=== PATIENT | male | born 1945 | race Caucasian/White ===

== ENCOUNTER 2016-07-23 07:21 | Outpatient (CLI) | payer MEDICARE, OTHER ==
[2016-07-23 19:13] LABS: BASOPHILS % (AUTO) 0.6 %; EOSINOPHILS # (AUTO) 0.1 10^3/uL (0.0-0.7); EOSINOPHILS % (AUTO) 1.5 %; HCT - HEMATOCRIT 44.1 % (42.0-52.0); HGB - HEMOGLOBIN 14.9 g/dL (14.0-18.0); LYMPHOCYTES # (AUTO) 2.1 10^3/uL (1.5-3.5); LYMPHOCYTES % (AUTO) 37.4 %; MEAN CORPUSCULAR HGB CONC 33.9 g/dL (32.0-36.0); MEAN CORPUSCULAR VOLUME 94.6 fL (80.0-94.0); MONOCYTES # (AUTO) 0.5 10^3/uL (0.0-1.0); MONOCYTES % (AUTO) 8.6 %; NEUTROPHILS % (AUTO) 51.9 %; NUCLEATED RED BLOOD CELLS AUTO 0.2 /100WBC; RED BLOOD COUNT 4.66 10^6/uL (4.70-6.10); RED CELL DISTRIBUTION WIDTH 13.1 % (12.0-15.0); UNCORRECTED WHITE BLOOD COUNT 5.7 x10^3/uL; WHITE BLOOD COUNT 5.7 x10^3/uL (4.8-10.8)
[2016-07-23 19:23] LABS: ALBUMIN/GLOBULIN RATIO 1.7 (1.0-2.2); BUN - BLOOD UREA NITROGEN 18 mg/dL (6-20); CALCIUM 9.3 mg/dL (8.5-10.3); CARBON DIOXIDE - CO2 25 mmol/L (21-32); CHLORIDE 102 mmol/L (101-111); CHOL/HDL RATIO 3.3 (<5.0); CHOLESTEROL 131 mg/dL; CREATININE 1.1 mg/dL (0.6-1.2); GFR - MDRD 66 (>89); GLUCOSE 104 mg/dL (70-100); HDL CHOLESTEROL 40 mg/dL; LDL/HDL RATIO 1.7 (<3.6); POTASSIUM 3.8 mmol/L (3.5-5.0); SODIUM 134 mmol/L (135-145); TRIGLYCERIDES 120 mg/dL; VLDL CHOLESTEROL 24 mg/dL
[2016-07-23 19:33] LABS: PSA FREE < 0.005 ng/mL (0.16-2.81)
[2016-07-23 20:03] LABS: HEMOGLOBIN A1C 1.14 g/dL
== END 2016-07-23 07:22 | disposition home or self-care (01) ==
LOC: LAB.N 07:21
PROVIDERS: ATTEND Family Medicine
DX: E78.5 Hyperlipidemia, unspecified (principal); I10 Essential (primary) hypertension; E11.9 Type 2 diabetes mellitus without complications; C61 Malignant neoplasm of prostate
CPT/HCPCS: 36415; 80053; 80061; 83036; 84154; 85025

== ENCOUNTER 2016-11-03 07:34 | Outpatient (CLI) | payer MEDICARE, OTHER ==
[2016-11-03 14:11] LABS: CALCIUM 9.5 mg/dL (8.5-10.3); CREATININE 1.1 mg/dL (0.6-1.2)
[2016-11-03 14:14] LABS: HEMOGLOBIN A1C 0.97 g/dL
== END 2016-11-03 07:35 | disposition home or self-care (01) ==
LOC: LAB.N 07:34
PROVIDERS: ATTEND Family Medicine
DX: I10 Essential (primary) hypertension (principal); E11.9 Type 2 diabetes mellitus without complications
CPT/HCPCS: 36415; 80048; 83036

== ENCOUNTER 2017-02-11 08:00 | Outpatient (CLI) | payer MEDICARE, OTHER ==
[2017-02-11 14:08] LABS: CALCIUM 9.3 mg/dL (8.5-10.3); POTASSIUM 4.1 mmol/L (3.5-5.0)
[2017-02-11 14:12] LABS: HEMOGLOBIN A1C 1.23 g/dL
== END 2017-02-11 08:01 | disposition home or self-care (01) ==
LOC: LAB.N 08:00
PROVIDERS: ATTEND Family Medicine
DX: E11.9 Type 2 diabetes mellitus without complications (principal)
CPT/HCPCS: 36415; 80048; 83036

== ENCOUNTER 2017-05-22 07:55 | Outpatient (CLI) | payer MEDICARE, OTHER ==
[2017-05-22 12:33] LABS: CALCIUM 8.9 mg/dL (8.5-10.3)
[2017-05-22 12:38] LABS: HB2 TOTAL 15.9 g/dL; HEMOGLOBIN A1C 1.04 g/dL; HEMOGLOBIN A1C % 8.1 % (4.6-6.2)
== END 2017-05-22 07:56 | disposition home or self-care (01) ==
LOC: LAB.N 07:55
PROVIDERS: ATTEND Family Medicine
DX: E11.9 Type 2 diabetes mellitus without complications (principal)
CPT/HCPCS: 36415; 80048; 83036

== ENCOUNTER 2017-06-12 10:00 | Outpatient (CLI) | payer MEDICARE, OTHER | END 2017-06-12 10:15 | disposition home or self-care (01) | LOC: RT.N 10:00 | PROVIDERS: ATTEND Family Medicine | DX: R07.89 Other chest pain (principal) | CPT/HCPCS: 93005 ==

== ENCOUNTER 2017-09-01 08:32 | Outpatient (CLI) | payer MEDICARE, OTHER ==
[2017-09-01 13:37] LABS: BASOPHILS % (AUTO) 0.6 %; EOSINOPHILS # (AUTO) 0.1 10^3/uL (0.0-0.7); EOSINOPHILS % (AUTO) 1.4 %; HGB - HEMOGLOBIN 13.9 g/dL (14.0-18.0); LYMPHOCYTES # (AUTO) 1.8 10^3/uL (1.5-3.5); MEAN CORPUSCULAR HEMOGLOBIN 32.5 pg (27.0-31.0); MEAN CORPUSCULAR HGB CONC 33.7 g/dL (32.0-36.0); MEAN CORPUSCULAR VOLUME 96.4 fL (80.0-94.0); MONOCYTES # (AUTO) 0.5 10^3/uL (0.0-1.0); MONOCYTES % (AUTO) 9.8 %; NEUTROPHILS # (AUTO) 2.9 10^3/uL (1.5-6.6); NEUTROPHILS % (AUTO) 54.2 %; PLT - PLATELET COUNT 242 10^3/uL (130-450); RED BLOOD COUNT 4.27 10^6/uL (4.70-6.10); RED CELL DISTRIBUTION WIDTH 13.1 % (12.0-15.0); WHITE BLOOD COUNT 5.4 x10^3/uL (4.8-10.8)
[2017-09-01 13:55] LABS: ALBUMIN 3.9 g/dL (3.2-5.5); ALBUMIN/GLOBULIN RATIO 1.3 (1.0-2.2); ALKALINE PHOSPHATASE 56 IU/L (42-121); ALT ALANINE AMINOTRANSFERASE 33 IU/L (10-60); AST ASPARTATE AMINOTRANSFERASE 28 IU/L (10-42); BILIRUBIN,TOTAL 1.1 mg/dL (0.2-1.0); BUN - BLOOD UREA NITROGEN 13 mg/dL (6-20); CALCIUM 8.9 mg/dL (8.5-10.3); CARBON DIOXIDE - CO2 28 mmol/L (21-32); CHLORIDE 100 mmol/L (101-111); CHOLESTEROL 121 mg/dL; CREATININE 0.9 mg/dL (0.6-1.2); GFR - MDRD 83 (>89); GLUCOSE 160 mg/dL (70-100); HDL CHOLESTEROL 40 mg/dL; LDL CHOLESTEROL,CALCULATED 64 mg/dL; LDL/HDL RATIO 1.6 (<3.6); SODIUM 134 mmol/L (135-145); TOTAL PROTEIN 6.8 g/dL (6.7-8.2); VLDL CHOLESTEROL 17 mg/dL
[2017-09-01 13:56] LABS: HB2 TOTAL 14.2 g/dL; HEMOGLOBIN A1C 1.12 g/dL; HEMOGLOBIN A1C % 9.4 % (4.6-6.2)
== END 2017-09-01 08:33 ==
LOC: LAB.N 08:32
PROVIDERS: ATTEND Family Medicine
DX: E78.5 Hyperlipidemia, unspecified (principal); E11.9 Type 2 diabetes mellitus without complications; I10 Essential (primary) hypertension
CPT/HCPCS: 36415; 80053; 80061; 83036; 83721; 85025

== ENCOUNTER 2017-11-27 08:00 | Outpatient (CLI) | payer MEDICARE, OTHER ==
[2017-11-27 15:43] LABS: CALCIUM 9.3 mg/dL (8.5-10.3)
[2017-11-27 16:28] LABS: HB2 TOTAL 15.5 g/dL; HEMOGLOBIN A1C 0.97 g/dL; HEMOGLOBIN A1C % 7.9 % (4.6-6.2)
== END 2017-11-27 08:01 | disposition home or self-care (01) ==
LOC: LAB.N 08:00
PROVIDERS: ATTEND Family Medicine
DX: E11.65 Type 2 diabetes mellitus with hyperglycemia (principal)
CPT/HCPCS: 36415; 80048; 83036

== ENCOUNTER 2018-03-09 08:00 | Outpatient (CLI) | payer MEDICARE, OTHER ==
[2018-03-09 12:36] LABS: CALCIUM 9.4 mg/dL (8.5-10.3)
[2018-03-09 12:50] LABS: PSA FREE < 0.005 ng/mL (0.16-2.81); PSA TOTAL < 0.008 ng/mL (0.000-2.000)
[2018-03-09 12:56] LABS: HB2 TOTAL 16.4 g/dL; HEMOGLOBIN A1C 0.96 g/dL; HEMOGLOBIN A1C % 7.5 % (4.6-6.2)
== END 2018-03-09 23:59 | disposition home or self-care (01) ==
LOC: LAB.N 08:00
DX: E11.65 Type 2 diabetes mellitus with hyperglycemia (principal); C61 Malignant neoplasm of prostate; I10 Essential (primary) hypertension
CPT/HCPCS: 36415; 80048; 83036; 84153; 84154

== ENCOUNTER 2018-04-07 09:53 | Outpatient (CLI) | payer MEDICARE, OTHER ==
[2018-04-07] MEDS ORDERED: REGADENOSON 0.4 MG/5 ML SYRINGE IVP ONE ×2 (10:31→15:56)
--- NOTE | 2018-04-07 13:29 | CARDIAC PROCEDURE NOTE ---
DATE OF SERVICE: 04/07/2018 Physician: Isabella Wade MD, [facility] INDICATIONS: Chest pain. CARDIAC RISK FACTORS: Male gender, diabetes, hyperlipidemia, hypertension. PROCEDURE: After signing informed consent, the patient underwent a pharmaceutical stress test with nuclear myocardial perfusion imaging. Resting heart rate: 80. Peak heart rate: 115. Resting blood pressure: 145/80. Peak blood pressure: 160/70. Lexiscan was infused per protocol. The patient had brief flushing, no other symptoms. He did not have his "ice-like chest pain that resolves with burping". RESTING EKG: Normal sinus rhythm, right axis deviation, RSR' in V1. EKG AT [facility]: [address] depressions in leads II, III, aVF, and [address] depressions in leads V3 through V6. SUMMARY 1. Abnormal resting EKG with right axis deviation and RSR' suggesting cor pulmonale. 2. Ischemic changes are present by EKG criteria, on this pharmaceutical stress test. 3. Nuclear images reported separately. cc: Griselda Bhakta DO TD: 04/07/2018 13:12 MTDD
== END 2018-04-07 09:54 | disposition home or self-care (01) ==
LOC: DI 09:53
PROVIDERS: ATTEND Family Medicine
DX: R07.89 Other chest pain (principal); R94.31 Abnormal electrocardiogram [ECG] [EKG]
CPT/HCPCS: 78452; 93016; 93017; 93018; A9500; J2785

== ENCOUNTER 2018-09-20 | Outpatient (CLI) | payer MEDICARE, OTHER | END 2018-09-20 23:59 | disposition home or self-care (01) | DX: E11.9 Type 2 diabetes mellitus without complications (principal) ==

== ENCOUNTER 2018-12-27 08:17 | Outpatient (CLI) | payer MEDICARE, OTHER ==
[2018-12-27 12:35] LABS: HB2 TOTAL 14.9 g/dL; HEMOGLOBIN A1C 0.87 g/dL; HEMOGLOBIN A1C % 7.5 % (4.6-6.2)
== END 2018-12-27 23:59 | disposition home or self-care (01) ==
LOC: LAB.N 08:17
PROVIDERS: ATTEND Physician Assistant Medical
DX: E11.9 Type 2 diabetes mellitus without complications (principal)
CPT/HCPCS: 36415; 83036

== ENCOUNTER 2019-05-02 07:06 | Outpatient (CLI) | payer MEDICARE, OTHER ==
[2019-05-02 12:25] LABS: BASOPHILS % (AUTO) 0.4 %; EOSINOPHILS # (AUTO) 0.1 10^3/uL (0.0-0.7); EOSINOPHILS % (AUTO) 1.9 %; HGB - HEMOGLOBIN 13.1 g/dL (14.0-18.0); LYMPHOCYTES # (AUTO) 2.1 10^3/uL (1.5-3.5); LYMPHOCYTES % (AUTO) 30.5 %; MEAN CORPUSCULAR HEMOGLOBIN 30.3 pg (27.0-31.0); MEAN CORPUSCULAR HGB CONC 32.1 g/dL (32.0-36.0); MEAN CORPUSCULAR VOLUME 94.2 fL (80.0-94.0); MEAN PLATELET VOLUME 9.2 fL (7.4-11.4); MONOCYTES # (AUTO) 0.5 10^3/uL (0.0-1.0); MONOCYTES % (AUTO) 7.4 %; NEUTROPHILS % (AUTO) 59.4 %; PLT - PLATELET COUNT 341 10^3/uL (130-450); RED BLOOD COUNT 4.33 10^6/uL (4.70-6.10); RED CELL DISTRIBUTION WIDTH 13.1 % (12.0-15.0); WHITE BLOOD COUNT 6.8 x10^3/uL (4.8-10.8)
[2019-05-02 12:42] LABS: CHOL/HDL RATIO 3.2 (<5.0); CHOLESTEROL 109 mg/dL; HDL CHOLESTEROL 34 mg/dL; LDL CHOLESTEROL,CALCULATED 60 mg/dL; LDL/HDL RATIO 1.8 (<3.6); VLDL CHOLESTEROL 15 mg/dL
[2019-05-02 12:48] LABS: PSA FREE < 0.005 ng/mL (0.16-2.81)
== END 2019-05-02 23:59 | disposition home or self-care (01) ==
LOC: LAB.N 07:06
PROVIDERS: ATTEND Physician Assistant Medical
DX: E78.5 Hyperlipidemia, unspecified (principal); C61 Malignant neoplasm of prostate; I10 Essential (primary) hypertension
CPT/HCPCS: 36415; 80061; 83721; 84153; 84154; 85025

== ENCOUNTER 2019-05-04 07:00 | Outpatient (CLI) | payer MEDICARE, OTHER ==
[2019-05-05 12:26] LABS: BILIRUBIN,URINE NEGATIVE (NEGATIVE); GLUCOSE, URINE (UA) NEGATIVE (NEGATIVE); KETONES,URINE (UA) NEGATIVE (NEGATIVE); NITRITE,URINE NEGATIVE (NEGATIVE); PH,URINE 5.5 PH (5.0-7.5); UROBILINOGEN,URINE 0.2 (NORMAL) E.U./dL (NORMAL)
[2019-05-05 12:28] LABS: CLARITY,URINE CLEAR (CLEAR)
[2019-05-05 12:44] LABS: BACTERIA,URINE Few /HPF (None Seen); RBC,URINE TNTC /HPF (0-5); SQUAMOUS EPITHELIAL CELL,UR RARE Squamous (<= Few)
== END 2019-05-04 23:59 | disposition home or self-care (01) ==
LOC: LAB.R 07:00
PROVIDERS: ATTEND Physician Assistant Medical
DX: R31.9 Hematuria, unspecified (principal)
CPT/HCPCS: 81001; 81003; 87086

== ENCOUNTER 2019-05-04 14:28 | Outpatient (CLI) | payer MEDICARE, OTHER ==
[2019-05-04 18:39] LABS: HB2 TOTAL 13.7 g/dL; HEMOGLOBIN A1C 0.85 g/dL; HEMOGLOBIN A1C % 7.8 % (4.6-6.2)
== END 2019-05-04 23:59 | disposition home or self-care (01) ==
LOC: LAB.N 14:28
PROVIDERS: ATTEND Physician Assistant Medical
DX: E11.9 Type 2 diabetes mellitus without complications (principal)
CPT/HCPCS: 36415; 83036

== ENCOUNTER 2019-08-05 09:22 | Outpatient (CLI) | payer MEDICARE, OTHER ==
[2019-08-05 11:30] LABS: BASOPHILS # (AUTO) 0.1 10^3/uL (0.0-0.1); BASOPHILS % (AUTO) 0.7 %; EOSINOPHILS % (AUTO) 0.6 %; HGB - HEMOGLOBIN 11.6 g/dL (14.0-18.0); LYMPHOCYTES # (AUTO) 1.5 10^3/uL (1.5-3.5); LYMPHOCYTES % (AUTO) 21.2 %; MEAN CORPUSCULAR HEMOGLOBIN 29.4 pg (27.0-31.0); MEAN CORPUSCULAR HGB CONC 32.5 g/dL (32.0-36.0); MEAN CORPUSCULAR VOLUME 90.6 fL (80.0-94.0); MEAN PLATELET VOLUME 8.5 fL (7.4-11.4); MONOCYTES # (AUTO) 0.6 10^3/uL (0.0-1.0); MONOCYTES % (AUTO) 8.7 %; NEUTROPHILS # (AUTO) 4.8 10^3/uL (1.5-6.6); NEUTROPHILS % (AUTO) 68.5 %; PLT - PLATELET COUNT 458 10^3/uL (130-450); RED BLOOD COUNT 3.94 10^6/uL (4.70-6.10); RED CELL DISTRIBUTION WIDTH 13.2 % (12.0-15.0)
[2019-08-05 11:54] LABS: HEMOGLOBIN A1C 0.68 g/dL; HEMOGLOBIN A1C % 7.3 % (4.6-6.2)
[2019-08-05 11:56] LABS: ALBUMIN 3.5 g/dL (3.2-5.5); ALBUMIN/GLOBULIN RATIO 0.8 (1.0-2.2); BILIRUBIN,TOTAL 0.9 mg/dL (0.2-1.0); CREATININE 1.3 mg/dL (0.6-1.2); TOTAL PROTEIN 7.7 g/dL (6.7-8.2)
== END 2019-08-05 09:23 | disposition home or self-care (01) ==
LOC: LAB.WCP 09:22
PROVIDERS: ATTEND Physician Assistant
DX: E11.9 Type 2 diabetes mellitus without complications (principal)
CPT/HCPCS: 36415; 80053; 83036; 85025

== ENCOUNTER 2020-05-11 07:06 | Outpatient (CLI) | payer MEDICARE, OTHER ==
[2020-05-11 12:27] LABS: BASOPHILS % (AUTO) 0.7 %; EOSINOPHILS # (AUTO) 0.1 10^3/uL (0.0-0.7); EOSINOPHILS % (AUTO) 1.9 %; HCT - HEMATOCRIT 40.5 % (42.0-52.0); HGB - HEMOGLOBIN 12.8 g/dL (14.0-18.0); LYMPHOCYTES # (AUTO) 1.7 10^3/uL (1.5-3.5); LYMPHOCYTES % (AUTO) 29.8 %; MEAN CORPUSCULAR HEMOGLOBIN 29.4 pg (27.0-31.0); MEAN CORPUSCULAR HGB CONC 31.6 g/dL (32.0-36.0); MEAN CORPUSCULAR VOLUME 93.1 fL (80.0-94.0); MEAN PLATELET VOLUME 9.1 fL (7.4-11.4); MONOCYTES # (AUTO) 0.5 10^3/uL (0.0-1.0); MONOCYTES % (AUTO) 8.4 %; NEUTROPHILS # (AUTO) 3.4 10^3/uL (1.5-6.6); PLT - PLATELET COUNT 336 10^3/uL (130-450); RED BLOOD COUNT 4.35 10^6/uL (4.70-6.10); RED CELL DISTRIBUTION WIDTH 13.4 % (12.0-15.0); WHITE BLOOD COUNT 5.7 x10^3/uL (4.8-10.8)
[2020-05-11 12:30] LABS: ALBUMIN 3.9 g/dL (3.2-5.5); ALBUMIN/GLOBULIN RATIO 1.1 (1.0-2.2); ALKALINE PHOSPHATASE 74 IU/L (42-121); ALT ALANINE AMINOTRANSFERASE 14 IU/L (10-60); AST ASPARTATE AMINOTRANSFERASE 15 IU/L (10-42); BILIRUBIN,TOTAL 0.9 mg/dL (0.2-1.0); BUN - BLOOD UREA NITROGEN 24 mg/dL (6-20); CARBON DIOXIDE - CO2 26 mmol/L (21-32); CHLORIDE 101 mmol/L (101-111); CHOL/HDL RATIO 3.5 (<5.0); CHOLESTEROL 111 mg/dL; CREATININE 1.7 mg/dL (0.6-1.2); GFR - MDRD 40 (>89); GLUCOSE 138 mg/dL (70-100); HDL CHOLESTEROL 32 mg/dL; LDL CHOLESTEROL,CALCULATED 61 mg/dL; LDL/HDL RATIO 1.9 (<3.6); POTASSIUM 4.2 mmol/L (3.5-5.0); SODIUM 134 mmol/L (135-145); TOTAL PROTEIN 7.5 g/dL (6.7-8.2); TRIGLYCERIDES 90 mg/dL; VLDL CHOLESTEROL 18 mg/dL
[2020-05-11 12:34] LABS: ESTIMATED AVERAGE GLUCOSE 169 mg/dL (70-100); HEMOGLOBIN A1c% 7.5 % (4.27-6.07)
[2020-05-11 12:38] LABS: THYROID STIMULATING HORMONE 2.15 uIU/mL (0.34-5.60)
[2020-05-11 12:46] LABS: CREATININE,URINE 213.5 mg/dL; MICROALBUM/CREATININE RATIO,UR 4.2 ug/mg (<30.0); MICROALBUMIN,URINE 0.9 mg/dL (0-300.0)
== END 2020-05-11 23:59 | disposition home or self-care (01) ==
LOC: LAB.WCP 07:06
PROVIDERS: ATTEND Physician Assistant Medical
DX: E11.9 Type 2 diabetes mellitus without complications (principal); C61 Malignant neoplasm of prostate; Z95.1 Presence of aortocoronary bypass graft; C64.1 Malignant neoplasm of right kidney, except renal pelvis
CPT/HCPCS: 36415; 80053; 80061; 82043; 82570; 83036; 83721; 84153; 84443; 85025

== ENCOUNTER 2020-05-15 09:37 | Outpatient (CLI) | payer MEDICARE, OTHER ==
--- NOTE | 2020-05-16 12:05 | Ultrasound Report ---
LIMITED ULTRASOUND OF LEFT BREAST: 05/15/2020 CLINICAL: Focal left breast pain. Comparison is made to exams dated: 05/15/2020 ultrasound and 05/15/2020 mammogram - formerly [facility]. Ultrasound of the left breast retroareolar was performed. There is gynecomastia in the left breast that correlates with mammography, reported pain, and reporte d tenderness. IMPRESSION: BENIGN Gynecomastia is present which can be symptomatic. There is no sonographic evidence of malignancy. Findings and recommendations were conveyed to the patient at time of exam. This exam was interpreted at Station ID: [id number]. Electronically Signed By: Shauna Frost M.D. krg/:05/15/2020 12:07:12 Ultrasound BI-RADS: 2 Benign BI-RADS CATEGORY: (2) - 2 Unspecified - other recall n/a LATERALITY: (B)
--- NOTE | 2020-05-16 12:05 | Mammography Report ---
MALE BILATERAL DIGITAL DIAGNOSTIC MAMMOGRAM 3D/2D: 05/15/2020 CLINICAL: Focal bilateral nipple pain. No prior exams were available for comparison. There is gynecomastia in both breasts. No significant masses, calcifications, or other findings are seen in either breast. IMPRESSION: INCOMPLETE: NEEDS ADDITIONAL IMAGING EVALUATION Bilateral gynecomastia is present which corresponds to the palpable, painful areas bilaterally. Bilat eral breast ultrasound is recommended for full evaluation of this area. This was performed immediatel y following this exam. This exam was interpreted at Station ID: [id number]. NOTE: For mammograms, a report in lay terms will be sent to the patient. Approximately 15% of breast malignancies will not be visualized mammographically. In the management of a palpable breast mass, a negative mammogram must not discourage biopsy of a clinically suspicious lesion. Electronically Signed By: Shauna carpio/:05/15/2020 11:04:56 ACR BI-RADS Category 0: Incomplete 3340F PARENCHYMAL PATTERN: (A) - The breast(s) demonstrate(s) scattered fibroglandular densities. BI-RADS CATEGORY: (0) - 0 Ultrasound [id number] Immediate follow-up LATERALITY: (B)
--- NOTE | 2020-05-16 12:05 | Ultrasound Report ---
LIMITED ULTRASOUND OF RIGHT BREAST: 05/15/2020 CLINICAL: Focal right breast pain. Comparison is made to exam dated: 05/15/2020 mammogram - [facility]. Ultrasound of the right breast retroareolar was performed. There is gynecomastia in the right breast that correlates with mammography, reported pain, and report ed tenderness. IMPRESSION: BENIGN Gynecomastia is present and can be symptomatic. There is no sonographic evidence of malignancy. Findings and recommendations were conveyed to the patient at time of exam. This exam was interpreted at Station ID: [id number]. Electronically Signed By: Shauna carpio/:05/15/2020 12:06:16 Ultrasound BI-RADS: 2 Benign BI-RADS CATEGORY: (2) - 2 Unspecified - other recall n/a LATERALITY: (B)
== END 2020-05-15 09:38 | disposition home or self-care (01) ==
LOC: DI 09:37
PROVIDERS: ATTEND Physician Assistant Medical
DX: N62 Hypertrophy of breast (principal)

== ENCOUNTER 2020-06-08 07:30 | Outpatient (CLI) | payer MEDICARE, OTHER ==
[2020-06-08] MEDS ORDERED: IOPAMIDOL-300 100 ML VIAL ONE (07:33)
[2020-06-08] MEDS ORDERED: IOPAMIDOL-300 50 ML VIAL ONE (07:33)
[2020-06-08] MEDS ORDERED: IOPAMIDOL-300 100 ML VIAL IVP ONE (08:59)
[2020-06-08] MEDS ORDERED: IOPAMIDOL-300 50 ML VIAL PO ONE (09:00)
--- NOTE | 2020-06-08 11:12 | CT Report ---
PROCEDURE: Abdomen/Pelvis W INDICATIONS: KIDNEY CA CONTRAST: IV CONTRAST: Isovue 300 ml: 100 PO CONTRAST: Isovue 300 ml50 TECHNIQUE: After the administration of oral and intravenous contrast, 5 mm thick sections acquired from the rivka phragms to the symphysis. 5 mm thick coronal and sagittal reformats were acquired. For radiation do se reduction, the following was used: automated exposure control, adjustment of mA and/or kV accordi ng to patient size. COMPARISON: Chest CT from today. FINDINGS: Image quality: Excellent. ABDOMEN: Lung bases: Lung bases are clear. Heart size is normal. Multiple bibasilar pulmonary nodules consistent with metastatic disease. Specific measured pulmonary nodules are as follows: Image 6/5:0.6 cm right lower lobe pulmonary nodule. Image 9/5:0.9 x 1.5 cm left lower lobe pulmonary nodule Image 14/5:4 separate pulmonary nodules in the left lower lobe, the largest of which measures 0.9 cm. Image 19/5, extreme left lung base, 1.5 cm maximum diameter left lower lobe pulmonary nodule. Solid organs: Liver and spleen are normal in size and enhancement. Gallbladder is surgically absent Biliary system is non dilated. Pancreas enhances normally. No adrenal nodules. Right kidney is kerr rgically absent. Left kidney is unremarkable. Dilated left ureter with question of soft tissue densit y at the distal ureter. Peritoneum and bowel: Bowel loops demonstrate normal wall thickness and caliber. The wall of the cec um and right colon is somewhat prominent, likely secondary to underdistention. No free fluid or air. Nodes and vessels: No retroperitoneal or mesenteric adenopathy by size criteria. Aorta and inferior vena cava are normal in size. Miscellaneous: No ventral hernias. PELVIS: Genitourinary: Bladder is decompressed. Bladder wall is likely thickened. Miscellaneous: Small fat-containing left inguinal hernia. No inguinal adenopathy. Bones: No suspicious bony lesions. No vertebral body compression fractures. IMPRESSION: 1. Findings highly suspicious for pulmonary metastatic disease. Please refer to a separate report for CT chest findings. 2. Surgical absence of right kidney. Left kidney is unremarkable. 3. Dilated left ureter with question of soft tissue mass at the distal aspect of the ureter. Question possible transitional cell carcinoma. 4. Diffuse bladder wall thickening. Comment: Consider CT IVP versus urological referral for left retrograde pyelogram Comment: Reviewed by: Andrade Kraft MD on 06/08/2020 11:10 AM PDT Approved by: Andrade Kraft MD on 06/08/2020 11:10 AM PDT Station ID: [id number]
--- NOTE | 2020-06-08 12:56 | CT Report ---
PROCEDURE: CHEST W INDICATIONS: KIDNEY CA CONTRAST: IV CONTRAST: Isovue 300 ml: 100 PO CONTRAST: Isovue 300 ml50 TECHNIQUE: After the administration of intravenous contrast, 5 mm thick sections acquired from the pulmonary api joe to the posterior costophrenic angles. 7 mm thick coronal MIP reformats were acquired. For radia tion dose reduction, the following was used: automated exposure control, adjustment of mA and/or kV according to patient size. COMPARISON: CT abdomen and pelvis from the same date. FINDINGS: Image quality: Excellent. Lungs and pleura: Multiple bilateral pulmonary nodules, suspicious for pulmonary metastatic disease. Index lesions are as follows: Right lower lobe, posterior subpleural location, image 158/3:0.6 x 1.4 cm. Left lower lobe, image 164/3, 2.0 x 0.9 cm. Left lower lobe, image 169/3, 1.0 x 1.9 cm. Left lower lobe, image 192/3, 0.9 x 1.5 cm. Extreme basilar aspect of left lower lobe, image 222/3, 1.0 x 1.6 cm. No acute air space opacities. No pleural effusions or pneumothorax. Central and peripheral airways are patent and normal in caliber. Mediastinum: Remote midline sternotomy. Probable CABG. Coronary artery calcifications. Heart size is normal. No pericardial effusion. No mediastinal or hilar adenopathy by size criteria. Thoracic ao rta and central pulmonary arteries are normal in size. Esophagus is normal in caliber. No hiatal he rnia. Bones and chest wall: No suspicious bony lesions. No vertebral body compression fractures. No axil irving or supraclavicular adenopathy by size criteria. Thyroid gland is unremarkable as imaged. Abdomen: Visualized upper abdominal solid organs appear normal. Upper abdominal bowel loops are nor mal in caliber. IMPRESSION: Findings are highly suspicious for pulmonary metastatic disease, as described above. Reviewed by: Andrade Kraft MD on 06/08/2020 12:54 PM PDT Approved by: Andrade Kraft MD on 06/08/2020 12:54 PM PDT Station ID: [id number]
--- NOTE | 2020-06-08 16:09 | Nuclear Medicine Report ---
PROCEDURE: Bone Whole Body INDICATIONS: KIDNEY CANCER RADIOPHARMACEUTICAL: 27.3 mCi Tc-99m MDP IV. TECHNIQUE: Delayed whole-body scintigrams were obtained approximately 3-4 hours after intravenous injection of r adiotracer. Anterior and posterior views were acquired from vertex to feet. Additional left and rig ht oblique views of the were obtained. COMPARISON: None available. FINDINGS: No areas of relative intense radiotracer uptake identified about be consistent with osseous metastati c disease. No areas of photopenia identified in the osseous skeleton. Focus of subtle increased radio tracer uptake identified in the left mandible compatible with dental disease. Subtle radiotracer upta ke identified in the cervical spine, shoulders bilaterally and the knees bilaterally compatible with osteoarthritis. No abnormal soft tissue uptake. Activity in the left kidney is normal. No activity id entified in the right kidney presumably secondary to nephrectomy. IMPRESSION: No scintigraphic evidence of osseous metastatic disease. Reviewed by: Krystyna Marcus MD, PhD on 06/08/2020 4:08 PM PDT Approved by: Krystyna Marcus MD, PhD on 06/08/2020 4:08 PM PDT Station ID: [id number]
== END 2020-06-08 07:31 | disposition home or self-care (01) ==
LOC: DI 07:30
PROVIDERS: ATTEND Internal Medicine
DX: C64.1 Malignant neoplasm of right kidney, except renal pelvis (principal); R93.89 Abnormal findings on diagnostic imaging of other specified body structures; R93.41 Abnormal radiologic findings on diagnostic imaging of renal pelvis, ureter, or bladder; R91.8 Other nonspecific abnormal finding of lung field; Z90.5 Acquired absence of kidney
CPT/HCPCS: 71260; 74177; 78306; Q9967

== ENCOUNTER 2020-07-09 16:41 | Outpatient (CLI) | payer MEDICARE, OTHER | END 2020-07-09 16:42 | disposition home or self-care (01) | LOC: COV 16:41 | DX: Z01.812 Encounter for preprocedural laboratory examination (principal); Z20.822 Contact with and (suspected) exposure to COVID-19 ==

== ENCOUNTER 2020-07-10 07:09 | Day surgery (SDC) | payer MEDICARE, OTHER ==
[2020-07-10] MEDS ORDERED: LACTATED RINGERS 1,000 ML IV ONE ×2 (07:23→10:10)
[2020-07-10] MEDS ORDERED: MIDAZOLAM 2 MG/2 ML VIAL ONE (08:34)
[2020-07-10] MEDS ORDERED: PROPOFOL 200 MG/20 ML VIAL IVP ONE (08:34)
[2020-07-10] MEDS ORDERED: fentaNYL 100 MCG/2 ML VIAL ONE (08:34)
--- NOTE | 2020-07-10 08:59 | ANESTHESIA ---
Pre-Anesthesia VS, & Labs - Diagnosis hx of polyps - Procedure colonoscopy Vital Signs: Temp Pulse Resp BP Pulse Ox 35.8 C L 87 18 128/75 97 07/10/20 07:28 07/10/20 07:28 07/10/20 07:28 07/10/20 07:28 07/10/20 07:28 Height: 5 ft 9 in Weight (kg): 86 kg Body Mass Index: 28.0 BMI Classification: Overweight - NPO >8 hours - Lab Results Current Lab Results: Laboratory Tests 07/10/20 07:41: POC Whole Bld Glucose 172 H Home Medications and Allergies Aspirin/Calcium Carbonate/Mag [Aspirin Buffered 325 mg Tab] 325 mg PO DAILY 10/06/14 Lisinopril 20 mg PO DAILY 10/06/14 Glipizide [Glipizide Xl] 5 mg PO DAILY 10/09/14 Sildenafil Citrate [Viagra] 100 mg PO DAILY PRN 10/09/14 Atorvastatin [Lipitor] 40 mg PO DAILY 06/20/20 Clobetasol 0.05% Oint [Temovate 0.05% Oint] 1 applic TOP BID 06/20/20 Loratadine/Pseudoephedrine [Allerclear D-24Hr ER Tablet] 10 mg PO DAILY 06/20/20 Metoprolol Szymanski/Hydrochlorothiaz [Dutoprol 100-12.5 mg Tablet] 25 mg PO DAILY 06/20/20 SITagliptin [Januvia] 100 mg PO DAILY 06/20/20 Sildenafil Citrate [Viagra] 100 mg PO PRN PRN 06/20/20 Allergies/Adverse Reactions: Allergies Allergy/AdvReac Type Severity Reaction Status Date / Time No Known Drug Allergies Allergy Verified 06/20/20 09:12 Anes History & Medical History - Anesthetic History Anesthesia Complications: reports: No previous complications Family history of Anesthesia Complications: Denies Family history of Malignant Hyperthermia: Denies - Medical History Cardiovascular: reports: Hypertension, High cholesterol Pulmonary: reports: Sleep apnea, Other (new diagnosis of 4 L lung nodules, biopsy pending next week) Gastrointestinal: reports: None Urinary: reports: Other (nephrectomy s/p renal carcinoma 09/2019) Musculoskeletal: reports: Osteoarthritis Endocrine/Autoimmune: reports: Type 2 diabetes Skin: reports: None Smoking Status: Never smoker - Surgical History General: reports: Colonoscopy Cardiothoracic: reports: CABG (3 vessel CABG 2019), Cardiac catheterization Urologic: reports: Nephrectomy (2020), Prostatic surgery Exam General: Alert, Oriented x3, Cooperative Dental: WNL Mouth Openin Fingerbreadth Neck Mobility: Normal Mallampati classification: II Thyromental Distance: 4-6 cm Respiratory: Lungs clear Cardiovascular: Regular rate Plan Anesthesia Type: Total IV Consent for Procedure(s) Verified and Reviewed: Yes Code Status: Attempt Resuscitation ASA classification: 3-Severe systemic disease Is this case an emergency?: No
[2020-07-10 10:19] VITALS: BP 131/76
--- NOTE | 2020-07-10 10:26 | ANESTHESIA POST OP EVALUATION ---
Anesthesia Post Eval - Post Anesthesia Eval Vitals: Last Vital Signs Temp 36.2 C L 07/10/20 10:18 Pulse 73 07/10/20 10:18 Resp 12 07/10/20 10:18 BP 131/76 H 07/10/20 10:18 Pulse Ox 99 07/10/20 10:18 CV Function Including HR & BP: Stable Pain Control: Satisfactory Nausea & Vomiting: Negative Mental Status: Baseline Respiratory Status: Airway Patent Hydration Status: Satisfactory Anesthesia Complications: None
== END 2020-07-10 07:10 | disposition home or self-care (01) ==
LOC: SDS 07:09
PROVIDERS: ATTEND Surgery
PROC: 0DBH8ZZ Excision of Cecum, Via Natural or Artificial Opening Endoscopic (ICD-10-PCS; 2020-07-10)
PROC: 0DBK8ZZ Excision of Ascending Colon, Via Natural or Artificial Opening Endoscopic (ICD-10-PCS; principal; 2020-07-10 08:15)
DX: Z12.11 Encounter for screening for malignant neoplasm of colon (principal); D12.0 Benign neoplasm of cecum; D12.2 Benign neoplasm of ascending colon; K57.30 Diverticulosis of large intestine without perforation or abscess without bleeding; K64.8 Other hemorrhoids; K64.4 Residual hemorrhoidal skin tags; G47.33 Obstructive sleep apnea (adult) (pediatric); E66.3 Overweight; Z68.28 Body mass index [BMI] 28.0-28.9, adult
CPT/HCPCS: 45380; J7120

== ENCOUNTER 2020-07-30 09:52 | Outpatient (CLI) | payer MEDICARE, OTHER ==
[2020-07-30 12:32] LABS: CALCIUM 9.4 mg/dL (8.5-10.3); CREATININE 1.9 mg/dL (0.6-1.2); POTASSIUM 4.9 mmol/L (3.5-5.0)
[2020-07-30 12:37] LABS: ESTIMATED AVERAGE GLUCOSE 197 mg/dL (70-100); HEMOGLOBIN A1c% 8.5 % (4.27-6.07)
== END 2020-07-30 09:53 | disposition home or self-care (01) ==
LOC: LAB.N 09:52
PROVIDERS: ATTEND Physician Assistant Medical
DX: E11.9 Type 2 diabetes mellitus without complications (principal)
CPT/HCPCS: 36415; 80048; 83036

== ENCOUNTER 2020-10-04 16:14 | Outpatient (CLI) | payer MEDICARE, OTHER | END 2020-10-04 16:15 | disposition home or self-care (01) | LOC: COV 16:14 | PROVIDERS: ATTEND Internal Medicine | DX: Z01.812 Encounter for preprocedural laboratory examination (principal); Z20.822 Contact with and (suspected) exposure to COVID-19 ==

== ENCOUNTER 2020-10-26 08:00 | Outpatient (CLI) | payer MEDICARE, OTHER ==
[2020-10-26 13:08] LABS: ESTIMATED AVERAGE GLUCOSE 174 mg/dL (70-100); HEMOGLOBIN A1c% 7.7 % (4.27-6.07)
[2020-10-26 14:09] LABS: ALBUMIN/GLOBULIN RATIO 0.7 (1.0-2.2); ALKALINE PHOSPHATASE 58 IU/L (42-121); ALT ALANINE AMINOTRANSFERASE 45 IU/L (10-60); AST ASPARTATE AMINOTRANSFERASE 28 IU/L (10-42); BILIRUBIN,TOTAL 0.8 mg/dL (0.2-1.0); BUN - BLOOD UREA NITROGEN 18 mg/dL (6-20); CALCIUM 9.3 mg/dL (8.5-10.3); CARBON DIOXIDE - CO2 25 mmol/L (21-32); CHLORIDE 102 mmol/L (101-111); CHOL/HDL RATIO 3.2 (<5.0); CHOLESTEROL 97 mg/dL; CREATININE 1.8 mg/dL (0.6-1.2); GFR - MDRD 37 (>89); GLUCOSE 122 mg/dL (70-100); HDL CHOLESTEROL 30 mg/dL; LDL CHOLESTEROL,CALCULATED 59 mg/dL; POTASSIUM 4.9 mmol/L (3.5-5.0); SODIUM 140 mmol/L (135-145); TOTAL PROTEIN 7.5 g/dL (6.7-8.2); TRIGLYCERIDES 42 mg/dL; VLDL CHOLESTEROL 8 mg/dL
== END 2020-10-26 23:59 | disposition home or self-care (01) ==
LOC: LAB.WCP 08:00
PROVIDERS: ATTEND Physician Assistant Medical
DX: E11.9 Type 2 diabetes mellitus without complications (principal)
CPT/HCPCS: 36415; 80053; 80061; 83036; 83721

== ENCOUNTER 2021-05-08 13:10 | Outpatient (CLI) | payer MEDICARE, OTHER ==
[2021-05-08 13:22] LABS: ESTIMATED AVERAGE GLUCOSE 189 mg/dL (70-100); HEMOGLOBIN A1c% 8.2 % (4.27-6.07)
== END 2021-05-08 13:11 | disposition home or self-care (01) ==
LOC: LAB 13:10
PROVIDERS: ATTEND Physician Assistant Medical
DX: E11.9 Type 2 diabetes mellitus without complications (principal)
CPT/HCPCS: 36415; 83036

== ENCOUNTER 2021-05-22 09:40 | Inpatient (IN) | payer MEDICARE, OTHER ==
--- NOTE | 2021-05-22 10:14 | XRAY Report ---
PROCEDURE: Chest 1 View X-Ray INDICATIONS: chest pain TECHNIQUE: One view of the chest was acquired. COMPARISON: CT chest 04/03/2021 FINDINGS: Surgical changes and devices: Status post CABG procedure. Lungs and pleura: No pleural effusions or pneumothorax. Lungs are clear of acute opacities. Multipl e bibasilar lung masses compatible with known metastatic disease are not significantly changed compar ed to prior CT scan. Mediastinum: Mediastinal contours appear normal. Heart size is normal. Bones and chest wall: No suspicious bony lesions. Overlying soft tissues appear unremarkable. IMPRESSION: No acute cardiopulmonary disease process. Reviewed by: Krystyna Marcus MD, PhD on 05/22/2021 10:12 AM PDT Approved by: Krystyna Marcus MD, PhD on 05/22/2021 10:12 AM PDT Station ID: [id number]
[2021-05-22] MEDS ORDERED: IOVERSOL 320 100 ML VIAL IVP ONE ×2 (10:18→10:45)
[2021-05-22 10:23] LABS: BASOPHILS # (AUTO) 0.1 10^3/uL (0.0-0.1); BASOPHILS % (AUTO) 1.1 %; EOSINOPHILS # (AUTO) 0.1 10^3/uL (0.0-0.7); EOSINOPHILS % (AUTO) 0.9 %; HCT - HEMATOCRIT 47.7 % (42.0-52.0); HGB - HEMOGLOBIN 14.6 g/dL (14.0-18.0); LYMPHOCYTES % (AUTO) 31.3 %; MEAN CORPUSCULAR HEMOGLOBIN 24.8 pg (27.0-31.0); MEAN CORPUSCULAR HGB CONC 30.6 g/dL (32.0-36.0); MEAN CORPUSCULAR VOLUME 81.1 fL (80.0-94.0); MEAN PLATELET VOLUME 8.7 fL (7.4-11.4); MONOCYTES # (AUTO) 0.4 10^3/uL (0.0-1.0); NEUTROPHILS # (AUTO) 3.9 10^3/uL (1.5-6.6); NEUTROPHILS % (AUTO) 60.4 %; PLT - PLATELET COUNT 283 10^3/uL (130-450); RED BLOOD COUNT 5.88 10^6/uL (4.70-6.10); RED CELL DISTRIBUTION WIDTH 20.7 % (12.0-15.0); WHITE BLOOD COUNT 6.5 x10^3/uL (4.8-10.8)
[2021-05-22 10:29] LABS: VBG BASE EXCESS -4.5 mmol/L (-2 - +2); VBG HCO3 23.3 mmol/L (23-28); VBG PCO2 53.5 mmHg (41-51); VBG PH 7.256 (7.31-7.41); VBG TOTAL CO2 24.9 mmol/L (24-29)
[2021-05-22 10:30] LABS: ALBUMIN 2.6 g/dL (3.2-5.5); ALBUMIN/GLOBULIN RATIO 0.5 (1.0-2.2); ALKALINE PHOSPHATASE 97 IU/L (42-121); ALT ALANINE AMINOTRANSFERASE 29 IU/L (10-60); AST ASPARTATE AMINOTRANSFERASE 34 IU/L (10-42); BILIRUBIN,TOTAL 0.6 mg/dL (0.2-1.0); BUN - BLOOD UREA NITROGEN 17 mg/dL (6-20); CALCIUM 8.7 mg/dL (8.5-10.3); CARBON DIOXIDE - CO2 25 mmol/L (21-32); CHLORIDE 92 mmol/L (101-111); CK- CREATINE KINASE 53 IU/L (22-269); CREATININE 1.6 mg/dL (0.6-1.2); ETOH - ETHANOL < 5.0 mg/dL; GFR - MDRD 42 (>89); GLUCOSE 225 mg/dL (70-100); LIPASE 91 U/L (22-51); POTASSIUM 3.8 mmol/L (3.5-5.0); SODIUM 133 mmol/L (135-145); TOTAL PROTEIN 7.6 g/dL (6.7-8.2)
[2021-05-22] MEDS ORDERED: SODIUM CHLORIDE 0.9% 1,000 ML IV STA (10:33)
[2021-05-22 10:44] LABS: INR 1.3 (0.8-1.2)
--- NOTE | 2021-05-22 10:53 | CT Report ---
PROCEDURE: CT brain without contrast INDICATIONS: Altered mental status TECHNIQUE: Noncontrast 5 mm thick angled axial sections acquired from the foramen magnum to the vertex. For rad iation dose reduction, the following was used: automated exposure control, adjustment of mA and/or k V according to patient size. COMPARISON: None. FINDINGS: Image quality: Excellent. CSF spaces: Basal cisterns are patent. No extra-axial fluid collections. Ventricles are normal in size and shape. Brain: No midline shift. No intracranial masses or hemorrhage. Childs-white matter interface is norm al. Cerebral and cerebellar atrophy and multifocal white matter chronic ischemic changes noted. 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 Skull and face: Calvarium and visualized facial bones are intact, without suspicious lesions. Sinuses: Visualized sinuses and mastoids are clear. IMPRESSION: Atrophy and chronic ischemic change without acute hemorrhage or mass effect. 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 Reviewed by: Dimitri Honeycutt MD on 05/22/2021 9:51 AM [place] Approved by: Dimitri Honeycutt MD on 05/22/2021 9:51 AM [place] Station ID: [id number]
--- NOTE | 2021-05-22 10:55 | CT Report ---
PROCEDURE: Abdomen/Pelvis W INDICATIONS: Abd pain CONTRAST: IV CONTRAST: Optiray 320 ml: 100 PO CONTRAST: *NO PO CONTRAST TECHNIQUE: After the administration of intravenous contrast, 5 mm thick sections acquired from the diaphragms to the symphysis. 5 mm thick coronal and sagittal reformats were acquired. For radiation dose reducti on, the following was used: automated exposure control, adjustment of mA and/or kV according to nura ent size. COMPARISON: None. FINDINGS: Image quality: Excellent. ABDOMEN: Lung bases: Lung bases are clear acute opacities. 4 mm calcified granuloma in the right lung base is stable. Multiple pulmonary masses and nodules noted in the lung bases bilaterally which are not sign ificantly changed in size or contour compared to prior CT scan obtained 04/03/2021. Heart size is norm al. Atherosclerotic calcifications noted in the visualized coronary vasculature. Solid organs: Liver and spleen are normal in size and enhancement. No small cysts in the dome of the right lobe liver is stable compared to prior exam. Punctate calcifications compatible sequela prior granulomatous disease involving the spleen. Gallbladder contains multiple small gallstones. Biliary s ystem is non dilated. Pancreas enhances normally. Right adrenal mass is increased in size compared t measuring 3.1 x 2.4 cm in the current study (2.6 x 2.1 cm there is a). No left adrenal nodu les are masses. Right kidney is surgically absent. Left kidney demonstrates normal postcontrast enhan cement. No hydronephrosis. There is enhancement of the the volume of the left genitourinary collectin g system which is nonspecific finding, but can be associated with urinary tract infection. Peritoneum and bowel: Small hiatal hernia. Bowel loops demonstrate normal wall thickness and caliber. No free fluid or air. Appendix is normal. Nodes and vessels: No retroperitoneal or mesenteric adenopathy by size criteria. Aorta and inferior vena cava are normal in size. Scattered atherosclerotic calcifications are noted in the abdominal an d pelvic vasculature. Miscellaneous: No ventral hernias. PELVIS: Genitourinary: Bladder wall thickness is normal. Partially visualized small scrotal hydroceles. Miscellaneous: No inguinal hernias or adenopathy. Bones: No suspicious bony lesions. No vertebral body compression fractures. Spine degenerative disc disease and facet arthropathy are noted. IMPRESSION: 1. No acute disease process. 2. 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 3. Multiple bibasilar lung bases are not significantly changed compared to 04/03/2021 where visualized . 4. Cholelithiasis. 5. Status post right nephrectomy. Reviewed by: Krystyna Marcus MD, PhD on 05/22/2021 10:54 AM PDT Approved by: Krystyna Marcus MD, PhD on 05/22/2021 10:54 AM PDT Station ID: [id number]
[2021-05-22] MEDS ORDERED: cefTRIAXone 1 GM in SODIUM CHLORIDE 0.9% MINIBAG 100 ML IV STA ×2 (11:10→12:48)
[2021-05-22 11:12] LABS: B. PARAPERTUSSIS- RESP PCR PAN NOT DETECTED; B. PERTUSSIS- RESP PCR PANEL NOT DETECTED; C. PNEUMONIAE- RESP PCR PANEL NOT DETECTED; CORONAVIRUS 229E-RESP PCR NOT DETECTED; CORONAVIRUS HKU1-RESP PCR NOT DETECTED; CORONAVIRUS NL63-RESP PCR NOT DETECTED; CORONAVIRUS OC43-RESP PCR NOT DETECTED; HUMAN METAPNEUMOVIRUS NOT DETECTED; INFLUENZA A- RESP PCR PANEL NOT DETECTED; INFLUENZA B - RESP PCR PANEL NOT DETECTED; M. PNEUMONIAE- RESP PCR PANEL NOT DETECTED; PARAINFLUENZA VIRUS 1 NOT DETECTED; PARAINFLUENZA VIRUS 2 NOT DETECTED; PARAINFLUENZA VIRUS 3 NOT DETECTED; PARAINFLUENZA VIRUS 4 NOT DETECTED; RHINOVIRUS/ENTEROVIRUS NOT DETECTED; RSV- RESP PCR PANEL NOT DETECTED; SARS-CoV-2 -RESP PCR PANEL NOT DETECTED
[2021-05-22 11:48] LABS: VBG BASE EXCESS -4.4 mmol/L (-2 - +2); VBG HCO3 22.9 mmol/L (23-28); VBG OXYGEN SATURATION 23.8 % (60-80); VBG PCO2 51.3 mmHg (41-51); VBG PH 7.268 (7.31-7.41); VBG PO2 19.2 mmHg (25-47); VBG TOTAL CO2 24.5 mmol/L (24-29)
[2021-05-22] MEDS ORDERED: CHLORHEXIDINE GLUCONATE 15 ML UDC PO SCH (12:00)
[2021-05-22] MEDS ORDERED: CHLORHEXIDINE GLUCONATE 15 ML UDC PO STA (12:02)
[2021-05-22 12:03] LABS: MUDS CUTOFF CONCENTRATIONS CUTOFF CONC BELOW:
[2021-05-22 12:04] LABS: BILIRUBIN,URINE NEGATIVE (NEGATIVE); GLUCOSE, URINE (UA) NEGATIVE (NEGATIVE); KETONES,URINE (UA) NEGATIVE (NEGATIVE); LEUKOCYTE ESTERASE, URINE SMALL (NEGATIVE); NITRITE,URINE NEGATIVE (NEGATIVE); OCCULT BLOOD,URINE MODERATE (NEGATIVE); PH,URINE 7.5 PH (5.0-7.5); PROTEIN,URINE 30 mg/dL (NEGATIVE); UROBILINOGEN,URINE 0.2 (NORMAL) E.U./dL (NORMAL)
[2021-05-22 12:05] LABS: CLARITY,URINE HAZY (CLEAR)
[2021-05-22 12:15] LABS: AMPHETAMINE SCREEN,URINE NEGATIVE (NEGATIVE); BARBITURATE SCREEN,UR NEGATIVE (NEGATIVE); BENZODIAZEPINES SCREEN, URINE NEGATIVE (NEGATIVE); COCAINE SCREEN URINE NEGATIVE (NEGATIVE); METHADONE SCREEN, URINE NEGATIVE (NEGATIVE); METHAMPHETAMINES SCREEN, URINE NEGATIVE (NEGATIVE); OPIATE SCREEN, URINE NEGATIVE (NEGATIVE); OXYCODONE SCREEN, URINE NEGATIVE (NEGATIVE); PROPOXYPHENE SCREEN, URINE NEGATIVE (NEGATIVE); THC CANNABINOID SCREEN, URINE NEGATIVE (NEGATIVE); TRICYCLIC ANTIDEPRESSANT,URINE NEGATIVE (NEGATIVE)
[2021-05-22 12:20] LABS: BACTERIA,URINE Few /HPF (None Seen); RBC,URINE 0-5 /HPF (0-5); SQUAMOUS EPITHELIAL CELL,UR NONE SEEN (<= Few); WBC CLUMPS,URINE PRESENT; WBC,URINE >25 /HPF (0-3)
[2021-05-22 14:02] LABS: ABG BASE EXCESS 4.9 mmol/L (-2.0-3.0); ABG HCO3 23.8 mmol/L (22.0-26.0); ABG OXYGEN SATURATION 99 % (94-98); ABG PO2 123 mmHg (80-100); ABG TCO2 24.5 MMOL/L (21.0-29.0); ALLEN TEST POSITIVE
[2021-05-22 14:04] LABS: ABG PCO2 22 mmHg (34-45); ABG PH 7.66 (7.35-7.45); ABG RESPIRATORY RATE 31 b/min
[2021-05-22] MEDS ORDERED: ONDANSETRON 4 MG/2 ML VIAL IVP PRN (14:20)
[2021-05-22] MEDS ORDERED: SODIUM CHLORIDE FLUSH 0.9% 10 ML SYRINGE IVP PRN (14:20)
[2021-05-22] MEDS ORDERED: ACETAMINOPHEN 325 MG TABLET PO PRN (14:20)
--- NOTE | 2021-05-22 14:25 | HISTORY & PHYSICAL EXAMINATION ---
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 He sees Dr. Garrett at the [facility] clinic and is currently on cabozantinib. He was at follow-up visit with Dr. Garrett at the [facility] clinic today 05/22/2021 when he suddenly became unresponsive, appeared ashen and had a blank stare. It appeared he was incontinent of foul-smelling urine as well. As a result he was sent to the ED for evaluation. He was noted to have a lactic acid of 6.2. VBG showed a pH of 7.256, PCO2 53.5. CT brain without contrast showed atrophy and chronic ischemic changes without acute hemorrhage or mass-effect. CT of the abdomen pelvis showed right adrenal metastatic mass which is increased from size when compared to 04/03/2021. Status post right nephrectomy. Cholelithiasis noted as well. No acute disease process noted. For concern about his blood gas he was placed on the BiPAP however he appeared significantly uncomfortable with the BiPAP. His respiratory rate was as high as the mid 30s and he was mildly tachycardic. When the BiPAP was taken off his vitals seem to normalize. He was also given a dose of Rocephin for potential UTI. While in the ED he seemed to become more alert. He was presented for admission for monitoring and possibly obtaining an MRI of the brain. He denied chest pain, dyspnea, abdominal pain, nausea, vomiting, fever or chills History - Past Medical History Cardiovascular: reports: Hypertension, High cholesterol Respiratory: reports: Sleep apnea, Other (new diagnosis of 4 L lung nodules, biopsy pending next week) Endocrine/Autoimmune: reports: Type 2 diabetes GI: reports: None : reports: Other (nephrectomy s/p renal carcinoma 09/2019) HEENT: reports: None Psych: reports: None Musculoskeletal: reports: Osteoarthritis Derm: reports: None MRSA Hx?: No Other Past Medical History: History of prostate cancer and renal cell carcinoma. - Past Surgical History General: reports: Colonoscopy Cardiovascular: reports: CABG (3 vessel CABG 2018), Cardiac catheterization Other past surgical history: Radical prostatectomy in March 2007, radical nephrectomy on October 04, 2019. - Family & Social History Family History Comment/Other: No family history of cancer. Living arrangement: At home Living Situation: With spouse/s.o. Social History Notes: Patient is . He lives at home with his . He was in the [employer] for 28 years with now retired. He has children who live in [place] her. He consumes alcohol moderately. He does not use tobacco products or recreational substances. He has been independent of activities of daily living. - POLST Patient has POLST: No POLST Status: Full Code Meds/Allgy - Home Medications Home Medications: Ambulatory Orders Medication Instructions Recorded Confirmed Glipizide [Glipizide Xl] 5 mg PO DAILY 10/09/14 05/22/21 Sildenafil Citrate [Viagra] 100 mg PO DAILY PRN 10/09/14 05/22/21 Atorvastatin [Lipitor] 40 mg PO DAILY 06/20/20 05/22/21 SITagliptin [Januvia] 100 mg PO DAILY 06/20/20 05/22/21 Aspirin Chewable [St Swapnil 1 tab PO DAILY 09/19/20 05/22/21 Aspirin] ondansetron HCL [Zofran] 4 mg PO Q6HR PRN #30 tab 11/13/20 05/22/21 Cabozantinib S-Malate [Cometriq] 60 mg PO DAILY 04/05/21 05/22/21 Apixaban [Eliquis] 5 mg PO BID 05/22/21 05/22/21 Ciprofloxacin HCl [Cipro] 250 mg PO Q12H 7 Days #14 tablet 05/22/21 05/22/21 Metoprolol Succinate [Toprol Xl] 12.5 mg PO DAILY 05/22/21 05/22/21 lisinopriL [Zestril] 5 mg PO DAILY 05/22/21 05/22/21 - Allergies Allergies/Adverse Reactions: Allergies Allergy/AdvReac Type Severity Reaction Status Date / Time No Known Drug Allergies Allergy Verified 05/22/21 09:53 Review of Systems - Constitutional Constitutional: reports: Chills. denies: Fatigue, Fever, Weakness, Poor appetite - Eyes Eyes: denies: Pain, Field loss, Vision loss - Ears, Nose & Throat Ears, Nose & Throat: denies: Ear pain, Vertigo, Sore throat - Cardiovascular Cariovascular: denies: Irregular heart rate, Chest pain, Edema, Lightheadedness, Syncope - Respiratory Respiratory: denies: Cough, Sputum production, Wheezing, SOB at rest, SOB with exertion - Gastrointestinal Gastrointestinal: denies: Abdominal pain, Abdominal distention, Constipation, Nausea, Vomiting - Genitourinary Genitourinary: denies: Dysuria, Frequency, Urgency, Hematuria - Musculoskeletal Musculoskeletal: denies: Muscle pain, Back pain, Muscle aches - Integumentary Integumentary: denies: Rash, Pruritis - Neurological Neurological: reports: General weakness. denies: Headache, Dizziness - Psychiatric Psychiatric: denies: Depression, Anxiety - Endocrine Endocrine: denies: Polyuria, Polydypsia - Hematologic/Lymphatic Hematologic/Lymphatic: denies: Anemia, Bruising, Petechiae Prior Level of Functionality: He is normally independent of activities of daily living. Exam - Vital Signs Vital Signs: Vital Signs x48h Temp Pulse Resp BP Pulse Ox 05/22/21 14:00 95 17 110/99 H 99 05/22/21 13:30 36.0 C L 101 H 35 H 106/90 H 100 05/22/21 13:00 90 20 107/82 H 98 05/22/21 12:30 93 10 L 95/81 H 100 05/22/21 12:22 88 05/22/21 12:00 85 18 100/71 100 05/22/21 11:30 89 15 113/76 100 05/22/21 11:00 94 22 113/73 100 05/22/21 10:39 94 20 95/66 100 05/22/21 10:03 35.8 C L 108 H 22 95/82 H 98 05/22/21 09:49 34.4 C L 111 H 23 95/82 H 100 - Physical Exam General Appearance: positive: No acute distress, Alert, Mild distress Eyes Bilateral: positive: PERRL, EOMI ENT: positive: Dry mucous membranes Neck: positive: No JVD, Trachea midline Respiratory: positive: Chest non-tender, No respiratory distress, Breath sounds nml. negative: Wheezes, Rales, Rhonchi Cardiovascular: positive: No murmur, Tachycardia Abdomen: positive: Non-tender, No organomegaly, Nml bowel sounds, No distention. negative: Guarding, Rebound Back: positive: Nml inspection Skin: positive: No rash, Warm, Dry Extremities: positive: Non-tender, Full ROM, Nml appearance, No pedal edema Neurologic/Psychiatric: positive: Oriented x3, Mood/affect nml Conclusion/Plan - Problem List (1) Encephalopathy acute Conclusion/Plan: Etiology undetermined. However given patient's elevated lactic acid of 6.3 which resolved in a short period of time down to 2.1 and Urinary incontinence Seizure is suspected. Patient is admitted for closer monitoring overnight. We will obtain an MRI of the brain with and without contrast to rule out possible metastasis to the brain. (2) Renal cell carcinoma Conclusion/Plan: With metastasis to the lungs. Patient was seen by Dr. Garrett at the [facility] clinic on 05/22/2021. Cabozantinib 60 mg p.o. held on 05/22/2021. Next restaging scan is due on 07/07. Patient will be reassessed in 2 weeks and decision will be made about changes to his chemotherapy. CT of the abdomen/pelvis done today showed that there was an increase in the right adrenal mass when compared to imaging done on 04/03/2021. (3) Chronic pulmonary embolism Conclusion/Plan: We will continue patient's Eliquis. Oxygen saturation is 100% on room air. Patient does not appear to be in any respiratory distress. - Lab Results Fish Bones: 05/23/21 05:05 05/23/21 05:05 Core Measures - Anticipated LOS I expect patient to be DC'd or transferred within 96 hours.: Yes - DVT/VTE - Prophylaxis VTE/DVT Prophylaxis med ordered at admit?: Yes
--- NOTE | 2021-05-22 15:10 | ED Physician Documentation ---
PD HPI ALTERED MENTAL STATUS - Stated complaint Stated Complaint: AMS - Chief complaint Chief Complaint: Neuro - Additional information Additional information: Patient is 75-year-old male with past medical significant for metastatic renal cell carcinoma, and chronic DVTs presenting to the emergency department with acute altered mentation. Accompanied by and son who are present at bedside. They report that otherwise the patient was himself until earlier this morning when he became acutely altered well at a medical appointment. They deny any focal or lateralizing neurologic symptoms but simply stated that he became confused and minimally conversant. They state that this is atypical for him. Review of Systems Unable to obtain: Unresponsive PD PAST MEDICAL HISTORY - Past Medical History Cardiovascular: Hypertension, High cholesterol Respiratory: Sleep apnea, Other (new diagnosis of 4 L lung nodules, biopsy pending next week) Endocrine/Autoimmune: Type 2 diabetes GI: None : Other (nephrectomy s/p renal carcinoma 09/2019) HEENT: None Psych: None Musculoskeletal: Osteoarthritis Derm: None - Past Surgical History General: Colonoscopy Cardiovascular: CABG (3 vessel CABG 2018), Cardiac catheterization - Present Medications Home Medications: Ambulatory Orders Medication Instructions Recorded Confirmed Glipizide [Glipizide Xl] 5 mg PO DAILY 10/09/14 05/22/21 Sildenafil Citrate [Viagra] 100 mg PO DAILY PRN 10/09/14 05/22/21 Atorvastatin [Lipitor] 40 mg PO DAILY 06/20/20 05/22/21 SITagliptin [Januvia] 100 mg PO DAILY 06/20/20 05/22/21 Aspirin Chewable [St Swapnil 1 tab PO DAILY 09/19/20 05/22/21 Aspirin] ondansetron HCL [Zofran] 4 mg PO Q6HR PRN #30 tab 11/13/20 05/22/21 Cabozantinib S-Malate [Cometriq] 60 mg PO DAILY 04/05/21 05/22/21 Apixaban [Eliquis] 5 mg PO BID 05/22/21 05/22/21 Ciprofloxacin HCl [Cipro] 250 mg PO Q12H 7 Days #14 tablet 05/22/21 05/22/21 Metoprolol Succinate [Toprol Xl] 12.5 mg PO DAILY 05/22/21 05/22/21 lisinopriL [Zestril] 5 mg PO DAILY 05/22/21 05/22/21 - Allergies Allergies/Adverse Reactions: Allergies Allergy/AdvReac Type Severity Reaction Status Date / Time No Known Drug Allergies Allergy Verified 05/22/21 09:53 - Social History Smoking Status: Never smoker PD ED PE NORMAL - General General: No acute distress. No: Alert and oriented X 3 - HEENT HEENT: Atraumatic, PERRL, EOMI, Ears normal - Neck Neck: Supple, no meningeal sign, No bony TTP, No adenopathy - Cardiac Cardiac: RRR, No gallop - Respiratory Respiratory: No respiratory distress, Clear bilaterally - Abdomen Abdomen: Normal bowel sounds - Male Male : Deferred - Rectal Rectal: Deferred - Derm Derm: Other (Patient appears ashen and pale) - Extremities Extremities: No deformity - Neuro Neuro: diamond die maker 2-12 intact, No motor deficit, No sensory deficit, Other Results - Vitals Vitals: Vital Signs - 24 hr 05/22/21 05/22/21 05/22/21 09:49 10:03 10:39 Temperature 34.4 C L 35.8 C L Heart Rate 111 H 108 H 94 Respiratory 23 22 20 Rate Blood Pressure 95/82 H 95/82 H 95/66 O2 Saturation 100 98 100 05/22/21 05/22/21 05/22/21 11:00 11:30 12:00 Temperature Heart Rate 94 89 85 Respiratory 22 15 18 Rate Blood Pressure 113/73 113/76 100/71 O2 Saturation 100 100 100 05/22/21 05/22/21 05/22/21 12:22 12:30 13:00 Temperature Heart Rate 88 93 90 Respiratory 10 L 20 Rate Blood Pressure 95/81 H 107/82 H O2 Saturation 100 98 05/22/21 05/22/21 13:30 14:00 Temperature 36.0 C L Heart Rate 101 H 95 Respiratory 35 H 17 Rate Blood Pressure 106/90 H 110/99 H O2 Saturation 100 99 Oxygen O2 Source Room air - EKG (time done) 0954 Rate: Rate (enter#) (108) Rhythm: NSR [place]: Normal Intervals: Normal VT. No: Prolonged QT, QRS normal QRS: Normal Ischemia: Normal ST segments. No: Hyperacute T waves, T wave inversion Other comments: Other comments (Significant motion artifact throughout) - Labs Labs: Laboratory Tests 05/22/21 05/22/21 05/22/21 09:52 09:55 09:55 WBC 6.5 RBC 5.88 Hgb 14.6 Hct 47.7 MCV 81.1 MCH 24.8 L MCHC 30.6 L RDW 20.7 H Plt Count 283 MPV 8.7 Neut # (Auto) 3.9 Lymph # (Auto) 2.0 Perry # (Auto) 0.4 Eos # (Auto) 0.1 Baso # (Auto) 0.1 Absolute Nucleated RBC 0.00 Nucleated RBC % 0.0 PT INR Bld Gas Analysis Time Sample Site ABG pH ABG pCO2 ABG pO2 ABG HCO3 ABG Total CO2 ABG O2 Saturation ABG Base Excess Iglesia Test VBG pH VBG pCO2 VBG pO2 VBG HCO3 VBG Total CO2 VBG O2 Saturation VBG Base Excess Respiration Rate O2 Delivery Device Vent Mode FiO2 Pressure Support Vent EPAP Sodium 133 L Potassium 3.8 Chloride 92 L Carbon Dioxide 25 Anion Gap 16.0 H BUN 17 Creatinine 1.6 H Estimated GFR (MDRD) 42 L Glucose 225 H POC Whole Bld Glucose 223 H Lactic Acid Calcium 8.7 Total Bilirubin 0.6 AST 34 ALT 29 Alkaline Phosphatase 97 Total Creatine Kinase 53 B-Natriuretic Peptide Total Protein 7.6 Albumin 2.6 L Globulin 5.0 H Albumin/Globulin Ratio 0.5 L Lipase 91 H TSH Urine Color Urine Clarity Urine pH Ur Specific Leopold Urine Protein Urine Glucose (UA) Urine Ketones Urine Occult Blood Urine Nitrite Urine Bilirubin Urine Urobilinogen Ur Leukocyte Esterase Urine RBC Urine WBC Urine WBC Clumps Ur Squamous Epith Cells Urine Bacteria Ur Microscopic Review Urine Culture Comments Nasal Adenovirus (PCR) Nasal B. parapertussis DNA (PCR) Nasal Coronavir 229E PCR Nasal Coronavir HKU1 PCR Nasal Coronavir NL63 PCR Nasal Coronavir OC43 PCR Nasal Enterovir/Rhinovir PCR Nasal Influenza B PCR Nasal Influenza A PCR Nasal Parainfluen 1 PCR Nasal Parainfluen 2 PCR Nasal Parainfluen 3 PCR Nasal Parainfluen 4 PCR Nasal RSV (PCR) Nasal B.pertussis DNA PCR Nasal C.pneumoniae (PCR) Chon Human Metapneumo PCR Nasal M.pneumoniae (PCR) Nasal SARS-CoV-2 (PCR) Urine Opiates Screen Ur Oxycodone Screen Urine Methadone Screen Ur Propoxyphene Screen Ur Barbiturates Screen Ur Tricyclics Screen Ur Phencyclidine Scrn Ur Amphetamine Screen U Methamphetamines Scrn U Benzodiazepines Scrn Urine Cocaine Screen U Cannabinoids Screen Ethyl Alcohol < 5.0 05/22/21 05/22/21 05/22/21 09:55 09:55 09:58 WBC RBC Hgb Hct MCV MCH MCHC RDW Plt Count MPV Neut # (Auto) Lymph # (Auto) Perry # (Auto) Eos # (Auto) Baso # (Auto) Absolute Nucleated RBC Nucleated RBC % PT INR Bld Gas Analysis Time Sample Site ABG pH ABG pCO2 ABG pO2 ABG HCO3 ABG Total CO2 ABG O2 Saturation ABG Base Excess Iglesia Test VBG pH 7.256 L VBG pCO2 53.5 H VBG pO2 22.0 L VBG HCO3 23.3 VBG Total CO2 24.9 VBG O2 Saturation 27.0 L VBG Base Excess -4.5 L Respiration Rate O2 Delivery Device Vent Mode FiO2 Pressure Support Vent EPAP Sodium Potassium Chloride Carbon Dioxide Anion Gap BUN Creatinine Estimated GFR (MDRD) Glucose POC Whole Bld Glucose Lactic Acid 6.2 H* Calcium Total Bilirubin AST ALT Alkaline Phosphatase Total Creatine Kinase B-Natriuretic Peptide Total Protein Albumin Globulin Albumin/Globulin Ratio Lipase TSH Urine Color Urine Clarity Urine pH Ur Specific Leopold Urine Protein Urine Glucose (UA) Urine Ketones Urine Occult Blood Urine Nitrite Urine Bilirubin Urine Urobilinogen Ur Leukocyte Esterase Urine RBC Urine WBC Urine WBC Clumps Ur Squamous Epith Cells Urine Bacteria Ur Microscopic Review Urine Culture Comments Nasal Adenovirus (PCR) NOT DETECTED Nasal B. parapertussis DNA (PCR) NOT DETECTED Nasal Coronavir 229E PCR NOT DETECTED Nasal Coronavir HKU1 PCR NOT DETECTED Nasal Coronavir NL63 PCR NOT DETECTED Nasal Coronavir OC43 PCR NOT DETECTED Nasal Enterovir/Rhinovir PCR NOT DETECTED Nasal Influenza B PCR NOT DETECTED Nasal Influenza A PCR NOT DETECTED Nasal Parainfluen 1 PCR NOT DETECTED Nasal Parainfluen 2 PCR NOT DETECTED Nasal Parainfluen 3 PCR NOT DETECTED Nasal Parainfluen 4 PCR NOT DETECTED Nasal RSV (PCR) NOT DETECTED Nasal B.pertussis DNA PCR NOT DETECTED Nasal C.pneumoniae (PCR) NOT DETECTED Chon Human Metapneumo PCR NOT DETECTED Nasal M.pneumoniae (PCR) NOT DETECTED Nasal SARS-CoV-2 (PCR) NOT DETECTED Urine Opiates Screen Ur Oxycodone Screen Urine Methadone Screen Ur Propoxyphene Screen Ur Barbiturates Screen Ur Tricyclics Screen Ur Phencyclidine Scrn Ur Amphetamine Screen U Methamphetamines Scrn U Benzodiazepines Scrn Urine Cocaine Screen U Cannabinoids Screen Ethyl Alcohol 04/06/22 04/06/22 04/06/22 10:05 10:05 10:43 WBC RBC Hgb Hct MCV MCH MCHC RDW Plt Count MPV Neut # (Auto) Lymph # (Auto) Perry # (Auto) Eos # (Auto) Baso # (Auto) Absolute Nucleated RBC Nucleated RBC % PT 15.0 H INR 1.3 H Bld Gas Analysis Time Sample Site ABG pH ABG pCO2 ABG pO2 ABG HCO3 ABG Total CO2 ABG O2 Saturation ABG Base Excess Iglesia Test VBG pH VBG pCO2 VBG pO2 VBG HCO3 VBG Total CO2 VBG O2 Saturation VBG Base Excess Respiration Rate O2 Delivery Device Vent Mode FiO2 Pressure Support Vent EPAP Sodium Potassium Chloride Carbon Dioxide Anion Gap BUN Creatinine Estimated GFR (MDRD) Glucose POC Whole Bld Glucose Lactic Acid Calcium Total Bilirubin AST ALT Alkaline Phosphatase Total Creatine Kinase B-Natriuretic Peptide 49 Total Protein Albumin Globulin Albumin/Globulin Ratio Lipase TSH 10.03 H Urine Color Urine Clarity Urine pH Ur Specific Leopold Urine Protein Urine Glucose (UA) Urine Ketones Urine Occult Blood Urine Nitrite Urine Bilirubin Urine Urobilinogen Ur Leukocyte Esterase Urine RBC Urine WBC Urine WBC Clumps Ur Squamous Epith Cells Urine Bacteria Ur Microscopic Review Urine Culture Comments Nasal Adenovirus (PCR) Nasal B. parapertussis DNA (PCR) Nasal Coronavir 229E PCR Nasal Coronavir HKU1 PCR Nasal Coronavir NL63 PCR Nasal Coronavir OC43 PCR Nasal Enterovir/Rhinovir PCR Nasal Influenza B PCR Nasal Influenza A PCR Nasal Parainfluen 1 PCR Nasal Parainfluen 2 PCR Nasal Parainfluen 3 PCR Nasal Parainfluen 4 PCR Nasal RSV (PCR) Nasal B.pertussis DNA PCR Nasal C.pneumoniae (PCR) Chon Human Metapneumo PCR Nasal M.pneumoniae (PCR) Nasal SARS-CoV-2 (PCR) Urine Opiates Screen Ur Oxycodone Screen Urine Methadone Screen Ur Propoxyphene Screen Ur Barbiturates Screen Ur Tricyclics Screen Ur Phencyclidine Scrn Ur Amphetamine Screen U Methamphetamines Scrn U Benzodiazepines Scrn Urine Cocaine Screen U Cannabinoids Screen Ethyl Alcohol 05/22/21 05/22/21 05/22/21 11:29 11:34 13:12 WBC RBC Hgb Hct MCV MCH MCHC RDW Plt Count MPV Neut # (Auto) Lymph # (Auto) Perry # (Auto) Eos # (Auto) Baso # (Auto) Absolute Nucleated RBC Nucleated RBC % PT INR Bld Gas Analysis Time Sample Site ABG pH ABG pCO2 ABG pO2 ABG HCO3 ABG Total CO2 ABG O2 Saturation ABG Base Excess Iglesia Test VBG pH 7.268 L VBG pCO2 51.3 H VBG pO2 19.2 L VBG HCO3 22.9 L VBG Total CO2 24.5 VBG O2 Saturation 23.8 L VBG Base Excess -4.4 L Respiration Rate O2 Delivery Device Vent Mode FiO2 Pressure Support Vent EPAP Sodium Potassium Chloride Carbon Dioxide Anion Gap BUN Creatinine Estimated GFR (MDRD) Glucose POC Whole Bld Glucose Lactic Acid 2.1 Calcium Total Bilirubin AST ALT Alkaline Phosphatase Total Creatine Kinase B-Natriuretic Peptide Total Protein Albumin Globulin Albumin/Globulin Ratio Lipase TSH Urine Color YELLOW Urine Clarity HAZY Urine pH 7.5 Ur Specific Leopold 1.010 Urine Protein 30 H Urine Glucose (UA) NEGATIVE Urine Ketones NEGATIVE Urine Occult Blood MODERATE H Urine Nitrite NEGATIVE Urine Bilirubin NEGATIVE Urine Urobilinogen 0.2 (NORMAL) Ur Leukocyte Esterase SMALL H Urine RBC 0-5 Urine WBC >25 H Urine WBC Clumps PRESENT Ur Squamous Epith Cells NONE SEEN Urine Bacteria Few Ur Microscopic Review INDICATED Urine Culture Comments INDICATED Nasal Adenovirus (PCR) Nasal B. parapertussis DNA (PCR) Nasal Coronavir 229E PCR Nasal Coronavir HKU1 PCR Nasal Coronavir NL63 PCR Nasal Coronavir OC43 PCR Nasal Enterovir/Rhinovir PCR Nasal Influenza B PCR Nasal Influenza A PCR Nasal Parainfluen 1 PCR Nasal Parainfluen 2 PCR Nasal Parainfluen 3 PCR Nasal Parainfluen 4 PCR Nasal RSV (PCR) Nasal B.pertussis DNA PCR Nasal C.pneumoniae (PCR) Chon Human Metapneumo PCR Nasal M.pneumoniae (PCR) Nasal SARS-CoV-2 (PCR) Urine Opiates Screen NEGATIVE Ur Oxycodone Screen NEGATIVE Urine Methadone Screen NEGATIVE Ur Propoxyphene Screen NEGATIVE Ur Barbiturates Screen NEGATIVE Ur Tricyclics Screen NEGATIVE Ur Phencyclidine Scrn NEGATIVE Ur Amphetamine Screen NEGATIVE U Methamphetamines Scrn NEGATIVE U Benzodiazepines Scrn NEGATIVE Urine Cocaine Screen NEGATIVE U Cannabinoids Screen NEGATIVE Ethyl Alcohol 05/22/21 13:50 WBC RBC Hgb Hct MCV MCH MCHC RDW Plt Count MPV Neut # (Auto) Lymph # (Auto) Perry # (Auto) Eos # (Auto) Baso # (Auto) Absolute Nucleated RBC Nucleated RBC % PT INR Bld Gas Analysis Time 1350 Sample Site LEFT RADIAL ABG pH 7.66 H* ABG pCO2 22 L* ABG pO2 123 H ABG HCO3 23.8 ABG Total CO2 24.5 ABG O2 Saturation 99 H ABG Base Excess 4.9 H Iglesia Test POSITIVE VBG pH VBG pCO2 VBG pO2 VBG HCO3 VBG Total CO2 VBG O2 Saturation VBG Base Excess Respiration Rate 31 O2 Delivery Device BiPAP Vent Mode S PORT FiO2 35.00 Pressure Support Vent 10 EPAP 5 Sodium Potassium Chloride Carbon Dioxide Anion Gap BUN Creatinine Estimated GFR (MDRD) Glucose POC Whole Bld Glucose Lactic Acid Calcium Total Bilirubin AST ALT Alkaline Phosphatase Total Creatine Kinase B-Natriuretic Peptide Total Protein Albumin Globulin Albumin/Globulin Ratio Lipase TSH Urine Color Urine Clarity Urine pH Ur Specific Leopold Urine Protein Urine Glucose (UA) Urine Ketones Urine Occult Blood Urine Nitrite Urine Bilirubin Urine Urobilinogen Ur Leukocyte Esterase Urine RBC Urine WBC Urine WBC Clumps Ur Squamous Epith Cells Urine Bacteria Ur Microscopic Review Urine Culture Comments Nasal Adenovirus (PCR) Nasal B. parapertussis DNA (PCR) Nasal Coronavir 229E PCR Nasal Coronavir HKU1 PCR Nasal Coronavir NL63 PCR Nasal Coronavir OC43 PCR Nasal Enterovir/Rhinovir PCR Nasal Influenza B PCR Nasal Influenza A PCR Nasal Parainfluen 1 PCR Nasal Parainfluen 2 PCR Nasal Parainfluen 3 PCR Nasal Parainfluen 4 PCR Nasal RSV (PCR) Nasal B.pertussis DNA PCR Nasal C.pneumoniae (PCR) Chon Human Metapneumo PCR Nasal M.pneumoniae (PCR) Nasal SARS-CoV-2 (PCR) Urine Opiates Screen Ur Oxycodone Screen Urine Methadone Screen Ur Propoxyphene Screen Ur Barbiturates Screen Ur Tricyclics Screen Ur Phencyclidine Scrn Ur Amphetamine Screen U Methamphetamines Scrn U Benzodiazepines Scrn Urine Cocaine Screen U Cannabinoids Screen Ethyl Alcohol PD MEDICAL DECISION MAKING - ED course Complexity details: reviewed results, d/w patient ED course: Patient is 75-year-old male presenting to the emergency department with acute onset confusion in setting of known's clear-cell renal cell carcinoma with metastatic disease to lungs and chronic bilateral pulmonary emboli. Afebrile, hemodynamic stable arrival to the emergency department. Patient was confused and disorientated but was arousable, moves all extremities spontaneously and had a nonfocal nonlateralizing neurologic exam. Head CT was nonacute. He did have some suprapubic tenderness and he was at his physician's office being evaluated for possible urinary tract infection. I did order a CT of his abdomen and pelvis which was negative for any acute or life-threatening intra-abdominal or pelvic emergency. His lab work overall was reassuring with the exception of a blood gas which demonstrated a hypercapnic respiratory failure with acidosis. This was confirmed on repeat gas and he was briefly started on BiPAP. I did discuss his care with the hospitalist service who evaluated him independently in the emergency department. In consultation with the hospital service BiPAP was discontinued. A blood gas drawn shortly after that did demonstrate a developing alkalosis due to hypocapnia. Graciously he has been accepted by the hospitalist service. At this time he will be hospitalized for further evaluation and treatment. Departure - Departure Disposition: ED Place in Observation Clinical Impression: Encephalopathy acute, Hypercapnic respiratory failure, Renal cell carcinoma, Chronic pulmonary embolism Discharge Date/Time: 05/22/21 15:39
[2021-05-22] MEDS: SODIUM CHLORIDE 0.9% 1,000 ML IV SCH (16:01)
--- NOTE | 2021-05-22 16:24 | PHARMACY PROGRESS NOTE ---
- Best Possible Medication History Admit Date and Time: 05/22/21 1420 Processed by: Pharmacy Medication History completed: Yes Secondary Source(s): Physician records, Insurance records, Previous admit records Medication list updated using recent notes from the [facility] [place] [facility] clinic and PCP Kamilla Quintana along with insurance information. [facility] visit on 05/[address] Garrett instructs patient to hold cabozantinib therapy for now. Ciprofloxacin was prescribed at that 05/22 visit for presumed UTI. As the person ultimately responsible for medication therapy, providers are able to order a medication from an existing home medication list in [facility] via the "Reconcile Routine" prior to Confirmation of that medication by help desk support. Such practice is discouraged except when the physician, in their clinical judgment, deems that a medical need exists for a medication without regard to p revious use.
[2021-05-22] MEDS: INSULIN ASPART 300 UNIT/3 ML PEN SUBQ SCH ×2 (16:49→21:12)
[2021-05-22] MEDS: SODIUM CHLORIDE FLUSH 0.9% 10 ML SYRINGE IVP SCH (16:49)
[2021-05-22] MEDS: APIXABAN 5 MG TABLET PO SCH (21:12)
[2021-05-22] MEDS: ATORVASTATIN 40 MG TABLET PO SCH (21:12)
[2021-05-22] MEDS: polyethylene glycoL 3350 17 GM PACKET PO SCH (21:13)
[2021-05-23] MEDS: SODIUM CHLORIDE 0.9% 1,000 ML IV SCH ×3 (02:26→20:42)
[2021-05-23] MEDS: SODIUM CHLORIDE FLUSH 0.9% 10 ML SYRINGE IVP SCH ×3 (03:28→17:32)
[2021-05-23 06:00] LABS: BASOPHILS % (AUTO) 0.9 %; EOSINOPHILS # (AUTO) 0.1 10^3/uL (0.0-0.7); EOSINOPHILS % (AUTO) 2.2 %; HCT - HEMATOCRIT 35.8 % (42.0-52.0); HGB - HEMOGLOBIN 11.1 g/dL (14.0-18.0); LYMPHOCYTES # (AUTO) 1.6 10^3/uL (1.5-3.5); LYMPHOCYTES % (AUTO) 33.6 %; MEAN CORPUSCULAR HEMOGLOBIN 24.9 pg (27.0-31.0); MEAN CORPUSCULAR VOLUME 80.3 fL (80.0-94.0); MEAN PLATELET VOLUME 8.1 fL (7.4-11.4); MONOCYTES # (AUTO) 0.4 10^3/uL (0.0-1.0); NEUTROPHILS # (AUTO) 2.5 10^3/uL (1.5-6.6); NEUTROPHILS % (AUTO) 55.1 %; PLT - PLATELET COUNT 159 10^3/uL (130-450); RED BLOOD COUNT 4.46 10^6/uL (4.70-6.10); WHITE BLOOD COUNT 4.6 x10^3/uL (4.8-10.8)
[2021-05-23 06:06] LABS: CALCIUM 7.9 mg/dL (8.5-10.3); CREATININE 0.9 mg/dL (0.6-1.2); POTASSIUM 3.6 mmol/L (3.5-5.0)
--- NOTE | 2021-05-23 08:33 | PROVIDER PROGRESS NOTE ---
Assessment/Plan - Problem List (1) Encephalopathy acute Assessment/Plan: Etiology undetermined, but suspected to be secondary to seizure Patient is currently back to baseline. He is alert and oriented x4. MRI of the brain pending. (2) Renal cell carcinoma Assessment/Plan: 05/23/21 We will check random cortisol and 3 AM cortisol level. If no we will prescribe prednisone 10 mg p.o. daily. Patient will need to follow-up with Dr. Garrett in the outpatient setting. He was seen by palliative care today. 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 Patient was seen by Dr. Garrett at the [facility] [place] on 05/22/2021. Cabozantinib 60 mg p.o. held on 05/22/2021. Next restaging scan is due on 07/07. Patient will be reassessed in 2 weeks and decision will be made about changes to his chemotherapy. CT of the abdomen/pelvis done today showed that there was an increase in the right adrenal mass when compared to imaging done on 04/03/2021. (3) Chronic pulmonary embolism Assessment/Plan: Conclusion/Plan: We will continue patient's Eliquis. Oxygen saturation is 100% on room air. Patient does not appear to be in any respiratory distress. (4) Generalized weakness Assessment/Plan: It is reported that patient has steadily been declining over the past months. He was seen by physical therapy and occupational therapy today. Recommendations are for home health with PT/OT. Will also prescribed a walker upon discharge. (5) Diabetes mellitus Qualifiers: Diabetes mellitus type: type 2 Assessment/Plan: Glipizide and Januvia held. Sliding scale insulin. Accu-Cheks before every meal and at bedtime. Hemoglobin A1c was 8.1. - Current Meds Current Meds: Current Medications Generic Name Dose Route Start Last Admin Trade Name Freq PRN Reason Stop Dose Admin Apixaban 5 mg 05/22/21 21:00 05/22/21 21:12 Apixaban 5 Mg Tablet PO 5 mg BID LISSETH Administration Atorvastatin Calcium 40 mg 05/22/21 21:00 05/22/21 21:12 Atorvastatin 40 Mg Tablet PO 40 mg QPM LISSETH Administration Sodium Chloride 1,000 mls @ 100 mls/hr 05/22/21 15:00 05/23/21 02:26 Normal Saline 0.9% IV 100 mls/hr .Q10H LISSETH Administration Insulin Aspart 1 - 5 unit 05/22/21 17:00 05/22/21 21:12 Insulin Aspart 300 Unit/3 Ml Pen SUBQ Not Given 0800,1200,1700,2100 [facility] Protocol Polyethylene Glycol 17 gm 05/22/21 21:00 05/22/21 21:13 Polyethylene Glycol 3350 17 Gm Packet PO 17 gm DAILY LISSETH Administration Sodium Chloride 10 ml 05/22/21 14:20 05/22/21 16:08 Sodium Chloride Flush 0.9% 10 Ml Syringe IVP 10 ml PRN PRN Administration NEEDED PER PROVIDER ORDERS Sodium Chloride 10 ml 05/22/21 17:00 05/23/21 03:28 Sodium Chloride Flush 0.9% 10 Ml Syringe IVP Not Given 0100,0900,1700 LISSETH - Lab Result Fish Bone Diagrams: 05/23/21 05:05 05/23/21 05:05 - Additional Planning My Orders: My Active Orders 05/22/21 14:20 Activity Orders [RC] Q2HR IO [RC] IOSHIFT Incentive Spirometry - RT [RC] .TID Initiate Bowel Care Protocol [RC] .protocol Initiate Line Care Protocol [RC] QSHIFT Initiate Personal Care Protoco [RC] .protocol Oxygen Therapy [RC] .PRN Telemetry- [RC] Q4HR Vital Signs [RC] 0800,1600,0000 Acetaminophen [Tylenol] 650 mg PO Q4HR PRN Ondansetron Inj [Zofran Inj] 4 mg IVP Q6HR PRN Sodium Chloride Flush 0.9% [Normal Saline Flush 0.9%] 10 ml IVP PRN PRN Code Status [OTHERS] Routine Condition of Patient [OTHERS] Routine DVT Prophylaxis [OTHERS] Routine 05/22/21 15:00 Sodium Chloride 0.9% [Normal Saline 0.9%] 1,000 ml IV 100 mls/hr 05/22/21 16:06 Blood Glucose Checks - Eating [RC] 0800,1200,1700,2100 Initiate Hypoglycemia Protocol [RC] .protocol 05/22/21 17:00 Insulin Aspart [NovoLOG] 1 - 5 unit SUBQ 0800,1200,1700,2100 Sodium Chloride Flush 0.9% [Normal Saline Flush 0.9%] 10 ml IVP 0100,0900,1700 05/22/21 21:00 Apixaban [Eliquis] 5 mg PO BID Atorvastatin [Lipitor] 40 mg PO QPM polyethylene glycoL 3350 [Miralax] 17 gm PO DAILY 05/23/21 05:05 HEMOGLOBIN A1c% [CHEM] DAILYLAB 05/23/21 08:30 Palliative Care Referral [RC] ONCE 05/23/21 09:00 Metoprolol Succinate [Toprol Xl] 12.5 mg PO DAILY Zinc Oxide 20% Oint [Zinc Oxide] 1 applic TOP BID 05/23/21 09:22 BRAIN W/WO [MRI] Routine 05/24/21 05:00 BMP - BASIC METABOLIC PANEL [CHEM] DAILYLAB CBC - COMP BLD CT W/AUTO DIFF [HEME] DAILYLAB 05/25/21 05:00 BMP - BASIC METABOLIC PANEL [CHEM] DAILYLAB CBC - COMP BLD CT W/AUTO DIFF [HEME] DAILYLAB 05/26/21 05:00 BMP - BASIC METABOLIC PANEL [CHEM] DAILYLAB CBC - COMP BLD CT W/AUTO DIFF [HEME] DAILYLAB 05/27/21 05:00 BMP - BASIC METABOLIC PANEL [CHEM] DAILYLAB CBC - COMP BLD CT W/AUTO DIFF [HEME] DAILYLAB Subjective - Subjective Patient Reports: Other (Resting comfortably in bed. Family was at bedside. Patient appears weak. Reports little sleep. Denies any other complaints.) Objective Vital Signs: Vital Signs - 24 hr 05/22/21 05/22/21 05/22/21 09:49 10:03 10:39 Temperature 34.4 C L 35.8 C L Heart Rate 111 H 108 H 94 Heart Rate [ Apical] Heart Rate [ Brachial] Respiratory 23 22 20 Rate Blood Pressure 95/82 H 95/82 H 95/66 Blood Pressure [Left Brachial artery] Blood Pressure [Right Brachial artery] O2 Saturation 100 98 100 05/22/21 05/22/21 05/22/21 11:00 11:30 12:00 Temperature Heart Rate 94 89 85 Heart Rate [ Apical] Heart Rate [ Brachial] Respiratory 22 15 18 Rate Blood Pressure 113/73 113/76 100/71 Blood Pressure [Left Brachial artery] Blood Pressure [Right Brachial artery] O2 Saturation 100 100 100 05/22/21 05/22/21 05/22/21 12:22 12:30 13:00 Temperature Heart Rate 88 93 90 Heart Rate [ Apical] Heart Rate [ Brachial] Respiratory 10 L 20 Rate Blood Pressure 95/81 H 107/82 H Blood Pressure [Left Brachial artery] Blood Pressure [Right Brachial artery] O2 Saturation 100 98 05/22/21 05/22/21 05/22/21 13:30 14:00 14:30 Temperature 36.0 C L Heart Rate 101 H 95 88 Heart Rate [ Apical] Heart Rate [ Brachial] Respiratory 35 H 17 18 Rate Blood Pressure 106/90 H 110/99 H 110/81 H Blood Pressure [Left Brachial artery] Blood Pressure [Right Brachial artery] O2 Saturation 100 99 100 05/22/21 05/22/21 05/22/21 15:00 15:51 20:23 Temperature 36.3 C L 36.5 C Heart Rate 92 Heart Rate [ 86 Apical] Heart Rate [ 83 Brachial] Respiratory 16 20 14 Rate Blood Pressure 108/84 H Blood Pressure 112/69 [Left Brachial artery] Blood Pressure 101/65 [Right Brachial artery] O2 Saturation 100 96 98 05/23/21 05/23/21 05/23/21 00:20 04:12 07:29 Temperature 36.7 C 36.7 C 36.3 C L Heart Rate 74 Heart Rate [ Apical] Heart Rate [ 74 70 Brachial] Respiratory 18 18 16 Rate Blood Pressure Blood Pressure [Left Brachial artery] Blood Pressure 120/71 104/66 [Right Brachial artery] O2 Saturation 96 96 96 Oxygen O2 Source Room air I&O (Last 24 Hrs): Intake and Output Totals x24h 05/21/21 05/22/21 05/23/21 23:59 23:59 23:59 Intake Total 1870 910 Balance 1870 910 General: Alert, Oriented x3, No acute distress HEENT: Atraumatic, EOMI Neck: Supple, No JVD Neuro: Alert, Oriented Times 3 Cardiovascular: Regular rate, Normal S1, Normal S2 Respiratory: Chest non-tender, No respiratory distress, Breath sounds nml Abdomen: Normal bowel sounds, Soft Extremities: No clubbing, No cyanosis, No edema - Results Results: Laboratory Results WBC 4.6 x10^3/uL (4.8-10.8) L 05/23/21 05:05 RBC 4.46 10^6/uL (4.70-6.10) L 05/23/21 05:05 Hgb 11.1 g/dL (14.0-18.0) L 05/23/21 05:05 Hct 35.8 % (42.0-52.0) L 05/23/21 05:05 MCV 80.3 fL (80.0-94.0) 05/23/21 05:05 MCH 24.9 pg (27.0-31.0) L 05/23/21 05:05 MCHC 31.0 g/dL (32.0-36.0) L 05/23/21 05:05 RDW 20.0 % (12.0-15.0) H 05/23/21 05:05 Plt Count 159 10^3/uL (130-450) 05/23/21 05:05 MPV 8.1 fL (7.4-11.4) 05/23/21 05:05 Neut # (Auto) 2.5 10^3/uL (1.5-6.6) 05/23/21 05:05 Lymph # (Auto) 1.6 10^3/uL (1.5-3.5) 05/23/21 05:05 [place] # (Auto) 0.4 10^3/uL (0.0-1.0) 05/23/21 05:05 Eos # (Auto) 0.1 10^3/uL (0.0-0.7) 05/23/21 05:05 Baso # (Auto) 0.0 10^3/uL (0.0-0.1) 05/23/21 05:05 Absolute Nucleated RBC 0.00 x10^3/uL 05/23/21 05:05 Nucleated RBC % 0.0 /100WBC 05/23/21 05:05 PT 15.0 secs (9.9-12.6) H 05/22/21 10:43 INR 1.3 (0.8-1.2) H 05/22/21 10:43 Bld Gas Analysis Time 1350 05/22/21 13:50 Sample Site LEFT RADIAL 05/22/21 13:50 ABG pH 7.66 (7.35-7.45) H* 05/22/21 13:50 ABG pCO2 22 mmHg (34-45) L* 05/22/21 13:50 ABG pO2 123 mmHg (80-100) H 05/22/21 13:50 ABG HCO3 23.8 mmol/L (22.0-26.0) 05/22/21 13:50 ABG Total CO2 24.5 MMOL/L (21.0-29.0) 05/22/21 13:50 ABG O2 Saturation 99 % (94-98) H 05/22/21 13:50 ABG Base Excess 4.9 mmol/L (-2.0-3.0) H 05/22/21 13:50 [place] Test POSITIVE 05/22/21 13:50 VBG pH 7.268 (7.31-7.41) L 05/22/21 11:34 VBG pCO2 51.3 mmHg (41-51) H 05/22/21 11:34 VBG pO2 19.2 mmHg (25-47) L 05/22/21 11:34 VBG HCO3 22.9 mmol/L (23-28) L 05/22/21 11:34 VBG Total CO2 24.5 mmol/L (24-29) 05/22/21 11:34 VBG O2 Saturation 23.8 % (60-80) L 05/22/21 11:34 VBG Base Excess -4.4 mmol/L (-2 - +2) L 05/22/21 11:34 Respiration Rate 31 b/min 05/22/21 13:50 O2 Delivery Device BiPAP 05/22/21 13:50 Vent Mode S PORT 05/22/21 13:50 FiO2 35.00 05/22/21 13:50 Pressure Support Vent 10 cmH2O 05/22/21 13:50 EPAP 5 cmH2O 05/22/21 13:50 Sodium 136 mmol/L (135-145) 05/23/21 05:05 Potassium 3.6 mmol/L (3.5-5.0) 05/23/21 05:05 Chloride 102 mmol/L (101-111) 05/23/21 05:05 Carbon Dioxide 27 mmol/L (21-32) 05/23/21 05:05 Anion Gap 7.0 (6-13) 05/23/21 05:05 BUN 13 mg/dL (6-20) 05/23/21 05:05 Creatinine 0.9 mg/dL (0.6-1.2) 05/23/21 05:05 Estimated GFR (MDRD) 82 (>89) L 05/23/21 05:05 Glucose 105 mg/dL (70-100) H 05/23/21 05:05 POC Whole Bld Glucose 98 mg/dL (70 - 100) 05/23/21 07:23 Lactic Acid 2.1 mmol/L (0.5-2.2) 05/22/21 13:12 Calcium 7.9 mg/dL (8.5-10.3) L 05/23/21 05:05 Total Bilirubin 0.6 mg/dL (0.2-1.0) 05/22/21 09:55 AST 34 IU/L (10-42) 05/22/21 09:55 ALT 29 IU/L (10-60) 05/22/21 09:55 Alkaline Phosphatase 97 IU/L (42-121) 05/22/21 09:55 Total Creatine Kinase 53 IU/L (22-269) 05/22/21 09:55 B-Natriuretic Peptide 49 pg/mL (5-100) 05/22/21 10:05 Total Protein 7.6 g/dL (6.7-8.2) 05/22/21 09:55 Albumin 2.6 g/dL (3.2-5.5) L 05/22/21 09:55 Globulin 5.0 g/dL (2.1-4.2) H 05/22/21 09:55 Albumin/Globulin Ratio 0.5 (1.0-2.2) L 05/22/21 09:55 Lipase 91 U/L (22-51) H 05/22/21 09:55 TSH 10.03 uIU/mL (0.34-5.60) H 05/22/21 10:05 Urine Color YELLOW 05/22/21 11:29 Urine Clarity HAZY (CLEAR) 05/22/21 11:29 Urine pH 7.5 PH (5.0-7.5) 05/22/21 11:29 Ur Specific [place] 1.010 (1.002-1.030) 05/22/21 11:29 Urine Protein 30 mg/dL (NEGATIVE) H 05/22/21 11:29 Urine Glucose (UA) NEGATIVE mg/dL (NEGATIVE) 05/22/21 11:29 Urine Ketones NEGATIVE mg/dL (NEGATIVE) 05/22/21 11:29 Urine Occult Blood MODERATE (NEGATIVE) H 05/22/21 11:29 Urine Nitrite NEGATIVE (NEGATIVE) 05/22/21 11:29 Urine Bilirubin NEGATIVE (NEGATIVE) 05/22/21 11:29 Urine Urobilinogen 0.2 (NORMAL) E.U./dL (NORMAL) 05/22/21 11:29 Ur Leukocyte Esterase SMALL (NEGATIVE) H 05/22/21 11:29 Urine RBC 0-5 /HPF (0-5) 05/22/21 11:29 Urine WBC >25 /HPF (0-3) H 05/22/21 11:29 Urine WBC Clumps PRESENT 05/22/21 11:29 Ur Squamous Epith Cells NONE SEEN (<= Few) 05/22/21 11:29 Urine Bacteria Few /HPF (None Seen) 05/22/21 11:29 Ur Microscopic Review INDICATED 05/22/21 11:29 Urine Culture Comments INDICATED 05/22/21 11:29 Nasal Adenovirus (PCR) NOT DETECTED 05/22/21 09:58 Nasal B. parapertussis DNA (PCR) NOT DETECTED 05/22/21 09:58 Nasal Coronavir 229E PCR NOT DETECTED 05/22/21 09:58 Nasal Coronavir HKU1 PCR NOT DETECTED 05/22/21 09:58 Nasal Coronavir NL63 PCR NOT DETECTED 05/22/21 09:58 Nasal Coronavir OC43 PCR NOT DETECTED 05/22/21 09:58 Nasal Enterovir/Rhinovir PCR NOT DETECTED 05/22/21 09:58 Nasal Influenza B PCR NOT DETECTED 05/22/21 09:58 Nasal Influenza A PCR NOT DETECTED 05/22/21 09:58 Nasal Parainfluen 1 PCR NOT DETECTED 05/22/21 09:58 Nasal Parainfluen 2 PCR NOT DETECTED 05/22/21 09:58 Nasal Parainfluen 3 PCR NOT DETECTED 05/22/21 09:58 Nasal Parainfluen 4 PCR NOT DETECTED 05/22/21 09:58 Nasal RSV (PCR) NOT DETECTED 05/22/21 09:58 Nasal B.pertussis DNA PCR NOT DETECTED 05/22/21 09:58 Nasal C.pneumoniae (PCR) NOT DETECTED 05/22/21 09:58 Chon Human Metapneumo PCR NOT DETECTED 05/22/21 09:58 Nasal M.pneumoniae (PCR) NOT DETECTED 05/22/21 09:58 Nasal SARS-CoV-2 (PCR) NOT DETECTED 05/22/21 09:58 Urine Opiates Screen NEGATIVE (NEGATIVE) 05/22/21 11:29 Ur Oxycodone Screen NEGATIVE (NEGATIVE) 05/22/21 11:29 Urine Methadone Screen NEGATIVE (NEGATIVE) 05/22/21 11:29 Ur Propoxyphene Screen NEGATIVE (NEGATIVE) 05/22/21 11:29 Ur Barbiturates Screen NEGATIVE (NEGATIVE) 05/22/21 11:29 Ur Tricyclics Screen NEGATIVE (NEGATIVE) 05/22/21 11:29 Ur Phencyclidine Scrn NEGATIVE (NEGATIVE) 05/22/21 11:29 Ur Amphetamine Screen NEGATIVE (NEGATIVE) 05/22/21 11:29 U Methamphetamines Scrn NEGATIVE (NEGATIVE) 05/22/21 11:29 U Benzodiazepines Scrn NEGATIVE (NEGATIVE) 05/22/21 11:29 Urine Cocaine Screen NEGATIVE (NEGATIVE) 05/22/21 11:29 U Cannabinoids Screen NEGATIVE (NEGATIVE) 05/22/21 11:29 Ethyl Alcohol < 5.0 mg/dL 05/22/21 09:55 - Procedures Procedures: Procedures ENDOSC POLYPECTOMY OF LG INTEST (10/09/14) EXCISION OF ASCENDING COLON, ENDO (07/10/20) EXCISION OF CECUM, ENDO (07/10/20) ABX Reporting Has patient been on IV antibiotics over the past 48 hours?: No
[2021-05-23] MEDS: polyethylene glycoL 3350 17 GM PACKET PO SCH (09:01)
[2021-05-23] MEDS: APIXABAN 5 MG TABLET PO SCH ×2 (09:01→20:41)
[2021-05-23] MEDS: METOPROLOL SUCCINATE 25 MG TABLET PO SCH (09:01)
[2021-05-23] MEDS: INSULIN ASPART 300 UNIT/3 ML PEN SUBQ SCH ×4 (09:05→20:41)
[2021-05-23] MEDS ORDERED: GADOBUTROL 7.5 MMOL/7.5 ML VIAL ONE (11:46)
[2021-05-23 11:59] LABS: ESTIMATED AVERAGE GLUCOSE 186 mg/dL (70-100); HEMOGLOBIN A1c% 8.1 % (4.27-6.07)
[2021-05-23] MEDS: ZINC OXIDE 20% OINT 30 GM TUBE TOP SCH ×2 (13:12→20:42)
--- NOTE | 2021-05-23 13:20 | CONSULTATION NOTE ---
Palliative Care Consultation - Referral Referring Provider: Dr. 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 He originally presented with painless hematuria 03/2019, had imaging 04/2019 with right renal mass, unfortunately work was delayed due to Covid. Patient had a biopsy in August 2019, and a radical nephrectomy 09/2019 with final path available. He did have a CT scan of the chest 06/06 and 09/05 suspicious for new pulmonary mets, unfortunately lung nodule was nondiagnositic.He did originally start with immunotherapy with ipilimumab and nivolumab which she received in [place] as we do not do this here on the [place], on 12/06 for completion of 4 cycles. He then transition to maintenance nivolumab 02/05. With progression of disease, he was initiated on cabozantinib 60 mg oral on 05/01/2021, patient had been having declining functional status since February 2021. With increasing weight loss, muscle wasting,e declining functional status to the point patient was mostly bedbound the last couple weeks. Presented to oncology on 05/22, with an episode of syncope, reports room was spinning, he was observed to have drooling, and unresponsive, he was in triage in the ED. Patient was thought to have a urinary tract infection, which has been confirmed. 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 What seems to be fairly remarkable is the rapid decline over the last 2 months, he was ambulatory and independent previously, now he is mostly bedbound. He has had a loss of appetite, his baseline weight weight was 190, he is down to 132. His care needs are increasing, which is quite frustrating to the patient, they do have a friend who is staying with him, that is helping with his ADLs and bathing. He is incontinent of urine, this is a residual from patient's history of prostate cancer, had been able to previously manage on his own. He did have a radical prostatectomy 2007 with this. Patient does understand he has stage IV disease, he had actually been doing fairly well with treatment up to this transition to oral medications, though suspect they are's is multifactorial. Patient perceives his quality of life is declining, does understand his treatment is palliative in nature. He is worried about being a burden on his family, if he does not improve, he would be weighing benefits and burdens of continuing on. Medical/Surgical History - Past Medical History Cardiovascular: reports: Hypertension, High cholesterol, Coronary artery disease Respiratory: reports: Sleep apnea, Other (new diagnosis of 4 L lung nodules, biopsy pending next week) Endocrine/Autoimmune: reports: Type 2 diabetes GI: reports: None : reports: Incontinence, Other (nephrectomy s/p renal carcinoma 09/2019) HEENT: reports: None Psych: reports: None Musculoskeletal: reports: Osteoarthritis, Fatigue Derm: reports: None MRSA Hx?: No - Past Surgical History General: reports: Colonoscopy Cardiovascular: reports: CABG (3 vessel CABG 2018), Cardiac catheterization Social History - Living Situation Living arrangement: At home Living Situation: With spouse/s.o., With friend(s) Support System: Patient lives at home with his , they have been since 1968, she is from the [facility]. He was in the [employer] for 28 years, from which he retired. He loves to cook, is originally from [place]. He served here on [facility], and returned here to retire. They do have 1 son, who is in [place], they do have grandkids. He is wondering if he needs to come. Family History - Family History Family History: Mother: , Father: , Sister: Alive and Well, Brother: Alive and Well Medications/Allergies - Medications Active Medication List: Active Medications Acetaminophen (Acetaminophen 325 Mg Tablet) 650 mg PO Q4HR PRN PRN Reason: Pain 1 to 4, or Fever Apixaban (Apixaban 5 Mg Tablet) 5 mg PO BID [facility] Last Admin: 05/23/21 09:01 Dose: 5 mg Atorvastatin Calcium (Atorvastatin 40 Mg Tablet) 40 mg PO QPM [facility] Last Admin: 05/22/21 21:12 Dose: 40 mg Sodium Chloride (Normal Saline 0.9%) 1,000 mls @ 100 mls/hr IV .Q10H [facility] Last Admin: 05/23/21 13:12 Dose: 100 mls/hr Insulin Aspart (Insulin Aspart 300 Unit/3 Ml Pen) 1 - 5 unit SUBQ 0800,1200,1700,2100 [facility]; Protocol Last Admin: 05/23/21 12:49 Dose: Not Given Metoprolol Succinate (Metoprolol Succinate 25 Mg Tablet) 12.5 mg PO DAILY [facility] Last Admin: 05/23/21 09:01 Dose: 12.5 mg Multi-Ingredient Ointment (Zinc Oxide 20% Oint 30 Gm Tube) 1 applic TOP BID [facility] Last Admin: 05/23/21 13:12 Dose: 1 applic Ondansetron HCl (Ondansetron 4 Mg/2 Ml Vial) 4 mg IVP Q6HR PRN PRN Reason: Nausea / Vomiting Polyethylene Glycol (Polyethylene Glycol 3350 17 Gm Packet) 17 gm PO DAILY [facility] Last Admin: 05/23/21 09:01 Dose: 17 gm Sodium Chloride (Sodium Chloride Flush 0.9% 10 Ml Syringe) 10 ml IVP PRN PRN PRN Reason: NEEDED PER PROVIDER ORDERS Last Admin: 05/22/21 16:08 Dose: 10 ml Sodium Chloride (Sodium Chloride Flush 0.9% 10 Ml Syringe) 10 ml IVP 010 0,0900,1700 [facility] Last Admin: 05/23/21 03:28 Dose: Not Given Glipizide [Glipizide Xl] 5 mg PO DAILY 10/09/14 Sildenafil Citrate [Viagra] 100 mg PO DAILY PRN 10/09/14 Atorvastatin [Lipitor] 40 mg PO DAILY 06/20/20 SITagliptin [Januvia] 100 mg PO DAILY 06/20/20 Aspirin Chewable [St Swapnil Aspirin] 1 tab PO DAILY 09/19/20 Cabozantinib S-Malate [Cometriq] 60 mg PO DAILY 04/05/21 Apixaban [Eliquis] 5 mg PO BID 05/22/21 Metoprolol Succinate [Toprol Xl] 12.5 mg PO DAILY 05/22/21 lisinopriL [Zestril] 5 mg PO DAILY 05/22/21 - Allergies Allergies/Adverse Reactions: Allergies Allergy/AdvReac Type Severity Reaction Status Date / Time No Known Drug Allergies Allergy Verified 05/22/21 09:53 Review of Systems - Constitutional Constitutional: reports: Fatigue (worening), Weakness, Poor appetite, Weight loss (60 pounds) - Cardiovascular Cardiovascular: reports: Decr. exercise tolerance - Respiratory Respiratory: denies: SOB at rest - Gastrointestinal Gastrointestinal: reports: Constipation, Bloating, Poor appetite, Early satiety - Genitourinary Genitourinary: reports: Incontinence - Musculoskeletal Musculoskeletal: reports: Stiffness, Muscle weakness, Other (bedbound) - Integumentary Integumentary: reports: Dryness - Neurological Neurological: reports: General weakness - Psychiatric Psychiatric: denies: Depression, Anxiety - Endocrine Endocrine: reports: Diabetes type 2, Hypothyroidism - Hematologic/Lymphatic Hematologic/Lymph: reports: Anemia (11.1), Recurrent infections (new UTI) - All Other Systems All Other Systems: reports: Reviewed and negative Physical Exam - Vital Signs Vital Signs: Vital Signs x48h Temp Pulse Resp BP Pulse Ox 05/23/21 11:07 36.4 C L 98 18 114/76 97 05/23/21 07:29 36.3 C L 70 16 104/66 96 - Physical Exam General Appearance: positive: No acute distress, Alert Eyes Bilateral: positive: Normal inspection ENT: negative: Oral lesions Neck: positive: Trachea midline Respiratory: positive: No respiratory distress Abdomen: positive: Tenderness Skin: positive: Pallor Extremities: positive: No pedal edema Neurologic/Psychiatric: positive: Oriented x3, Mood/affect nml, Weakness, Flat affect Palliative Care - POLST Patient has POLST: Yes POLST Status: DNR, Selective Treatment Pain: No pain Tiredness/Fatigue: Severe (7-10) Drowsiness/Sedation: Moderate (4-6) Nausea: None Anorexia: Severe (7-10), Weight loss Dyspnea: None Depression: None Anxiety: Mild (1-3) Feelings of wellbeing/Perceived Quality of Life: Poor, Worsening Sleep: Sleeps poorly, Variable sleep pattern Constipation: Yes, Unmanaged Performance Status: Patient has had slow functional decline, more acutely over the last few weeks. Is quite fatigued, perceives it is mostly with muscle wasting. Has been mostly bedbound, needs assistance with pericare, is receiving total bathing assist from friend living in home who is a caregiver. It does take both his and caregiver to ambulate him several feet. They do use wheelchair for getting out for appointments. Patient previously to this was independent, independent in his ADLs and IADLs, is very discouraged with his decline - Palliative Care Discussion: Discussion with , she is hoping that he will improve, though she does see that he is declining. She is feeling somewhat overwhelmed, we did discuss the role of palliative care versus hospice, she does not feel like they are ready for that yet. But she does understand this would be part of the continuum. Patient awake, participate in conversation regarding goals of care. Patient does understand the seriousness of his illness, that he has stage IV disease, he has perceived himself as declining fairly rapidly since he started the oral chemo. Distressed that being a burden on his family, reports if he is not going to improve, he does not perceive this his quality of life and would want to take the "black pill". We did discuss in the context of this if he has any advance care planning documents, reports he has a living will he needs to "take out". We did discuss in the context of making decisions he had had a conv ersation with the hospitalist, but went on to clarify the role of a POLST in informing his care moving forward. He does understand at this point with his seriousness of his illness, if it was his time to , he would like to allow natural . This has been clarified meaning we would not do a resuscitation, or intubation. He is still focused on continuing treatment and weighing benefits and burdens moving forward, if it is not going to improve his quality of life or improve functionality, he would like to have another conversation with his oncologist regarding benefits versus burdens.His short-term goals are to improve his functionality, become less dependent on his , he had been p reviously ambulatory. He does see many losses and express feelings appropriately regarding grief regarding these. Counseling provided regarding the role of palliative care, providing symptom management, anticipatory guidance, and helping to weigh benefits and burdens of treatment decisions as they evolve.In the context of this we completed his POLST with DN AR/DNI and selective treatments. Patient would like to focus on quality of life, is still agreeable for treating reversible conditions, but does not want to be ventilated, and at end-of-life he would like to be at home and be comfortable. His was present for this conversation, reviewed the role of the POLST if she were to call 911 or return to the hospital this would be a directive as far as his care. We did discuss in the context of current decision making if he were unable to make any decisions for himself that it would fall to her, she does feel somewhat overwhelmed with this. We will revisit this. They are concerned about what to tell their son, if he needs to come out and provide some support or not. Discussed will see how he does and the outcome of treating his infection, follow-up on MRI with brain, and look further support in the home including home health. Results - Lab Results Lab results reviewed: Yes Fish Bones: 05/24/21 04:39 05/24/21 04:39 Lab and Imaging Results: Lab Results x24hrs 05/23/21 05/23/21 05/23/21 Range/Units 11:04 07:23 05:05 WBC (4.8-10.8) x10^3/uL RBC (4.70-6.10) 10^6/uL Hgb (14.0-18.0) g/dL Hct (42.0-52.0) % MCV (80.0-94.0) fL MCH (27.0-31.0) pg MCHC (32.0-36.0) g/dL RDW (12.0-15.0) % Plt Count (130-450) 10^3/uL MPV (7.4-11.4) fL Neut # (Auto) (1.5-6.6) 10^3/uL Lymph # (Auto) (1.5-3.5) 10^3/uL [place] # (Auto) (0.0-1.0) 10^3/uL Eos # (Auto) (0.0-0.7) 10^3/uL Baso # (Auto) (0.0-0.1) 10^3/uL Absolute Nucleated RBC x10^3/uL Nucleated RBC % /100WBC Bld Gas Analysis Time Sample Site ABG pH (7.35-7.45) ABG pCO2 (34-45) mmHg ABG pO2 (80-100) mmHg ABG HCO3 (22.0-26.0) mmol/L ABG Total CO2 (21.0-29.0) MMOL/L ABG O2 Saturation (94-98) % ABG Base Excess (-2.0-3.0) mmol/L Iglesia Test Respiration Rate b/min O2 Delivery Device Vent Mode FiO2 Pressure Support Vent cmH2O EPAP cmH2O Sodium (135-145) mmol/L Potassium (3.5-5.0) mmol/L Chloride (101-111) mmol/L Carbon Dioxide (21-32) mmol/L Anion Gap (6-13) BUN (6-20) mg/dL Creatinine (0.6-1.2) mg/dL Estimated GFR (MDRD) (>89) Glucose (70-100) mg/dL POC Whole Bld Glucose 119 H 98 (70 - 100) mg/dL Estimat Average Glucose 186 H (70-100) mg/dL Hemoglobin A1c % 8.1 H (4.27-6.07) % Lactic Acid (0.5-2.2) mmol/L Calcium (8.5-10.3) mg/dL 05/23/21 05/23/21 05/22/21 Range/Units 05:05 05:05 20:21 WBC 4.6 L (4.8-10.8) x10^3/uL RBC 4.46 L (4.70-6.10) 10^6/uL Hgb 11.1 L (14.0-18.0) g/dL Hct 35.8 L (42.0-52.0) % MCV 80.3 (80.0-94.0) fL MCH 24.9 L (27.0-31.0) pg MCHC 31.0 L (32.0-36.0) g/dL RDW 20.0 H (12.0-15.0) % Plt Count 159 (130-450) 10^3/uL MPV 8.1 (7.4-11.4) fL Neut # (Auto) 2.5 (1.5-6.6) 10^3/uL Lymph # (Auto) 1.6 (1.5-3.5) 10^3/uL [place] # (Auto) 0.4 (0.0-1.0) 10^3/uL Eos # (Auto) 0.1 (0.0-0.7) 10^3/uL Baso # (Auto) 0.0 (0.0-0.1) 10^3/uL Absolute Nucleated RBC 0.00 x10^3/uL Nucleated RBC % 0.0 /100WBC Bld Gas Analysis Time Sample Site ABG pH (7.35-7.45) ABG pCO2 (34-45) mmHg ABG pO2 (80-100) mmHg ABG HCO3 (22.0-26.0) mmol/L ABG Total CO2 (21.0-29.0) MMOL/L ABG O2 Saturation (94-98) % ABG Base Excess (-2.0-3.0) mmol/L Iglesia Test Respiration Rate b/min O2 Delivery Device Vent Mode FiO2 Pressure Support Vent cmH2O EPAP cmH2O Sodium 136 (135-145) mmol/L Potassium 3.6 (3.5-5.0) mmol/L Chloride 102 (101-111) mmol/L Carbon Dioxide 27 (21-32) mmol/L Anion Gap 7.0 (6-13) BUN 13 (6-20) mg/dL Creatinine 0.9 (0.6-1.2) mg/dL Estimated GFR (MDRD) 82 L (>89) Glucose 105 H (70-100) mg/dL POC Whole Bld Glucose 122 H (70 - 100) mg/dL Estimat Average Glucose (70-100) mg/dL Hemoglobin A1c % (4.27-6.07) % Lactic Acid (0.5-2.2) mmol/L Calcium 7.9 L (8.5-10.3) mg/dL 05/22/21 05/22/21 05/22/21 Range/Units 16:30 13:50 13:12 WBC (4.8-10.8) x10^3/uL RBC (4.70-6.10) 10^6/uL Hgb (14.0-18.0) g/dL Hct (42.0-52.0) % MCV (80.0-94.0) fL MCH (27.0-31.0) pg MCHC (32.0-36.0) g/dL RDW (12.0-15.0) % Plt Count (130-450) 10^3/uL MPV (7.4-11.4) fL Neut # (Auto) (1.5-6.6) 10^3/uL Lymph # (Auto) (1.5-3.5) 10^3/uL [place] # (Auto) (0.0-1.0) 10^3/uL Eos # (Auto) (0.0-0.7) 10^3/uL Baso # (Auto) (0.0-0.1) 10^3/uL Absolute Nucleated RBC x10^3/uL Nucleated RBC % /100WBC Bld Gas Analysis Time 1350 Sample Site LEFT RADIAL ABG pH 7.66 H* (7.35-7.45) ABG pCO2 22 L* (34-45) mmHg ABG pO2 123 H (80-100) mmHg ABG HCO3 23.8 (22.0-26.0) mmol/L ABG Total CO2 24.5 (21.0-29.0) MMOL/L ABG O2 Saturation 99 H (94-98) % ABG Base Excess 4.9 H (-2.0-3.0) mmol/L Iglesia Test POSITIVE Respiration Rate 31 b/min O2 Delivery Device BiPAP Vent Mode S PORT FiO2 35.00 Pressure Support Vent 10 cmH2O EPAP 5 cmH2O Sodium (135-145) mmol/L Potassium (3.5-5.0) mmol/L Chloride (101-111) mmol/L Carbon Dioxide (21-32) mmol/L Anion Gap (6-13) BUN (6-20) mg/dL Creatinine (0.6-1.2) mg/dL Estimated GFR (MDRD) (>89) Glucose (70-100) mg/dL POC Whole Bld Glucose 118 H (70 - 100) mg/dL Estimat Average Glucose (70-100) mg/dL Hemoglobin A1c % (4.27-6.07) % Lactic Acid 2.1 (0.5-2.2) mmol/L Calcium (8.5-10.3) mg/dL Impression and Recommendations - Palliative Care Impression: This is a 75-year-old gentleman with known renal cancer with metastatic disease to the lung, and worsening adrenal mass. Patient also has a history of prostate cancer, incontinence, and has had significant functional decline. He does present with failure to thrive, with decreased intake, significant weight loss, muscle wasting, and worsening fatigue. Palliative care being introduced to provide support for ongoing management of symptoms, anticipatory guidance, and advanced care planning Recommendations/Counseling Done: 1. Generalized weakness. Patient does present with worsening functional status, this is multifactorial. Patient had been ordered home health services from oncology, this is not happened yet. Most likely needs to have appropriate [id number] and documentation sent. Recommended to hospitalist order home health PT/OT for home support. Patient goals are to become more independent, patient has had significant decline over the last several weeks. 2. Weight loss. Patient describes early satiety, anorexia, taste changes and decreased intake. has been trying to push fluids, and frequent feedings patient has been somewhat resistant. Reports does not feel like eating. Though he did eat some this morning, concern regarding continued weight loss. Would recommend steroid support for appetite stimulant, did follow-up with Dr. Rustam SANTIZO with oncology, is not contraindicated with his current treatment. Will recommend dexamethasone 4 mg daily with food for 2 weeks, then will titrate accordingly to response. 3. Fatigue. This is multifactorial, including muscle wasting and loss, side effects of therapy, infection, and patient presents with mild symptoms of depression. Patient has had a history of being on duo immunotherapy followed by maintenance, may be experiencing some adrenal insufficiency, though cortisol level came back within normal limits. We will continue to monitor, dexamethasone will hopefully help with fatigue and increase sense of wellbeing at least short-term. 4. Metastatic renal CA. Patient's cabozantinib is currently on hold from appointment yesterday, will treat UTI, finished follow-up regarding work-up of AMS, oncology to reevaluate if needs to restart at lower dosing depending on patient's outcome from hospitalization. 5. Advanced care planning. Palliative care discussion regarding patient's goals of care, advanced care directives, completed POLST with DN AR/DNI and chris ective treatments. Palliative care provided support in setting of developing of rapport, will continue to follow patient on outpatient setting. Recommend home health PT/OT for further support and training with patient's functional decline. Patient asking appropriate questions regarding future planning, weighing benefits and burdens of treatment, and expected trajectory of disease. 60 minutes with greater than 50% of this done in counseling regarding continuum of care, role of palliative care, discussion of symptom management, completion of POLST and anticipatory guidance. Awaiting outcome of MRI, for further discharge planning needs. Not available by end of day.
[2021-05-23] MEDS ORDERED: GADOBUTROL 7.5 MMOL/7.5 ML VIAL IVP ONE ×2 (14:50)
[2021-05-23] MEDS: cefTRIAXone 1 GM in SODIUM CHLORIDE 0.9% MINIBAG 100 ML IV SCH (16:29)
--- NOTE | 2021-05-23 16:52 | MRI Report ---
PROCEDURE: Brain W/WO INDICATIONS: altered mental status CONTRAST: IV CONTRAST: Gadavist ml: 6 TECHNIQUE: Noncontrast axial T1 spin echo, axial T2 fast spin echo, sagittal and axial FLAIR, coronal T2 fast sp in echo, axial gradient echo, axial diffusion and ADC through the brain. After the administration of contrast, axial and coronal T1 spin echo with fat saturation through the brain. COMPARISON: Correlation is made with prior head CT, 05/22/2021 FINDINGS: Image quality: Excellent. CSF spaces: Basal cisterns are patent. No extra-axial fluid collections. Ventricles are normal in size and shape. Brain: No midline shift. No intracranial bleeds or masses. No abnormal intracranial enhancement. There is cerebral volume loss for age. There is periventricular white matter chronic small vessel is chemic change. The brainstem appears normal. Diffusion-weighted images demonstrate no acute ischemi c insults. Several remote infarctions are again seen with focal volume loss and encephalomalacia, inc luding involving the left frontal lobe and the left cerebellum. Normal intravascular flow voids are p resent. Skull and face: Calvarial marrow is normal in signal. Orbits appear normal. Sinuses: Sinuses and mastoids appear clear. IMPRESSION: No findings of acute or subacute infarction are seen. No masses or abnormal enhancement can be seen. Remote infarctions are seen, including involving the left frontal lobe and the left cerebellum, with focal volume loss and encephalomalacia. Age-appropriate brain parenchymal volume loss and chronic small vessel ischemic change can be seen. Reviewed by: Scott Landry MD on 05/23/2021 3:51 PM [facility] Approved by: Scott Landry MD on 05/23/2021 3:51 PM [facility] Station ID: [id number]
[2021-05-23] MEDS: SENNA 8.6 MG TABLET PO SCH (20:41)
[2021-05-23] MEDS: DOCUSATE SODIUM 250 MG CAPSULE PO SCH (20:41)
[2021-05-23] MEDS: ATORVASTATIN 40 MG TABLET PO SCH (20:41)
[2021-05-24] MEDS: ZINC OXIDE 20% OINT 30 GM TUBE TOP SCH (00:50)
[2021-05-24] MEDS: SODIUM CHLORIDE FLUSH 0.9% 10 ML SYRINGE IVP SCH ×3 (01:05→17:26)
[2021-05-24 05:38] LABS: EOSINOPHILS # (AUTO) 0.2 10^3/uL (0.0-0.7); EOSINOPHILS % (AUTO) 3.9 %; HCT - HEMATOCRIT 33.9 % (42.0-52.0); HGB - HEMOGLOBIN 10.5 g/dL (14.0-18.0); LYMPHOCYTES # (AUTO) 1.2 10^3/uL (1.5-3.5); LYMPHOCYTES % (AUTO) 28.8 %; MEAN CORPUSCULAR HEMOGLOBIN 24.9 pg (27.0-31.0); MEAN CORPUSCULAR VOLUME 80.5 fL (80.0-94.0); MEAN PLATELET VOLUME 8.4 fL (7.4-11.4); MONOCYTES # (AUTO) 0.3 10^3/uL (0.0-1.0); MONOCYTES % (AUTO) 6.1 %; NEUTROPHILS # (AUTO) 2.5 10^3/uL (1.5-6.6); PLT - PLATELET COUNT 139 10^3/uL (130-450); RED BLOOD COUNT 4.21 10^6/uL (4.70-6.10); WHITE BLOOD COUNT 4.1 x10^3/uL (4.8-10.8)
[2021-05-24 05:48] LABS: CALCIUM 7.7 mg/dL (8.5-10.3); CREATININE 0.8 mg/dL (0.6-1.2); POTASSIUM 3.8 mmol/L (3.5-5.0)
[2021-05-24] MEDS: SODIUM CHLORIDE 0.9% 1,000 ML IV SCH ×2 (06:46→17:26)
--- NOTE | 2021-05-24 07:48 | PROVIDER PROGRESS NOTE ---
Assessment/Plan - Problem List (5) Diabetes mellitus Qualifiers: Diabetes mellitus type: type 2 - Current Meds Current Meds: Current Medications Generic Name Dose Route Start Last Admin Trade Name Freq PRN Reason Stop Dose Admin Apixaban 5 mg 05/22/21 21:00 05/23/21 20:41 Apixaban 5 Mg Tablet PO 5 mg BID LISSETH Administration Atorvastatin Calcium 40 mg 05/22/21 21:00 05/23/21 20:41 Atorvastatin 40 Mg Tablet PO 40 mg QPM LISSETH Administration Docusate Sodium 250 - 500 mg 05/23/21 21:00 05/23/21 20:41 Docusate Sodium 250 Mg Capsule PO 250 mg DAILY LISSETH Administration Sodium Chloride 1,000 mls @ 100 mls/hr 05/22/21 15:00 05/24/21 06:46 Normal Saline 0.9% IV 100 mls/hr .Q10H LISSETH Administration Ceftriaxone Sodium 1 gm/ 100 mls @ 200 mls/hr 05/23/21 17:00 05/23/21 16:59 Sodium Chloride IV Infused DAILY LISSETH Infusion Insulin Aspart 1 - 5 unit 05/22/21 17:00 05/23/21 20:41 Insulin Aspart 300 Unit/3 Ml Pen SUBQ 1 unit 0800,1200,1700,2100 LISSETH Administration Protocol Metoprolol Succinate 12.5 mg 05/23/21 09:00 05/23/21 09:01 Metoprolol Succinate 25 Mg Tablet PO 12.5 mg DAILY LISSETH Administration Multi-Ingredient Ointment 1 applic 05/23/21 09:00 05/24/21 00:50 Zinc Oxide 20% Oint 30 Gm Tube TOP 1 applic BID LISSETH Administration Polyethylene Glycol 17 gm 05/22/21 21:00 05/23/21 09:01 Polyethylene Glycol 3350 17 Gm Packet PO 17 gm DAILY LISSETH Administration Senna 8.6 - 17.2 mg 05/23/21 21:00 05/23/21 20:41 Senna 8.6 Mg Tablet PO 8.6 mg DAILY LISSETH Administration Sodium Chloride 10 ml 05/22/21 14:20 05/22/21 16:08 Sodium Chloride Flush 0.9% 10 Ml Syringe IVP 10 ml PRN PRN Administration NEEDED PER PROVIDER ORDERS Sodium Chloride 10 ml 05/22/21 17:00 05/24/21 01:05 Sodium Chloride Flush 0.9% 10 Ml Syringe IVP Not Given 0100,0900,1700 LISSETH - Lab Result Fish Bone Diagrams: 05/24/21 04:39 05/24/21 04:39 - Additional Planning My Orders: My Active Orders 05/23/21 08:30 Palliative Care Referral [RC] ONCE 05/23/21 09:00 Metoprolol Succinate [Toprol Xl] 12.5 mg PO DAILY Zinc Oxide 20% Oint [Zinc Oxide] 1 applic TOP BID 05/23/21 13:20 Home Health Referral [CONS] Routine 05/23/21 13:23 Code Status [OTHERS] Routine 05/23/21 17:00 cefTRIAXone [Rocephin] 1 gm Sodium Chloride 0.9% Minibag [Normal Saline 0.9% Minibag] 100 ml IV DAILY 05/23/21 21:00 Docusate Sodium 250Mg Capsule [Colace 250Mg Capsule] 250 - 500 mg PO DAILY Senna [Senokot] 8.6 - 17.2 mg PO DAILY 05/25/21 05:00 BMP - BASIC METABOLIC PANEL [CHEM] DAILYLAB CBC - COMP BLD CT W/AUTO DIFF [HEME] DAILYLAB 05/26/21 05:00 BMP - BASIC METABOLIC PANEL [CHEM] DAILYLAB CBC - COMP BLD CT W/AUTO DIFF [HEME] DAILYLAB 05/27/21 05:00 BMP - BASIC METABOLIC PANEL [CHEM] DAILYLAB CBC - COMP BLD CT W/AUTO DIFF [HEME] DAILYLAB Objective Vital Signs: Vital Signs - 24 hr 05/23/21 05/23/21 05/23/21 10:52 10:55 11:07 Temperature 36.4 C L Heart Rate [ 81 81 Activity] Heart Rate [ 98 Brachial] Heart Rate [ 98 98 Sitting] Heart Rate [ 81 81 Supine] Respiratory 18 Rate Blood Pressure 118/81 H 118/81 H [Activity] Blood Pressure 114/76 [Right Brachial artery] Blood Pressure 114/76 114/76 [Sitting] Blood Pressure 109/73 109/73 [Supine] O2 Saturation 97 05/23/21 05/23/21 05/23/21 13:34 16:00 20:33 Temperature 36.9 C Heart Rate [ 81 Activity] Heart Rate [ 74 79 Brachial] Heart Rate [ 98 Sitting] Heart Rate [ 81 Supine] Respiratory 20 19 Rate Blood Pressure 118/81 H [Activity] Blood Pressure 117/70 118/77 [Right Brachial artery] Blood Pressure 114/76 [Sitting] Blood Pressure 109/73 [Supine] O2 Saturation 97 97 05/24/21 05/24/21 00:48 05:00 Temperature 36.9 C 36.5 C Heart Rate [ Activity] Heart Rate [ 74 67 Brachial] Heart Rate [ Sitting] Heart Rate [ Supine] Respiratory 19 18 Rate Blood Pressure [Activity] Blood Pressure 129/75 118/70 [Right Brachial artery] Blood Pressure [Sitting] Blood Pressure [Supine] O2 Saturation 97 97 Oxygen O2 Source Room air I&O (Last 24 Hrs): Intake and Output Totals x24h 05/22/21 05/23/21 05/24/21 23:59 23:59 23:59 Intake Total 1870 3780 1100 Balance 1870 3780 1100 - Results Results: Laboratory Results WBC 4.1 x10^3/uL (4.8-10.8) L 05/24/21 04:39 RBC 4.21 10^6/uL (4.70-6.10) L 05/24/21 04:39 Hgb 10.5 g/dL (14.0-18.0) L 05/24/21 04:39 Hct 33.9 % (42.0-52.0) L 05/24/21 04:39 MCV 80.5 fL (80.0-94.0) 05/24/21 04:39 MCH 24.9 pg (27.0-31.0) L 05/24/21 04:39 MCHC 31.0 g/dL (32.0-36.0) L 05/24/21 04:39 RDW 20.0 % (12.0-15.0) H 05/24/21 04:39 Plt Count 139 10^3/uL (130-450) 05/24/21 04:39 MPV 8.4 fL (7.4-11.4) 05/24/21 04:39 Neut # (Auto) 2.5 10^3/uL (1.5-6.6) 05/24/21 04:39 Lymph # (Auto) 1.2 10^3/uL (1.5-3.5) L 05/24/21 04:39 [place] # (Auto) 0.3 10^3/uL (0.0-1.0) 05/24/21 04:39 Eos # (Auto) 0.2 10^3/uL (0.0-0.7) 05/24/21 04:39 Baso # (Auto) 0.0 10^3/uL (0.0-0.1) 05/24/21 04:39 Absolute Nucleated RBC 0.00 x10^3/uL 05/24/21 04:39 Nucleated RBC % 0.0 /100WBC 05/24/21 04:39 PT 15.0 secs (9.9-12.6) H 05/22/21 10:43 INR 1.3 (0.8-1.2) H 05/22/21 10:43 Bld Gas Analysis Time 1350 05/22/21 13:50 Sample Site LEFT RADIAL 05/22/21 13:50 ABG pH 7.66 (7.35-7.45) H* 05/22/21 13:50 ABG pCO2 22 mmHg (34-45) L* 05/22/21 13:50 ABG pO2 123 mmHg (80-100) H 05/22/21 13:50 ABG HCO3 23.8 mmol/L (22.0-26.0) 05/22/21 13:50 ABG Total CO2 24.5 MMOL/L (21.0-29.0) 05/22/21 13:50 ABG O2 Saturation 99 % (94-98) H 05/22/21 13:50 ABG Base Excess 4.9 mmol/L (-2.0-3.0) H 05/22/21 13:50 [place] Test POSITIVE 05/22/21 13:50 VBG pH 7.268 (7.31-7.41) L 05/22/21 11:34 VBG pCO2 51.3 mmHg (41-51) H 05/22/21 11:34 VBG pO2 19.2 mmHg (25-47) L 05/22/21 11:34 VBG HCO3 22.9 mmol/L (23-28) L 05/22/21 11:34 VBG Total CO2 24.5 mmol/L (24-29) 05/22/21 11:34 VBG O2 Saturation 23.8 % (60-80) L 05/22/21 11:34 VBG Base Excess -4.4 mmol/L (-2 - +2) L 05/22/21 11:34 Respiration Rate 31 b/min 05/22/21 13:50 O2 Delivery Device BiPAP 05/22/21 13:50 Vent Mode S PORT 05/22/21 13:50 FiO2 35.00 05/22/21 13:50 Pressure Support Vent 10 cmH2O 05/22/21 13:50 EPAP 5 cmH2O 05/22/21 13:50 Sodium 136 mmol/L (135-145) 05/24/21 04:39 Potassium 3.8 mmol/L (3.5-5.0) 05/24/21 04:39 Chloride 104 mmol/L (101-111) 05/24/21 04:39 Carbon Dioxide 25 mmol/L (21-32) 05/24/21 04:39 Anion Gap 7.0 (6-13) 05/24/21 04:39 BUN 10 mg/dL (6-20) 05/24/21 04:39 Creatinine 0.8 mg/dL (0.6-1.2) 05/24/21 04:39 Estimated GFR (MDRD) 94 (>89) 05/24/21 04:39 Glucose 136 mg/dL (70-100) H 05/24/21 04:39 POC Whole Bld Glucose 120 mg/dL (70 - 100) H 05/24/21 07:38 Estimat Average Glucose 186 mg/dL (70-100) H 05/23/21 05:05 Hemoglobin A1c % 8.1 % (4.27-6.07) H 05/23/21 05:05 Lactic Acid 2.1 mmol/L (0.5-2.2) 05/22/21 13:12 Calcium 7.7 mg/dL (8.5-10.3) L 05/24/21 04:39 Total Bilirubin 0.6 mg/dL (0.2-1.0) 05/22/21 09:55 AST 34 IU/L (10-42) 05/22/21 09:55 ALT 29 IU/L (10-60) 05/22/21 09:55 Alkaline Phosphatase 97 IU/L (42-121) 05/22/21 09:55 Total Creatine Kinase 53 IU/L (22-269) 05/22/21 09:55 B-Natriuretic Peptide 49 pg/mL (5-100) 05/22/21 10:05 Total Protein 7.6 g/dL (6.7-8.2) 05/22/21 09:55 Albumin 2.6 g/dL (3.2-5.5) L 05/22/21 09:55 Globulin 5.0 g/dL (2.1-4.2) H 05/22/21 09:55 Albumin/Globulin Ratio 0.5 (1.0-2.2) L 05/22/21 09:55 Lipase 91 U/L (22-51) H 05/22/21 09:55 TSH 10.03 uIU/mL (0.34-5.60) H 05/22/21 10:05 Cortisol 15.7 ug/dL 05/23/21 12:45 Cortisol AM Sample 15.0 ug/dL 05/24/21 04:39 Urine Color YELLOW 05/22/21 11:29 Urine Clarity HAZY (CLEAR) 05/22/21 11:29 Urine pH 7.5 PH (5.0-7.5) 05/22/21 11:29 Ur Specific [place] 1.010 (1.002-1.030) 05/22/21 11:29 Urine Protein 30 mg/dL (NEGATIVE) H 05/22/21 11:29 Urine Glucose (UA) NEGATIVE mg/dL (NEGATIVE) 05/22/21 11:29 Urine Ketones NEGATIVE mg/dL (NEGATIVE) 05/22/21 11:29 Urine Occult Blood MODERATE (NEGATIVE) H 05/22/21 11:29 Urine Nitrite NEGATIVE (NEGATIVE) 05/22/21 11:29 Urine Bilirubin NEGATIVE (NEGATIVE) 05/22/21 11:29 Urine Urobilinogen 0.2 (NORMAL) E.U./dL (NORMAL) 05/22/21 11:29 Ur Leukocyte Esterase SMALL (NEGATIVE) H 05/22/21 11:29 Urine RBC 0-5 /HPF (0-5) 05/22/21 11:29 Urine WBC >25 /HPF (0-3) H 05/22/21 11:29 Urine WBC Clumps PRESENT 05/22/21 11:29 Ur Squamous Epith Cells NONE SEEN (<= Few) 05/22/21 11:29 Urine Bacteria Few /HPF (None Seen) 05/22/21 11:29 Ur Microscopic Review INDICATED 05/22/21 11:29 Urine Culture Comments INDICATED 05/22/21 11:29 Nasal Adenovirus (PCR) NOT DETECTED 05/22/21 09:58 Nasal B. parapertussis DNA (PCR) NOT DETECTED 05/22/21 09:58 Nasal Coronavir 229E PCR NOT DETECTED 05/22/21 09:58 Nasal Coronavir HKU1 PCR NOT DETECTED 05/22/21 09:58 Nasal Coronavir NL63 PCR NOT DETECTED 05/22/21 09:58 Nasal Coronavir OC43 PCR NOT DETECTED 05/22/21 09:58 Nasal Enterovir/Rhinovir PCR NOT DETECTED 05/22/21 09:58 Nasal Influenza B PCR NOT DETECTED 05/22/21 09:58 Nasal Influenza A PCR NOT DETECTED 05/22/21 09:58 Nasal Parainfluen 1 PCR NOT DETECTED 05/22/21 09:58 Nasal Parainfluen 2 PCR NOT DETECTED 05/22/21 09:58 Nasal Parainfluen 3 PCR NOT DETECTED 05/22/21 09:58 Nasal Parainfluen 4 PCR NOT DETECTED 05/22/21 09:58 Nasal RSV (PCR) NOT DETECTED 05/22/21 09:58 Nasal B.pertussis DNA PCR NOT DETECTED 05/22/21 09:58 Nasal C.pneumoniae (PCR) NOT DETECTED 05/22/21 09:58 Chon Human Metapneumo PCR NOT DETECTED 05/22/21 09:58 Nasal M.pneumoniae (PCR) NOT DETECTED 05/22/21 09:58 Nasal SARS-CoV-2 (PCR) NOT DETECTED 05/22/21 09:58 Urine Opiates Screen NEGATIVE (NEGATIVE) 05/22/21 11:29 Ur Oxycodone Screen NEGATIVE (NEGATIVE) 05/22/21 11:29 Urine Methadone Screen NEGATIVE (NEGATIVE) 05/22/21 11:29 Ur Propoxyphene Screen NEGATIVE (NEGATIVE) 05/22/21 11:29 Ur Barbiturates Screen NEGATIVE (NEGATIVE) 05/22/21 11:29 Ur Tricyclics Screen NEGATIVE (NEGATIVE) 05/22/21 11:29 Ur Phencyclidine Scrn NEGATIVE (NEGATIVE) 05/22/21 11:29 Ur Amphetamine Screen NEGATIVE (NEGATIVE) 05/22/21 11:29 U Methamphetamines Scrn NEGATIVE (NEGATIVE) 05/22/21 11:29 U Benzodiazepines Scrn NEGATIVE (NEGATIVE) 05/22/21 11:29 Urine Cocaine Screen NEGATIVE (NEGATIVE) 05/22/21 11:29 U Cannabinoids Screen NEGATIVE (NEGATIVE) 05/22/21 11:29 Ethyl Alcohol < 5.0 mg/dL 05/22/21 09:55 - Procedures Procedures: Procedures ENDOSC POLYPECTOMY OF LG INTEST (10/09/14) EXCISION OF ASCENDING COLON, ENDO (07/10/20) EXCISION OF CECUM, ENDO (07/10/20)
--- NOTE | 2021-05-24 07:48 | DISCHARGE SUMMARY ---
Discharge Summary Admit Date: 05/22/21 Discharge Date: 05/24/21 Discharging Provider: Radha Dey Primary Care Provider: Kamilla Quintana Code Status: Do Not Attempt Resuscitation Condition at Discharge: Serious Discharge Disposition: Home Health Service - DIAGNOSES Admission Diagnoses: Encephalopathy acute Renal cell carcinoma Chronic pulmonary embolism Discharge Diagnoses with Status of Each Condition: Encephalopathy acute: Resolved. Etiology undetermined Renal cell carcinoma: Chronic. Mets to lungs. Follow up with Oncology: Dr Garrett and palliative care in the outpatient setting Chronic pulmonary embolism: Continue eliquis. UTI: Proteus mirabilis. 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 He sees Dr. Garrett at the [facility] and is currently on cabozantinib. He was at follow-up visit with Dr. Garrett at the [facility] today 05/22/2021 when he suddenly became unresponsive, appeared ashen and had a blank stare. It appeared he was incontinent of foul-smelling urine as well. As a result he was sent to the ED for evaluation. He was noted to have a lactic acid of 6.2. VBG showed a pH of 7.256, PCO2 53.5. CT brain without contrast showed atrophy and chronic ischemic changes without acute hemorrhage or mass-effect. CT of the abdomen pelvis showed right adrenal metastatic mass which is increased from size when compared to 04/03/2021. Status post right nephrectomy. Cholelithiasis noted as well. No acute disease process noted. For concern about his blood gas he was placed on the BiPAP however he appeared significantly uncomfortable with the BiPAP. His respiratory rate was as high as the mid 30s and he was mildly tachycardic. When the BiPAP was taken off his vitals seem to normalize. He was also given a dose of Rocephin for potential UTI. While in the ED he seemed to become more alert. He was presented for admission for monitoring and possibly obtaining an MRI of the brain. He denied chest pain, dyspnea, abdominal pain, nausea, vomiting, fever or chills - HOSPITAL COURSE Hospital Course: Patient was admitted to the [facility] floor and observed overnight. He had an MRI of the brain with contrast which was negative for any mass. Evidence of previous CVAs was noted. Urine culture done at time of admission in the ED grew Proteus mirabilis. The patient was treated with Rocephin 1 g IV daily for 3 days while in the hospital and was discharged with a prescription of Cipro to 50 mg p.o. twice daily x5 days. He was seen by physical therapy and determined to benefit from physical therapy with home health in the outpatient setting. He was also prescribed a walker upon discharge. He was seen by palliative care who will continue to follow him in the outpatient setting. He was also prescribed dexamethasone 2 mg p.o. daily for 7 days. Kay Mendieta with palliative care will see him in the outpatient and determine whether to increase or discontinue the dexamethasone. He will follow-up with Dr. Garrett oncology at the [facility] in the future as planned. - ALLERGIES Allergies/Adverse Reactions: Allergies Allergy/AdvReac Type Severity Reaction Status Date / Time No Known Drug Allergies Allergy Verified 05/22/21 09:53 - MEDICATIONS Home Medications: Ambulatory Orders Medication Instructions Recorded Confirmed Glipizide [Glipizide Xl] 5 mg PO DAILY 10/09/14 05/22/21 Sildenafil Citrate [Viagra] 100 mg PO DAILY PRN 10/09/14 05/22/21 Atorvastatin [Lipitor] 40 mg PO DAILY 06/20/20 05/22/21 SITagliptin [Januvia] 100 mg PO DAILY 06/20/20 05/22/21 Aspirin Chewable [St Swapnil 1 tab PO DAILY 09/19/20 05/22/21 Aspirin] ondansetron HCL [Zofran] 4 mg PO Q6HR PRN #30 tab 11/13/20 05/22/21 Cabozantinib S-Malate [Cometriq] 60 mg PO DAILY 04/05/21 05/22/21 Apixaban [Eliquis] 5 mg PO BID 05/22/21 05/22/21 Ciprofloxacin HCl [Cipro] 250 mg PO Q12H 7 Days #14 tablet 05/22/21 05/22/21 Metoprolol Succinate [Toprol Xl] 12.5 mg PO DAILY 05/22/21 05/22/21 lisinopriL [Zestril] 5 mg PO DAILY 05/22/21 05/22/21 Ciprofloxacin [Cipro] 250 mg PO Q12H 5 Days #10 tablet 05/24/21 dexAMETHasone [Decadron] 2 mg PO DAILY 7 Days #14 tablet 05/24/21 - PHYSICAL EXAM AT DISCHARGE General Appearance: positive: No acute distress, Alert, Other (weak) Eyes Bilateral: positive: PERRL, EOMI ENT: positive: No signs of dehydration Neck: positive: No JVD, Trachea midline Respiratory: positive: Chest non-tender, No respiratory distress, Breath sounds nml. negative: Wheezes, Rales, Rhonchi Cardiovascular: positive: Regular rate & rhythm, No murmur Abdomen: positive: Non-tender, No organomegaly, Nml bowel sounds, No distention. negative: Guarding, Rebound Back: positive: Nml inspection Skin: positive: Color nml, No rash, Warm, Dry Extremities: positive: Non-tender, Nml appearance, No pedal edema Neurologic/Psychiatric: positive: Oriented x3, Mood/affect nml - LABS Result Diagrams: 05/24/21 04:39 05/24/21 04:39 - TIME SPENT Time Spent in Discharge (Minutes): 15
--- NOTE | 2021-05-24 07:49 | Discharge Plan ---
Discharge Plan Problem Reviewed?: Yes Disposition: 06 Home Health Service Condition: Serious Prescriptions: Ciprofloxacin [Cipro] 250 mg PO Q12H 5 Days #10 tablet dexAMETHasone [Decadron] 2 mg PO DAILY 7 Days #14 tablet Diet: Diabetic Activity Restrictions: Per Therapy Assistance Devices: Walker Weight Bearing: Full Weight Health Concerns: You were admitted on 05/22/21 with altered mental status. In the emergency department you were noted to have a lactic acid of 6.3. It was suspected that you may have had a seizure. You underwent an MRI of the brain to rule out possible brain mass. MRI of your brain was negative. Further work-up in the ED included a urine analysis which later on grew Proteus mirabilis. While in the hospital you received 3 doses of Rocephin IV. Upon discharge you have been prescribed Cipro to 50 mg p.o. twice daily x5 days. You were also seen by palliative care. You are being prescribed dexamethasone 2 mg p.o. daily for 7 days. You will be followed by palliative care in the outpatient setting. They will determine the need to continue or increase the dose of dexamethasone. Your chemotherapy was held on 05/22/21. You will follow-up with Dr. Garrett who will determine if and when to continue treatment. You were also seen by physical therapy during your hospital stay. You were prescribed walker upon discharge. You will also be seen by home health PT/OT in the outpatient setting. This plan was discussed with you, your and and niece. You expressed understanding and are in agreement with the plan. No Smoking: If you smoke, Please STOP! Call for help. Follow-up with: Kamilla Quintana PA-C [Primary Care Provider] -
[2021-05-24] MEDS: INSULIN ASPART 300 UNIT/3 ML PEN SUBQ SCH ×3 (08:09→16:43)
[2021-05-24] MEDS: APIXABAN 5 MG TABLET PO SCH (08:49)
[2021-05-24] MEDS: cefTRIAXone 1 GM in SODIUM CHLORIDE 0.9% MINIBAG 100 ML IV SCH (08:49)
[2021-05-24] MEDS: DOCUSATE SODIUM 250 MG CAPSULE PO SCH (08:50)
[2021-05-24] MEDS: METOPROLOL SUCCINATE 25 MG TABLET PO SCH (08:50)
[2021-05-24] MEDS: SENNA 8.6 MG TABLET PO SCH (08:51)
[2021-05-24] MEDS: polyethylene glycoL 3350 17 GM PACKET PO SCH (08:51)
[2021-05-24 15:41] VITALS: BP 130/80
== END 2021-05-24 18:36 | disposition home health service (06) | DRG 71 ==
LOC: ED 09:40 → MS2 14:20 → OBSVTOIN 05-23 17:20
PROVIDERS: ADMIT Internal Medicine; ATTEND Internal Medicine
DX: G93.40 Encephalopathy, unspecified (principal); C64.1 Malignant neoplasm of right kidney, except renal pelvis; R32 Unspecified urinary incontinence; J96.92 Respiratory failure, unspecified with hypercapnia; C78.02 Secondary malignant neoplasm of left lung; C78.01 Secondary malignant neoplasm of right lung; C79.71 Secondary malignant neoplasm of right adrenal gland; I27.82 Chronic pulmonary embolism; N39.0 Urinary tract infection, site not specified; B96.4 Proteus (mirabilis) (morganii) as the cause of diseases classified elsewhere; I25.10 Atherosclerotic heart disease of native coronary artery without angina pectoris; E03.9 Hypothyroidism, unspecified; I10 Essential (primary) hypertension; E11.9 Type 2 diabetes mellitus without complications; E78.00 Pure hypercholesterolemia, unspecified; G47.30 Sleep apnea, unspecified; K59.00 Constipation, unspecified; D64.9 Anemia, unspecified; M19.90 Unspecified osteoarthritis, unspecified site; R53.83 Other fatigue; R63.4 Abnormal weight loss; R53.1 Weakness; Z20.822 Contact with and (suspected) exposure to COVID-19; Z66 Do not resuscitate; Z74.01 Bed confinement status; R91.8 Other nonspecific abnormal finding of lung field; Z79.01 Long term (current) use of anticoagulants; Z79.52 Long term (current) use of systemic steroids; Z79.82 Long term (current) use of aspirin; Z79.84 Long term (current) use of oral hypoglycemic drugs; Z79.899 Other long term (current) drug therapy; Z85.46 Personal history of malignant neoplasm of prostate; Z86.73 Personal history of transient ischemic attack (TIA), and cerebral infarction without residual deficits; Z90.5 Acquired absence of kidney; Z90.79 Acquired absence of other genital organ(s); Z95.1 Presence of aortocoronary bypass graft
CPT/HCPCS: 36415; 80048; 82533; 85025; 97164; 97168; A9270; 0202U; 36600; 51798; 80053; 80306; 80320; 81001; 81003; 82550; 82803; 83605; 83690; 83880; 84443; 85610; 87040; 87077; 87086; 87181; 93005; 94660; 96361; 96365; 99222; 99285

== ENCOUNTER 2021-05-28 12:15 | Outpatient (CLI) | payer MEDICARE, OTHER ==
--- NOTE | 2021-05-28 20:29 | CONSULTATION NOTE ---
Palliative Care Follow Up - Referral Referring Provider: Dr. Aly Garrett Time of Visit: [id number] Referral setting: Home Referral Reason: Met Renal Cell Ca/FTT/UTI - Information Sources Records reviewed: Previous records reviewed History/Review of Systems obtained from: Patient, Family ( Donna and niece (RN)) Exam limitations: Clinical condition (patient with mild STM deficits) - History of Present Illness Update Brief HPI Update: Please see HPI 05/23 Interval update: This is a 75-year-old gentleman with stage III high-grade clear cell carcinoma, with known mets. He was recently on cabozantinib, currently on hold secondary to side effects and ongoing functional decline. Patient has had symptoms of failure to thrive, with increased weight loss, declining functional status prior to hospital limit has been bedbound for 2 to 3 weeks, increasing incontinence, and difficulty managing at home. Patient was hospitalized 05/22/21 to 05/24/2021 secondary to an event when he was visiting the oncologist, concern for TIA. Patient was found to have a UTI, MRI of the brain was negative, is being treated with Cipro outpatient Patient was not ready for hospice determined by inpatient palliative care consult, discharged to physical therapy and home health in outpatient setting, he was also initiated on dexamethasone 2 mg and has had good response. This is included increased appetite, increased sense of wellbeing, and has demonstrated increased strength at home. He is to be admitted by PT this afternoon. Unfortunately in his work-up at the hospital, his CT of the abdomen did show the right adrenal metastatic mass had increased compared to 04/03/2021, and no definitive underlying etiology was found for his encephalopathy. Patient's niece who is visiting from [place], had help initiate and provide support for transition home. She has been providing hands-on care, concern regarding is quite frail and feeling overwhelmed. Patient was able to demonstrate ability to stand and sit, does appear much stronger than in the hospital. Niece had set out medications for patient, reviewed and put some parameters given patient's fluctuating intake and weight loss. He is confided that their son is coming from [place] to provide support as there is minimal community support at this point for hands-on caregiving. They do have a woman who is staying there who is a caregiver, but she is not available until after 4 PM. She is concerned about how they are going to manage as she is leaving today . Past Medical History: Hypertension, high cholesterol, CAD, sleep apnea, lung nodules, type 2 diabetes, incontinence, history of nephrectomy s/p renal carcinoma 09/2019, osteoarthritis, fatigue, CABG x3, cardiac catheterization, history of prostate cancer 2007 s/p radical prostatectomy history of immunotherapy with ipilimumab/nivolumab 12/06 Social History - Living Situation Living arrangement: At home Living Situation: With spouse/s.o., With friend(s) Support System: Patient lives at home with his , they have been since 1968, she is from the [facility]. He was in the [employer] for 28 years for which he retired. 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 He is from [place]. He served on [employer] has returned here. They do have 1 son in [place] who is expected to come in [facility], though family does not know this. Per niece, reports may be challenged with any kind of hands-on caregiving or providing adequate care in the home. They were able to get hospital bed through [email or web address], and wheelchair. Medications/Allergies - Medications Home Medications: Ambulatory Orders Medication Instructions Recorded Confirmed Glipizide [Glipizide Xl] 5 mg PO DAILY MDD hold if BS < 120 10/09/14 05/29/21 Atorvastatin [Lipitor] 40 mg PO DAILY 06/20/20 05/29/21 SITagliptin [Januvia] 100 mg PO DAILY 06/20/20 05/29/21 Aspirin Chewable [St Swapnil 1 tab PO DAILY 09/19/20 05/29/21 Aspirin] ondansetron HCL [Zofran] 4 mg PO Q6HR PRN #30 tab 11/13/20 05/29/21 Cabozantinib S-Malate [Cometriq] 60 mg PO DAILY MDD HOLD 04/05/21 05/29/21 Metoprolol Succinate [Toprol Xl] 12.5 mg PO DAILY 05/22/21 05/29/21 lisinopriL [Zestril] 5 mg PO DAILY MDD hold if b/p , 05/22/21 05/29/21 110/60 Ciprofloxacin [Cipro] 250 mg PO Q12H 5 Days #10 tablet 05/24/21 05/29/21 MDD finishes 05/29 dexAMETHasone [Decadron] 2 mg PO DAILY 7 Days #14 tablet 05/24/21 05/29/21 Docusate Sodium [Stool Softener] 250 mg PO DAILY 05/29/21 05/29/21 - Allergies Allergies/Adverse Reactions: Allergies Allergy/AdvReac Type Severity Reaction Status Date / Time No Known Drug Allergies Allergy Verified 05/22/21 09:53 Review of Systems - Constitutional Constitutional: reports: Fatigue (remains persistent but mild improvement with dex), Weakness, Poor appetite (some improvement since home with dex), Weight loss (60 pounds) - Ears, Nose & Throat Ears, Nose & Throat: reports: Dry mouth - Cardiovascular Cardiovascular: reports: Exertional dyspnea, Decr. exercise tolerance - Respiratory Respiratory: reports: Cough (dry in am), SOB with exertion. denies: SOB at rest - Gastrointestinal Gastrointestinal: reports: Constipation (BM yesterday/improved), Bloating, Poor appetite, Early satiety - Genitourinary Genitourinary: reports: Other (using urinal) - Musculoskeletal Musculoskeletal: reports: Stiffness, Muscle weakness, Assistive devices (has walker;), Other (bedbound mostly transfering to w/c to bathroom; was able to stand at bedside for [employer]EDATOR CONTROL TRAPPER; pending PT admit today) - Integumentary Integumentary: reports: Dryness - Neurological Neurological: reports: General weakness, Memory problems - Psychiatric Psychiatric: reports: Depression - Endocrine Endocrine: reports: Diabetes type 2 (110 this am), Hypothyroidism - Hematologic/Lymphatic Hematologic/Lymph: reports: Anemia (11.1), Recurrent infections (new UTI finishing tx tomorrow; symptoms resolved) - All Other Systems All Other Systems: reports: Reviewed and negative Physical Exam - Vital Signs Temperature: 97.3 C Pulse Rate: 84 Respiratory Rate: 18 O2 Saturation: 95 Blood Pressure: 102/64 - Physical Exam General Appearance: positive: No acute distress, Alert, Cachetic Eyes Bilateral: positive: Normal inspection ENT: positive: No signs of dehydration Neck: positive: Trachea midline Cardiovascular: positive: Regular rate & rhythm Respiratory: positive: No respiratory distress, Diminished throughout Abdomen: positive: Non-tender, Soft Skin: positive: Pallor Extremities: positive: No pedal edema Neurologic/Psychiatric: positive: Oriented x3, Mood/affect nml, Weakness, Flat affect Palliative Care - POLST Patient has POLST: Yes POLST Status: DNR, Selective Treatment Pain: No pain Feelings of wellbeing/Perceived Quality of Life: Poor, Worsening (though improved since hospitalization) Sleep: Sleep improved Constipation: Yes, Intermittent constipation Performance Status: Patient had some acute decline prior to hospitalization, have been mostly bedbound. Now currently still bedbound, but able to transfer to wheelchair and transfer from wheelchair to toilet and bathroom. They are expecting physical therapy this afternoon. Patient previously in February was independent in all ADLs and IADLs. He is quite discouraged with his decline. [facility] will be providing bathing services. - Palliative Care Discussion: Patient is hopeful he will improve functionally, unclear if interested in continuing with treatment if not going to improve or return to previous level of functioning. Patient reports had spoken to his primary care provider, and had been provided a hospice booklet. Counseling provided regarding the continuum of care, reviewed goals would need to be comfort focused, and no further treatment desired. Patient is hopeful he will improve, but is somewhat realistic in the context of his decline. He has felt better on the dexamethasone and feeling his mood is somewhat elevated, is not quite ready to throw in the towel yet. We will continue to monitor. They do have a POLST with DN AR/DNI and selective treatments. We will continue to weigh benefits and burdens of moving forward, we did discuss in the context of oncology visit tomorrow, his treatment would be continue to be held. We have labs from the hospital, given the difficulty and his weakness, would recommend delaying at least 1 week, both patient and in agreement. Results - Lab Results Lab results reviewed: Yes Impression and Recommendations - Palliative Care Impression: This is a 75-year-old gentleman with known renal cancer metastatic disease to the lung and worsening adrenal mass. Patient has history of prostate cancer, incontinence, and has had significant functional decline. He has presented with failure to thrive, with decreased intake, significant weight loss, muscle wasting and worsening fatigue. Patient has responded well to dexamethasone, remains quite weak but looking forward to trying to get stronger, [facility] physical therapy/OT therapy to be initiated this week. Does present with complex social situation, with limited caregiving, feeling overwhelmed and distressed. Palliative care to continue to provide support for management of symptoms, anticipatory guidance and advanced care planning. Recommendations/Counseling Done: 1. Generalized weakness. Patient does appear stronger actually than in the hospital. Patient is demonstrated ability to get from laying to sitting, was able to stand with walker for our PREDATOR CONTROL TRAPPER. Patient is to initiate physical therapy this afternoon. They are able to transfer to wheelchair for toileting. Patient is feeling hopeful will improve, will continue to monitor. 2. Weight loss. Patient describes early satiety, anorexia, taste changes and decreased intake most likely attributed to side effects of treatment and disease. Patient reports better appetite with initiation of dexamethasone, and has been eating better. Encouraged to continue small frequent feedings, and increase calories overall. Niece expresses concern regarding aunts ability to provide adequate nutrition and meal prep. Patient had previously been the one who was doing meal preparation. She did confide her knowledge that son was coming, hopefully this will continue to provide support I will reach out to son on arrival. Will leave current dexamethasone at 2 mg daily as this seemed to be effective. 3. Metastatic renal cancer. Patient's cabozantinib is currently on hold, unclear if disease or side effects of therapy etiology of decline. At this point in time the burdens outweigh the benefits given patient's acute hospitalization, have been in communication with Dr. Garrett, will address at his next visit. Visit delayed 1 week with hope to see improvements in patient's functional and cognitive status. 4. Diabetes type 2. Patient is able to check blood sugars, does have glipizide, encouraged to hold if less than 120 given patient's weight loss and decreased intake.Instructions written out for , will continue with Eddie. 5. Hypertension. Patient is actually been hypotensive, is currently on lisinopril, instructed to hold if less than 110/60, will monitor may consider discontinuing given patient's weight loss and decreased intake. 6. UTI. Patient almost completed Cipro, no further signs or symptoms of infection. Patient has been using urinal, so less incontinence and wet depends. 7. Advanced care planning. Counseling provided regarding the continuum of care, addressed questions regarding hospice in the context needs to aligned with goals of comfort focused care only. If patient not to continue treatment or has no other treatment options, would recommend transition to hospice given complex social situation would benefit from extra layer support. Currently being supported by [facility] PT/OT and they will be providing bathing. Did follow-up with [facility] to see if they could provide SCHEDULING ASSISTANT for resources as well, they do not currently have SCHEDULING ASSISTANT. Will make a referral to [facility]. 45 minutes with greater than 50% of this done in counseling regarding symptom management, medication management, coordination of care with oncology team, and anticipatory guidance
== END 2021-05-28 12:16 | disposition home or self-care (01) ==
LOC: PC 12:15
PROVIDERS: ATTEND Nurse Practitioner Adult Health
DX: Z51.5 Encounter for palliative care (principal); R53.1 Weakness; C64.9 Malignant neoplasm of unspecified kidney, except renal pelvis; C79.9 Secondary malignant neoplasm of unspecified site; R63.4 Abnormal weight loss; E11.9 Type 2 diabetes mellitus without complications; Z79.84 Long term (current) use of oral hypoglycemic drugs; I10 Essential (primary) hypertension; Z66 Do not resuscitate
CPT/HCPCS: 99349

== ENCOUNTER 2021-05-31 18:51 | Outpatient (CLI) | payer MEDICARE, OTHER | END 2021-05-31 18:52 | disposition critical access hospital (66) | LOC: EMS 18:51 | DX: R04.2 Hemoptysis (principal) | CPT/HCPCS: A0425; A0429 ==

== ENCOUNTER 2021-05-31 19:09 | Inpatient (IN) | payer MEDICARE, OTHER ==
--- NOTE | 2021-05-31 19:42 | ED Physician Documentation ---
History of Present Illness - Stated complaint Stated Complaint: COUGHING UP BLOOD - Chief complaint Chief Complaint: Resp - History obtained from History obtained from: Patient, Family, EMS - Additonal information Additional information: 75-year-old gentleman with history of stage III clear cell carcinoma status post nephrectomy September 2019 and lung metastases. He was on immunotherapy which was recently stopped after an episode of encephalopathy. Today around 2:00 started coughing. At first he was coughing clear sputum and then it became quite bloody. He states that he coughed up an equivalent amount of blood to may be the surface area of 2 or 3 palms. He denies shortness of breath or chest pain. According to his records he has a history of PE, he was on Eliquis but it sounds like it was recently stopped. He denies pedal edema or calf pain. Clarified with him that he is coughing up blood, not vomiting it. He is brought in by EMS accompanied by his . Review of Systems Ten Systems: 10 systems reviewed and negative Constitutional: reports: Reviewed and negative Ears: reports: Reviewed and negative Nose: reports: Reviewed and negative Throat: reports: Reviewed and negative PD PAST MEDICAL HISTORY - Past Medical History Cardiovascular: Hypertension, High cholesterol, Coronary artery disease Respiratory: Sleep apnea, Other (new diagnosis of 4 L lung nodules, biopsy pending next week) Endocrine/Autoimmune: Type 2 diabetes GI: None : Incontinence, Other (nephrectomy s/p renal carcinoma 09/2019) HEENT: None Psych: None Musculoskeletal: Osteoarthritis, Fatigue Derm: None - Past Surgical History General: Colonoscopy Cardiovascular: CABG (3 vessel CABG 2018), Cardiac catheterization - Present Medications Home Medications: Ambulatory Orders Medication Instructions Recorded Confirmed Glipizide [Glipizide Xl] 5 mg PO DAILY MDD hold if BS < 120 10/09/14 05/29/21 Atorvastatin [Lipitor] 40 mg PO DAILY 06/20/20 05/29/21 SITagliptin [Januvia] 100 mg PO DAILY 06/20/20 05/29/21 Aspirin Chewable [St Swapnil 1 tab PO DAILY 09/19/20 05/29/21 Aspirin] ondansetron HCL [Zofran] 4 mg PO Q6HR PRN #30 tab 11/13/20 05/29/21 Cabozantinib S-Malate [Cometriq] 60 mg PO DAILY MDD HOLD 04/05/21 05/29/21 Metoprolol Succinate [Toprol Xl] 12.5 mg PO DAILY 05/22/21 05/29/21 lisinopriL [Zestril] 5 mg PO DAILY MDD hold if b/p , 05/22/21 05/29/21 110/60 Ciprofloxacin [Cipro] 250 mg PO Q12H 5 Days #10 tablet 05/24/21 05/29/21 MDD finishes 05/29 dexAMETHasone [Decadron] 2 mg PO DAILY 7 Days #14 tablet 05/24/21 05/29/21 Docusate Sodium [Stool Softener] 250 mg PO DAILY 05/29/21 05/29/21 - Allergies Allergies/Adverse Reactions: Allergies Allergy/AdvReac Type Severity Reaction Status Date / Time No Known Drug Allergies Allergy Verified 05/22/21 09:53 - Social History Smoking Status: Never smoker - POLST Patient has POLST: Yes POLST Status: Full Code PD ED PE NORMAL - Vitals Vital signs reviewed: Yes - General General: Alert and oriented X 3, No acute distress - HEENT HEENT: PERRL, EOMI - Neck Neck: Supple, no meningeal sign, No bony TTP - Cardiac Cardiac: Other (tachy, reg) - Respiratory Respiratory: Other (rhochi/wheezes bilat) - Back Back: No CVA TTP, No spinal TTP - Derm Derm: Normal color, Warm and dry - Extremities Extremities: No edema, No calf tenderness / cord - Neuro Neuro: Alert and oriented X 3, Normal speech Results - Vitals Vitals: Vital Signs - 24 hr 05/31/21 05/31/21 05/31/21 19:15 19:25 19:53 Temperature 37 C Heart Rate 125 H 120 H 120 H Respiratory 22 24 24 Rate Blood Pressure 100/82 H 100/82 H 108/77 O2 Saturation 92 92 05/31/21 05/31/21 05/31/21 20:01 20:20 20:27 Temperature Heart Rate 123 H 108 H 108 H Respiratory 24 22 Rate Blood Pressure 123/78 101/73 O2 Saturation 88 L 93 97 05/31/21 21:28 Temperature Heart Rate 107 H Respiratory 23 Rate Blood Pressure 148/76 H O2 Saturation 99 Oxygen O2 Source Nasal cannula Oxygen Flow Rate 4 - EKG (time done) 1933 Rate: Rate (enter#) (118) Rhythm: Sinus tachycardia (w pvc) [place]: RAD Intervals: Normal GA QRS: Normal Ischemia: Non specific changes. No: ST elevation c/w ischemia, ST depression - Labs Labs: Laboratory Tests 05/31/21 05/31/21 05/31/21 19:30 19:43 19:43 WBC 4.0 L RBC 4.98 Hgb 12.7 L Hct 40.6 L MCV 81.5 MCH 25.5 L MCHC 31.3 L RDW 22.7 H Plt Count 221 MPV 7.7 Neut # (Auto) 2.2 Lymph # (Auto) 1.3 L [place] # (Auto) 0.3 Eos # (Auto) 0.1 Baso # (Auto) 0.0 Absolute Nucleated RBC 0.00 Nucleated RBC % 0.0 Manual Slide Review Indicated Platelet Estimate NORMAL (130-450,000) Platelet Morphology NORMAL APPEARANCE RBC Morph Micro Appear 2+ ANISOCYTOSIS PT 13.1 H INR 1.2 Sodium Potassium Chloride Carbon Dioxide Anion Gap BUN Creatinine Estimated GFR (MDRD) Glucose Calcium Magnesium Total Bilirubin AST ALT Alkaline Phosphatase Troponin I High Sens Total Protein Albumin Globulin Albumin/Globulin Ratio Nasal Adenovirus (PCR) NOT DETECTED Nasal B. parapertussis DNA (PCR) NOT DETECTED Nasal Coronavir 229E PCR NOT DETECTED Nasal Coronavir HKU1 PCR NOT DETECTED Nasal Coronavir NL63 PCR NOT DETECTED Nasal Coronavir OC43 PCR NOT DETECTED Nasal Enterovir/Rhinovir PCR NOT DETECTED Nasal Influenza B PCR NOT DETECTED Nasal Influenza A PCR NOT DETECTED Nasal Parainfluen 1 PCR NOT DETECTED Nasal Parainfluen 2 PCR NOT DETECTED Nasal Parainfluen 3 PCR NOT DETECTED Nasal Parainfluen 4 PCR NOT DETECTED Nasal RSV (PCR) NOT DETECTED Nasal B.pertussis DNA PCR NOT DETECTED Nasal C.pneumoniae (PCR) NOT DETECTED [place] Human Metapneumo PCR NOT DETECTED Nasal M.pneumoniae (PCR) NOT DETECTED Nasal SARS-CoV-2 (PCR) NOT DETECTED Ethyl Alcohol Blood Type Antibody Screen 05/31/21 05/31/21 05/31/21 19:43 19:43 19:43 WBC RBC Hgb Hct MCV MCH MCHC RDW Plt Count MPV Neut # (Auto) Lymph # (Auto) [place] # (Auto) Eos # (Auto) Baso # (Auto) Absolute Nucleated RBC Nucleated RBC % Manual Slide Review Platelet Estimate Platelet Morphology RBC Morph Micro Appear PT INR Sodium 135 Potassium 3.5 Chloride 95 L Carbon Dioxide 29 Anion Gap 11.0 BUN 14 Creatinine 0.8 Estimated GFR (MDRD) 94 Glucose 165 H Calcium 8.4 L Magnesium 1.8 Total Bilirubin 0.4 AST 34 ALT 46 Alkaline Phosphatase 76 Troponin I High Sens 8.6 Total Protein 6.6 L Albumin 2.3 L Globulin 4.3 H Albumin/Globulin Ratio 0.5 L Nasal Adenovirus (PCR) Nasal B. parapertussis DNA (PCR) Nasal Coronavir 229E PCR Nasal Coronavir HKU1 PCR Nasal Coronavir NL63 PCR Nasal Coronavir OC43 PCR Nasal Enterovir/Rhinovir PCR Nasal Influenza B PCR Nasal Influenza A PCR Nasal Parainfluen 1 PCR Nasal Parainfluen 2 PCR Nasal Parainfluen 3 PCR Nasal Parainfluen 4 PCR Nasal RSV (PCR) Nasal B.pertussis DNA PCR Nasal C.pneumoniae (PCR) [place] Human Metapneumo PCR Nasal M.pneumoniae (PCR) Nasal SARS-CoV-2 (PCR) Ethyl Alcohol < 5.0 Blood Type A POSITIVE Antibody Screen NEGATIVE PD MEDICAL DECISION MAKING - ED course ED course: 75-year-old gentleman with metastatic clear-cell renal cancer presents with acute gross hemoptysis and significant oxygen requirements requiring about 6 L of oxygen here in the department. Differential diagnosis includes pneumonia, recurrence of PE, or tumors causing hemoptysis. CT pulmonary angiogram was done and he has old pulmonary embolus but nothing looking acute. Numerous metastatic lesions likely causing the hemoptysis, groundglass and consolidative opacities which could represent a concurrent infectious process from an atypical organism, atherosclerosis and right adrenal metastatic lesion We discussed goals of care. He is clear that he is DNR/DNI. We discussed that we really do not have any way to specifically [place] He did not want to go to the [facility] for intervention. He does want conservative t herapy such as oxygen and antibiotics though. Spoke with Dr. Bush for admission at 10 PM. Departure - Departure Disposition: ED Place in Observation Clinical Impression: Atypical pneumonia, Renal cell carcinoma, Hemoptysis, Respiratory failure Condition: Serious
[2021-05-31 19:51] LABS: EOSINOPHILS # (AUTO) 0.1 10^3/uL (0.0-0.7); EOSINOPHILS % (AUTO) 2.5 %; HCT - HEMATOCRIT 40.6 % (42.0-52.0); HGB - HEMOGLOBIN 12.7 g/dL (14.0-18.0); LYMPHOCYTES # (AUTO) 1.3 10^3/uL (1.5-3.5); LYMPHOCYTES % (AUTO) 33.9 %; MEAN CORPUSCULAR HEMOGLOBIN 25.5 pg (27.0-31.0); MEAN CORPUSCULAR HGB CONC 31.3 g/dL (32.0-36.0); MEAN CORPUSCULAR VOLUME 81.5 fL (80.0-94.0); MEAN PLATELET VOLUME 7.7 fL (7.4-11.4); MONOCYTES # (AUTO) 0.3 10^3/uL (0.0-1.0); MONOCYTES % (AUTO) 7.1 %; NEUTROPHILS # (AUTO) 2.2 10^3/uL (1.5-6.6); NEUTROPHILS % (AUTO) 55.2 %; PLT - PLATELET COUNT 221 10^3/uL (130-450); RED BLOOD COUNT 4.98 10^6/uL (4.70-6.10); RED CELL DISTRIBUTION WIDTH 22.7 % (12.0-15.0)
[2021-05-31] MEDS ORDERED: IOVERSOL 320 100 ML VIAL IVP ONE ×2 (19:53→20:24)
[2021-05-31 19:59] LABS: INR 1.2 (0.8-1.2); PT - PROTHROMBIN TIME 13.1 secs (9.9-12.6)
[2021-05-31 20:04] LABS: ALBUMIN 2.3 g/dL (3.2-5.5); ALBUMIN/GLOBULIN RATIO 0.5 (1.0-2.2); ALKALINE PHOSPHATASE 76 IU/L (42-121); ALT ALANINE AMINOTRANSFERASE 46 IU/L (10-60); AST ASPARTATE AMINOTRANSFERASE 34 IU/L (10-42); BILIRUBIN,TOTAL 0.4 mg/dL (0.2-1.0); BUN - BLOOD UREA NITROGEN 14 mg/dL (6-20); CALCIUM 8.4 mg/dL (8.5-10.3); CARBON DIOXIDE - CO2 29 mmol/L (21-32); CHLORIDE 95 mmol/L (101-111); CREATININE 0.8 mg/dL (0.6-1.2); ETOH - ETHANOL < 5.0 mg/dL; GFR - MDRD 94 (>89); GLUCOSE 165 mg/dL (70-100); MAGNESIUM 1.8 mg/dL (1.7-2.8); POTASSIUM 3.5 mmol/L (3.5-5.0); SODIUM 135 mmol/L (135-145); TOTAL PROTEIN 6.6 g/dL (6.7-8.2)
[2021-05-31 20:23] LABS: PLATELET ESTIMATE, MANUAL NORMAL (130-450,000) (NORMAL); PLATELET MORPHOLOGY NORMAL APPEARANCE (NORMAL); RBC MORPHOLOGY (MULTIPLE) 2+ ANISOCYTOSIS (NORMAL)
[2021-05-31 20:29] LABS: SLIDE REVIEW? Indicated
[2021-05-31 20:45] LABS: B. PARAPERTUSSIS- RESP PCR PAN NOT DETECTED; B. PERTUSSIS- RESP PCR PANEL NOT DETECTED; C. PNEUMONIAE- RESP PCR PANEL NOT DETECTED; CORONAVIRUS 229E-RESP PCR NOT DETECTED; CORONAVIRUS HKU1-RESP PCR NOT DETECTED; CORONAVIRUS NL63-RESP PCR NOT DETECTED; CORONAVIRUS OC43-RESP PCR NOT DETECTED; HUMAN METAPNEUMOVIRUS NOT DETECTED; INFLUENZA A- RESP PCR PANEL NOT DETECTED; INFLUENZA B - RESP PCR PANEL NOT DETECTED; M. PNEUMONIAE- RESP PCR PANEL NOT DETECTED; PARAINFLUENZA VIRUS 1 NOT DETECTED; PARAINFLUENZA VIRUS 2 NOT DETECTED; PARAINFLUENZA VIRUS 3 NOT DETECTED; PARAINFLUENZA VIRUS 4 NOT DETECTED; RHINOVIRUS/ENTEROVIRUS NOT DETECTED; RSV- RESP PCR PANEL NOT DETECTED; SARS-CoV-2 -RESP PCR PANEL NOT DETECTED
--- NOTE | 2021-05-31 21:31 | CT Report ---
PROCEDURE: ANGIO CHEST W/WO INDICATIONS: hemoptysis, Lung mets, PE protocol CONTRAST: IV CONTRAST: Optiray 320 ml: 70 PO CONTRAST: *NO PO CONTRAST TECHNIQUE: After the administration of intravenous contrast, 2 mm axial images were acquired from the pulmonary apices to the posterior costophrenic angles during the arterial phase. In addition, 1 mm lung kernel and 5 mm soft tissue kernel reconstructions were performed. 3-dimensional coronal oblique maximum int ensity projection (MIP) reformats, 8 mm axial MIP, and 5 mm coronal and sagittal MPR reformats were t hen performed through the thorax. For radiation dose reduction, the following was used: automated exp osure control, adjustment of mA and/or kV according to patient size. COMPARISON: 04/03/2021 FINDINGS: Image quality: Excellent. Pulmonary arteries: Small weblike intraluminal filling defects are noted in the proximal subsegmental branch of the right lower lobe (image 97/series 5). No central pulmonary embolism identified. No acu te pulmonary emboli seen. Multiple pulmonary arteries transverse through numerous pulmonary metastati c lesions. Lungs and pleura: Interval development of numerous patchy ill-defined nodular densities/groundglass opacities of the right upper lobe right middle lobe and right lower lobe with somewhat tree-in-bud di stribution. Similar findings are noted in the left lower lobe. Redemonstration of innumerable pulmona ry metastatic lesions seen predominantly in the right hemithorax and left lower lobe. These appear st able to slightly increased in size. There is also fluid and soft tissue density within the proximal a irways of the right upper middle and lower lobes. Similar findings noted in the perihilar airways of the left lower lobe. These are in close proximity to metastatic lesions. No pleural effusions or pneu mothorax. Mediastinum: Heart size is normal, without pericardial effusion. Dense atherosclerotic calcification s of the coronary arteries. No mediastinal or hilar adenopathy. Thoracic aorta is normal in caliber and enhancement. Esophagus is normal in caliber, without hiatal hernia. Bones and chest wall: No suspicious bony lesions. Ribs and thoracic spine appear intact throughout. No axillary or supraclavicular adenopathy. The thyroid is normal in size and there are no incident al findings. Abdomen: Redemonstration of right adrenal metastatic lesion. Remainder of the visualized upper abdom inal solid organs appear normal in the early arterial phase of enhancement. IMPRESSION: 1. No acute pulmonary emboli seen. Small residual chronic appearing pulmonary embolus noted in the pr oximal subsegmental branch of the right lower lobe pulmonary artery. No evidence for acute right-side d heart strain. 2. Redemonstration of numerous pulmonary metastatic lesions which appear stable to slightly increased in size. Many of these are traversed by pulmonary arteries and there are new fluid and soft tissue d ensities noted in the proximal airways of the right hemithorax and left lower lobe. Findings may repr esent hemoptysis secondary to neoplastic invasion. 3. Interval development of numerous, diffusely scattered nodular groundglass and consolidative opacit ies in a somewhat tree-in-bud distribution involving the right hemithorax and left lower lobe. These may represent a concurrent infectious process such as bronchopneumonia from an atypical organism vers us viral infection. Recommend clinical correlation. 4. Atherosclerotic vascular disease. 5. Redemonstration of right adrenal metastatic lesion. CLINICAL RECOMMENDATION STATEMENTS: In patients <35 years with an ITN detected on CT, MRI, or extrathyroidal ultrasound, the Committee re commends further evaluation with dedicated thyroid ultrasound if the nodule is "e1 cm and has no susp icious imaging features, and if the patient has normal life expectancy. In patients "e35 years with an ITN detected on CT, MRI, or extrathyroidal ultrasound, the Committee r ecommends further evaluation with dedicated thyroid ultrasound if the nodule is "e1.5 cm and has no s uspicious imaging features, and if the patient has normal life expectancy. (ACR, 2014) Reviewed by: Ashu Nichols MD on 05/31/2021 9:30 PM PDT Approved by: Ashu Nichols MD on 05/31/2021 9:30 PM PDT Station ID: [id number]
[2021-05-31] MEDS ORDERED: ONDANSETRON 4 MG/2 ML VIAL IVP PRN (22:02)
[2021-05-31] MEDS ORDERED: oxyCODONE 5 MG TABLET PO PRN (22:02)
[2021-05-31] MEDS ORDERED: SODIUM CHLORIDE FLUSH 0.9% 10 ML SYRINGE IVP PRN (22:02)
[2021-05-31] MEDS ORDERED: ACETAMINOPHEN 325 MG TABLET PO PRN (22:02)
[2021-05-31] MEDS ORDERED: AZITHROMYCIN INJ 500 MG in SODIUM CHLORIDE 0.9% 250 ML IV STA (22:03)
--- NOTE | 2021-05-31 22:10 | HISTORY & PHYSICAL EXAMINATION ---
Chief Complaint - Chief Complaint Chief Complaint: hemoptysis History of Present Illness - Admitted From Admitted From:: home - History Obtained From Records Reviewed: mirian History obtained from: mirian, ER physician, - History of Present Illness HPI Comment/Other: This is a 75 year-old male with advanced renal cell carcinoma s/p right nephre ctomy with known mets to lungs and adrenals presenting today with new onset hemoptysis. Earlier this afternoon he started having a coughing fit and while at first he was coughing up sputum, the sputum then turned into blood. He told ED provider that the quantity of blood was about 2-3 palm surface areas. He denies shortness of breath or fevers but reports chills and "not being able to get warm." He was previously on immunotherapy but stopped it this week after having an encepholapathic response resulting in his hospitalization from 05/22-05/24/21. He had an outpatient palliative care consult with Kay LEVINE on 05/28/21. She notes failure to thrive, declining functional status, and bedbound condition and discussed with family options for future planning. His family has not pursued further advanced care planning at this time. Their RN niece from [place] was previously staying with them for additional support but has now gone home. The niece was concerned for how they will manage when she leaves. Currently, they have PT/OT and shower assistance with [employer] and were able to get a wheelchair and hospital bed at home. The patient lives at home with his who is described in palliative care to be struggling with caring for and supporting the patient in his current state of health. They also have a friend living with them who works during the day as a pipelines supervisor but is available at night for hands- on care but they have no other support during the day. Their son flew in from [place] to help out and continue end of life planning. 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 He is also worried about his mom, the patient's . The states during the interview that she "hasn't been making plans because its just so hard to think about." The patient remarks that he is "waiting for the Good Lord to call him home." At the end of the interview, family states that they will continue to discuss plan for end of life and "try to all get on the same page". History - Past Medical History Cardiovascular: reports: Hypertension, High cholesterol, Coronary artery disease Respiratory: reports: Sleep apnea, Other (none mets to lungs) Endocrine/Autoimmune: reports: Type 2 diabetes GI: reports: None : reports: Incontinence, Other (nephrectomy s/p renal carcinoma 09/2019) HEENT: reports: None Psych: reports: None Musculoskeletal: reports: Osteoarthritis, Fatigue Derm: reports: None MRSA Hx?: No - Past Surgical History General: reports: Colonoscopy, Other (r. nephrectomy 09/2019, prostatectomy 2007) Cardiovascular: reports: CABG (3 vessel CABG 2018), Cardiac catheterization - Family & Social History Family History: Mother: , Father: , Sister: Alive and Well, Brother: Alive and Well Family History Comment/Other: No family history of cancer. Living arrangement: At home Living Situation: With spouse/s.o., With friend(s) Social History Notes: Patient is and lives at home with his of 53 years. He was in the [employer] for 28 years and stationed on [employer] and is now retired. He has 1 son in [place]. He consumes alcohol moderately. He does not use tobacco products or recreational substances. - Substance History Use: Uses substance without health or social issues: Alcohol - POLST Patient has POLST: Yes POLST Status: DNR Meds/Allgy - Home Medications Home Medications: Ambulatory Orders Medication Instructions Recorded Confirmed Glipizide [Glipizide Xl] 5 mg PO DAILY MDD hold if BS < 120 10/09/14 05/29/21 Atorvastatin [Lipitor] 40 mg PO DAILY 06/20/20 05/29/21 SITagliptin [Januvia] 100 mg PO DAILY 06/20/20 05/29/21 Aspirin Chewable [St Swapnil 1 tab PO DAILY 09/19/20 05/29/21 Aspirin] ondansetron HCL [Zofran] 4 mg PO Q6HR PRN #30 tab 11/13/20 05/29/21 Cabozantinib S-Malate [Cometriq] 60 mg PO DAILY MDD HOLD 04/05/21 05/29/21 Metoprolol Succinate [Toprol Xl] 12.5 mg PO DAILY 05/22/21 05/29/21 lisinopriL [Zestril] 5 mg PO DAILY MDD hold if b/p , 05/22/21 05/29/21 110/60 Ciprofloxacin [Cipro] 250 mg PO Q12H 5 Days #10 tablet 05/24/21 05/29/21 MDD finishes 05/29 dexAMETHasone [Decadron] 2 mg PO DAILY 7 Days #14 tablet 05/24/21 05/29/21 Docusate Sodium [Stool Softener] 250 mg PO DAILY 05/29/21 05/29/21 - Allergies Allergies/Adverse Reactions: Allergies Allergy/AdvReac Type Severity Reaction Status Date / Time No Known Drug Allergies Allergy Verified 05/22/21 09:53 Review of Systems - Constitutional Constitutional: reports: Fatigue, Chills, Weakness, Poor appetite, Weight loss - Ears, Nose & Throat Ears, Nose & Throat: reports: Sore throat (post cough soreness), Hoarseness - Cardiovascular Cariovascular: denies: Chest pain - Respiratory Respiratory: reports: Cough, Sputum production, Hemoptysis (since 2pm today) - Integumentary Integumentary: reports: Other (Denies bed sores). denies: Lesions Prior Level of Functionality: Previously was independent with all ADLs but has declined since February. Now is bedbound and receives bathing, OT/PT help through [facility]. Exam - Vital Signs Reviewed Vital Signs: Yes Vital Signs: Vital Signs x48h Temp Pulse Resp BP Pulse Ox 05/31/21 22:05 108 H 24 101/82 H 94 05/31/21 21:28 107 H 23 148/76 H 99 05/31/21 20:27 108 H 97 05/31/21 20:20 108 H 22 101/73 93 05/31/21 20:01 123 H 24 123/78 88 L 05/31/21 19:53 120 H 24 108/77 05/31/21 19:25 120 H 24 100/82 H 92 05/31/21 19:15 37 C 125 H 22 100/82 H 92 - Physical Exam General Appearance: positive: No acute distress, Other (Pale cachectic white elderly male resting in hospital bed under piles of blankets) Eyes Bilateral: positive: EOMI, No lid inflammation ENT: positive: No signs of dehydration Respiratory: positive: Chest non-tender, No respiratory distress Cardiovascular: positive: Regular rate & rhythm, No murmur, No gallop Abdomen: positive: Non-tender. negative: No distention, Guarding, Mass Skin: positive: Pallor Extremities: positive: No pedal edema, Other (Cold, cachectic extremities) Neurologic/Psychiatric: positive: Oriented x3 Conclusion/Plan - Problem List (1) Major hemoptysis Conclusion/Plan: Patient has been coughing up 2 palm surface area worth off blood. Likely s/t his mets to lung but an infectious cause remains on differential. When these c oughing fits occurs, he states he can't stop for >10 minutes and has to spit it out before he chokes on it. Will continue to monitor coughing, give fluids for supportive treatment, and treat conservatively with azithromycin. (2) Ground glass opacity present on imaging of lung Conclusion/Plan: Due to increased sputum production and intractable coughing spells, viral pneumonia and atypical pneumonia remain on differential. Will treat with azithromycin and supportive care including IV fluids and monitor vitals and labs. (3) Renal cell carcinoma Conclusion/Plan: Patient has known metastatic disease. Continue supportive treatment and pain control. Will continue conversation on end of life planning with patient, son, and , and possibly social work. Discussed options of home hospice or hospice facility and family is going to discuss. (4) Generalized weakness Conclusion/Plan: Patient is currently bed bound at home secondary to his progressive metastatic cancer. Will consider functional limitations in conversations regarding end of life. (5) Diabetes mellitus Conclusion/Plan: Will monitor blood sugars qid. Treat with lantus and sliding scale lispro. Qualifiers: Diabetes mellitus type: type 2 Diabetes mellitus computer terminal operator insulin use: without computer terminal operator use Diabetes mellitus complication status: without complication Qualified Code(s): E11.9 - Type 2 diabetes mellitus without complications - Lab Results Fish Bones: 05/31/21 19:43 05/31/21 19:43 - Diagnostic Imaging Results Diagnostic Imaging Results: positive: Final report reviewed Core Measures - Anticipated LOS I expect patient to be DC'd or transferred within 96 hours.: Yes - Issues Hospital Issues and Management Plan: Plan to monitor for further hemoptysis, give fluids/antibiotics for possible infectious cause of coughing, and monitor vital signs and labs. Will continue to discuss - DVT/VTE - Prophylaxis VTE/DVT Device ordered at admit?: Yes VTE/DVT Prophylaxis med ordered at admit?: No Not Ordered - Medical Reason: Contraindicated (due to hemoptysis)
[2021-05-31] MEDS: SODIUM CHLORIDE 0.9% 1,000 ML IV SCH (23:00)
[2021-06-01] MEDS: SODIUM CHLORIDE FLUSH 0.9% 10 ML SYRINGE IVP SCH ×3 (01:18→16:55)
[2021-06-01 05:16] LABS: HCT - HEMATOCRIT 32.9 % (42.0-52.0); HGB - HEMOGLOBIN 10.3 g/dL (14.0-18.0); MEAN CORPUSCULAR HEMOGLOBIN 25.6 pg (27.0-31.0); MEAN CORPUSCULAR HGB CONC 31.3 g/dL (32.0-36.0); MEAN CORPUSCULAR VOLUME 81.8 fL (80.0-94.0); MEAN PLATELET VOLUME 8.2 fL (7.4-11.4); RED BLOOD COUNT 4.02 10^6/uL (4.70-6.10); WHITE BLOOD COUNT 3.5 x10^3/uL (4.8-10.8)
[2021-06-01 05:25] LABS: CALCIUM 7.9 mg/dL (8.5-10.3); CREATININE 0.6 mg/dL (0.6-1.2); POTASSIUM 3.4 mmol/L (3.5-5.0)
[2021-06-01 07:31] LABS: HCT - HEMATOCRIT 32.6 % (42.0-52.0); HGB - HEMOGLOBIN 10.4 g/dL (14.0-18.0); MEAN CORPUSCULAR HEMOGLOBIN 25.9 pg (27.0-31.0); MEAN CORPUSCULAR HGB CONC 31.9 g/dL (32.0-36.0); MEAN CORPUSCULAR VOLUME 81.3 fL (80.0-94.0); MEAN PLATELET VOLUME 7.9 fL (7.4-11.4); RED BLOOD COUNT 4.01 10^6/uL (4.70-6.10); WHITE BLOOD COUNT 3.1 x10^3/uL (4.8-10.8)
[2021-06-01] MEDS: INSULIN ASPART 300 UNIT/3 ML PEN SUBQ SCH ×4 (07:34→20:57)
--- NOTE | 2021-06-01 08:21 | PHARMACY PROGRESS NOTE ---
- Best Possible Medication History Admit Date and Time: 05/31/212201 Processed by: Pharmacy Medication History completed: Yes Secondary Source(s): Previous admit records As the person ultimately responsible for medication therapy, providers are able to order a medication from an existing home medication list in [facility] via the "Reconcile Routine" prior to Confirmation of that medication by sales support coordinator. Such practice is discouraged except when the physician, in their clinical judgment, deems that a medical need exists for a medication without regard to previous use.
[2021-06-01] MEDS: cefTRIAXone 2 GM in SODIUM CHLORIDE 0.9% MINIBAG 100 ML IV SCH (08:40)
[2021-06-01] MEDS: SODIUM CHLORIDE 0.9% 1,000 ML IV SCH (08:46)
[2021-06-01 13:01] LABS: HCT - HEMATOCRIT 34.3 % (42.0-52.0); HGB - HEMOGLOBIN 10.8 g/dL (14.0-18.0); MEAN CORPUSCULAR HGB CONC 31.5 g/dL (32.0-36.0); MEAN CORPUSCULAR VOLUME 82.5 fL (80.0-94.0); MEAN PLATELET VOLUME 7.8 fL (7.4-11.4); RED BLOOD COUNT 4.16 10^6/uL (4.70-6.10); RED CELL DISTRIBUTION WIDTH 22.2 % (12.0-15.0); WHITE BLOOD COUNT 3.5 x10^3/uL (4.8-10.8)
--- NOTE | 2021-06-01 17:58 | PROVIDER PROGRESS NOTE ---
Progress Note I sat down briefly today with the patient's son and as the patient was asleep and they wanted him to get some rest. We discussed his current medical condition and overall prognosis given metastatic cancer. The family is aware that his overall prognosis is quite poor and they feel that he is ready to focus on his comfort. They would like me to discuss this with the patient either later today or tomorrow after this is done with him further. We will do advance care planning at that time. I discussed with the patient's son and that options include home with hospice or hospice at a facility. If his symptoms cannot be managed at home then we could consider GIP. Their biggest concern is if he begins to vomit a significant amount of blood while at home where he feels like he is suffocating and his symptoms can be managed. We discussed this is where GIP could play a role. The pan cleaner will round on the patient this evening and I will plan for advance care planning with the patient and his family tomorrow. In the interim we will continue antibiotics for community-acquired pneumonia and continue to wean his oxygen as tolerated.
[2021-06-01 18:58] LABS: HCT - HEMATOCRIT 32.2 % (42.0-52.0); HGB - HEMOGLOBIN 10.2 g/dL (14.0-18.0); MEAN CORPUSCULAR HGB CONC 31.7 g/dL (32.0-36.0); MEAN CORPUSCULAR VOLUME 82.1 fL (80.0-94.0); MEAN PLATELET VOLUME 7.9 fL (7.4-11.4); RED BLOOD COUNT 3.92 10^6/uL (4.70-6.10); RED CELL DISTRIBUTION WIDTH 22.2 % (12.0-15.0); WHITE BLOOD COUNT 3.5 x10^3/uL (4.8-10.8)
--- NOTE | 2021-06-01 19:55 | PROVIDER PROGRESS NOTE ---
Subjective - Prog Note Date Prog Note Date: 06/01/21 Prog Note Time: 20:36 - Subjective Pt reports feeling: Improved (He has not had any episodes of hemoptysis today. He has had to cough but no blood clots.) Subjective: The patient has had a better day today and has not had any more hemoptysis. He states that he has coughed a bit but no blood has come up. He "kept waiting for the big clots" but was pleased to not have any. He denies any pain. His and son are at bedside. They report that they received a list of hospice home health contacts and are going to start calling around. They are hoping to go home Thursday with hospice at home. Current Medications - Current Medications Current Medications: Active Medications Acetaminophen (Acetaminophen 325 Mg Tablet) 650 mg PO Q4HR PRN PRN Reason: Pain 1 to 4, or Fever Azithromycin 500 mg/ Sodium (Chloride) 250 mls @ 250 mls/hr IV HS [facility] Stop: 06/02/21 21:59 Ceftriaxone Sodium 2 gm/ (Sodium Chloride) 100 mls @ 200 mls/hr IV DAILY [facility] Stop: 06/05/21 09:29 Last Infusion: 06/01/21 09:10 Dose: Infused Insulin Aspart (Insulin Aspart 300 Unit/3 Ml Pen) 1 - 5 unit SUBQ 0 800,1200,1700,2100 [facility]; Protocol Last Admin: 06/01/21 16:55 Dose: 1 unit Insulin Glargine (Insulin Glargine 300 Unit/3 Ml Pen) 5 unit SUBQ QPM [facility] Ondansetron HCl (Ondansetron 4 Mg/2 Ml Vial) 4 mg IVP Q6HR PRN PRN Reason: Nausea / Vomiting Oxycodone HCl (Oxycodone 5 Mg Tablet) 5 mg PO Q4HR PRN PRN Reason: Pain 5 to 7 Sodium Chloride (Sodium Chloride Flush 0.9% 10 Ml Syringe) 10 ml IVP PRN PRN PRN Reason: NEEDED PER PROVIDER ORDERS Sodium Chloride (Sodium Chloride Flush 0.9% 10 Ml Syringe) 10 ml IVP 0100,0900,1700 [facility] Last Admin: 06/01/21 16:55 Dose: Not Given Glipizide [Glipizide Xl] 5 mg PO DAILY MDD hold if BS < 120 10/09/14 Atorvastatin [Lipitor] 40 mg PO DAILY 06/20/20 SITagliptin [Januvia] 100 mg PO DAILY 06/20/20 Aspirin Chewable [St Swapnil Aspirin] 81 mg PO DAILY 09/19/20 Metoprolol Succinate [Toprol Xl] 12.5 mg PO DAILY 05/22/21 lisinopriL [Zestril] 5 mg PO DAILY MDD hold if b/p , 110/60 05/22/21 Docusate Sodium [Stool Softener] 250 mg PO DAILY 05/29/21 Objective - Vital Signs/Intake & Output Reviewed Vital Signs: Yes Vital Signs: Vital Signs x48h Temp Pulse Resp BP Pulse Ox 06/01/21 15:52 36.8 C 97 16 107/68 97 Intake & Output: Intake & Output 05/29/21 05/30/21 05/31/21 06/01/21 23:59 23:59 23:59 23:59 Intake Total 250 1646.667 Balance 250 1646.667 - Objective General Appearance: positive: No acute distress (Pale, cachectic elderly gentleman lying in hospital bed with nasal cannula) Eyes Bilateral: positive: EOMI Respiratory: positive: Chest non-tender, No respiratory distress, Other (did not cough throughout exam). negative: Wheezes, Rales, Rhonchi Cardiovascular: positive: Regular rate & rhythm. negative: No murmur, No gallop, Tachycardia Peripheral Pulses: 2+ Posterior tibialis (R), 2+ Posterior tibialis (L) Abdomen: positive: Non-tender, No distention Skin: positive: Pallor Extremities: positive: Non-tender, No pedal edema Neurologic/Psychiatric: positive: Oriented x3 - Lab Results Fish Bones: 06/01/21 18:48 06/01/21 04:35 Other Labs: Lab Results x24hrs 06/01/21 06/01/21 06/01/21 Range/Units 18:48 12:56 07:02 WBC 3.5 L 3.5 L 3.1 L (4.8-10.8) x10^3/uL RBC 3.92 L 4.16 L 4.01 L (4.70-6.10) 10^6/uL Hgb 10.2 L 10.8 L 10.4 L (14.0-18.0) g/dL Hct 32.2 L 34.3 L 32.6 L (42.0-52.0) % MCV 82.1 82.5 81.3 (80.0-94.0) fL MCH 26.0 L 26.0 L 25.9 L (27.0-31.0) pg MCHC 31.7 L 31.5 L 31.9 L (32.0-36.0) g/dL RDW 22.2 H 22.2 H 22.0 H (12.0-15.0) % Plt Count 175 181 174 (130-450) 10^3/uL MPV 7.9 7.8 7.9 (7.4-11.4) fL Neut # (Auto) (1.5-6.6) 10^3/uL Lymph # (Auto) (1.5-3.5) 10^3/uL Pickens # (Auto) (0.0-1.0) 10^3/uL Eos # (Auto) (0.0-0.7) 10^3/uL Baso # (Auto) (0.0-0.1) 10^3/uL Absolute Nucleated RBC x10^3/uL Nucleated RBC % /100WBC Manual Slide Review Platelet Estimate (NORMAL) Platelet Morphology (NORMAL) RBC Morph Micro Appear (NORMAL) PT (9.9-12.6) secs INR (0.8-1.2) Sodium (135-145) mmol/L Potassium (3.5-5.0) mmol/L Chloride (101-111) mmol/L Carbon Dioxide (21-32) mmol/L Anion Gap (6-13) BUN (6-20) mg/dL Creatinine (0.6-1.2) mg/dL Estimated GFR (MDRD) (>89) Glucose (70-100) mg/dL Calcium (8.5-10.3) mg/dL Magnesium (1.7-2.8) mg/dL Total Bilirubin (0.2-1.0) mg/dL AST (10-42) IU/L ALT (10-60) IU/L Alkaline Phosphatase (42-121) IU/L Troponin I High Sens (2.3-19.7) ng/L Total Protein (6.7-8.2) g/dL Albumin (3.2-5.5) g/dL Globulin (2.1-4.2) g/dL Albumin/Globulin Ratio (1.0-2.2) Nasal Adenovirus (PCR) Nasal B. parapertussis DNA (PCR) Nasal Coronavir 229E PCR Nasal Coronavir HKU1 PCR Nasal Coronavir NL63 PCR Nasal Coronavir OC43 PCR Nasal Enterovir/Rhinovir PCR Nasal Influenza B PCR Nasal Influenza A PCR Nasal Parainfluen 1 PCR Nasal Parainfluen 2 PCR Nasal Parainfluen 3 PCR Nasal Parainfluen 4 PCR Nasal RSV (PCR) Nasal B.pertussis DNA PCR Nasal C.pneumoniae (PCR) Chon Human Metapneumo PCR Nasal M.pneumoniae (PCR) Nasal SARS-CoV-2 (PCR) Ethyl Alcohol mg/dL Blood Type Blood Type Recheck Antibody Screen 06/01/21 06/01/21 05/31/21 Range/Units 04:35 04:35 19:43 WBC 3.5 L (4.8-10.8) x10^3/uL RBC 4.02 L (4.70-6.10) 10^6/uL Hgb 10.3 L (14.0-18.0) g/dL Hct 32.9 L (42.0-52.0) % MCV 81.8 (80.0-94.0) fL MCH 25.6 L (27.0-31.0) pg MCHC 31.3 L (32.0-36.0) g/dL RDW 22.0 H (12.0-15.0) % Plt Count 190 (130-450) 10^3/uL MPV 8.2 (7.4-11.4) fL Neut # (Auto) (1.5-6.6) 10^3/uL Lymph # (Auto) (1.5-3.5) 10^3/uL Pickens # (Auto) (0.0-1.0) 10^3/uL Eos # (Auto) (0.0-0.7) 10^3/uL Baso # (Auto) (0.0-0.1) 10^3/uL Absolute Nucleated RBC x10^3/uL Nucleated RBC % /100WBC Manual Slide Review Platelet Estimate (NORMAL) Platelet Morphology (NORMAL) RBC Morph Micro Appear (NORMAL) PT (9.9-12.6) secs INR (0.8-1.2) Sodium 135 (135-145) mmol/L Potassium 3.4 L (3.5-5.0) mmol/L Chloride 101 (101-111) mmol/L Carbon Dioxide 27 (21-32) mmol/L Anion Gap 7.0 (6-13) BUN 13 (6-20) mg/dL Creatinine 0.6 (0.6-1.2) mg/dL Estimated GFR (MDRD) 132 (>89) Glucose 106 H (70-100) mg/dL Calcium 7.9 L (8.5-10.3) mg/dL Magnesium (1.7-2.8) mg/dL Total Bilirubin (0.2-1.0) mg/dL AST (10-42) IU/L ALT (10-60) IU/L Alkaline Phosphatase (42-121) IU/L Troponin I High Sens (2.3-19.7) ng/L Total Protein (6.7-8.2) g/dL Albumin (3.2-5.5) g/dL Globulin (2.1-4.2) g/dL Albumin/Globulin Ratio (1.0-2.2) Nasal Adenovirus (PCR) Nasal B. parapertussis DNA (PCR) Nasal Coronavir 229E PCR Nasal Coronavir HKU1 PCR Nasal Coronavir NL63 PCR Nasal Coronavir OC43 PCR Nasal Enterovir/Rhinovir PCR Nasal Influenza B PCR Nasal Influenza A PCR Nasal Parainfluen 1 PCR Nasal Parainfluen 2 PCR Nasal Parainfluen 3 PCR Nasal Parainfluen 4 PCR Nasal RSV (PCR) Nasal B.pertussis DNA PCR Nasal C.pneumoniae (PCR) Chon Human Metapneumo PCR Nasal M.pneumoniae (PCR) Nasal SARS-CoV-2 (PCR) Ethyl Alcohol mg/dL Blood Type A POSITIVE Blood Type Recheck Antibody Screen NEGATIVE 05/31/21 05/31/21 05/31/21 Range/Units 19:43 19:43 19:43 WBC (4.8-10.8) x10^3/uL RBC (4.70-6.10) 10^6/uL Hgb (14.0-18.0) g/dL Hct (42.0-52.0) % MCV (80.0-94.0) fL MCH (27.0-31.0) pg MCHC (32.0-36.0) g/dL RDW (12.0-15.0) % Plt Count (130-450) 10^3/uL MPV (7.4-11.4) fL Neut # (Auto) (1.5-6.6) 10^3/uL Lymph # (Auto) (1.5-3.5) 10^3/uL Pickens # (Auto) (0.0-1.0) 10^3/uL Eos # (Auto) (0.0-0.7) 10^3/uL Baso # (Auto) (0.0-0.1) 10^3/uL Absolute Nucleated RBC x10^3/uL Nucleated RBC % /100WBC Manual Slide Review Platelet Estimate (NORMAL) Platelet Morphology (NORMAL) RBC Morph Micro Appear (NORMAL) PT 13.1 H (9.9-12.6) secs INR 1.2 (0.8-1.2) Sodium 135 (135-145) mmol/L Potassium 3.5 (3.5-5.0) mmol/L Chloride 95 L (101-111) mmol/L Carbon Dioxide 29 (21-32) mmol/L Anion Gap 11.0 (6-13) BUN 14 (6-20) mg/dL Creatinine 0.8 (0.6-1.2) mg/dL Estimated GFR (MDRD) 94 (>89) Glucose 165 H (70-100) mg/dL Calcium 8.4 L (8.5-10.3) mg/dL Magnesium 1.8 (1.7-2.8) mg/dL Total Bilirubin 0.4 (0.2-1.0) mg/dL AST 34 (10-42) IU/L ALT 46 (10-60) IU/L Alkaline Phosphatase 76 (42-121) IU/L Troponin I High Sens 8.6 (2.3-19.7) ng/L Total Protein 6.6 L (6.7-8.2) g/dL Albumin 2.3 L (3.2-5.5) g/dL Globulin 4.3 H (2.1-4.2) g/dL Albumin/Globulin Ratio 0.5 L (1.0-2.2) Nasal Adenovirus (PCR) Nasal B. parapertussis DNA (PCR) Nasal Coronavir 229E PCR Nasal Coronavir HKU1 PCR Nasal Coronavir NL63 PCR Nasal Coronavir OC43 PCR Nasal Enterovir/Rhinovir PCR Nasal Influenza B PCR Nasal Influenza A PCR Nasal Parainfluen 1 PCR Nasal Parainfluen 2 PCR Nasal Parainfluen 3 PCR Nasal Parainfluen 4 PCR Nasal RSV (PCR) Nasal B.pertussis DNA PCR Nasal C.pneumoniae (PCR) Chon Human Metapneumo PCR Nasal M.pneumoniae (PCR) Nasal SARS-CoV-2 (PCR) Ethyl Alcohol < 5.0 mg/dL Blood Type Blood Type Recheck Antibody Screen 05/31/21 05/31/21 05/31/21 Range/Units 19:43 19:30 04:35 WBC (4.8-10.8) x10^3/uL RBC (4.70-6.10) 10^6/uL Hgb (14.0-18.0) g/dL Hct (42.0-52.0) % MCV (80.0-94.0) fL MCH (27.0-31.0) pg MCHC (32.0-36.0) g/dL RDW (12.0-15.0) % Plt Count (130-450) 10^3/uL MPV (7.4-11.4) fL Neut # (Auto) 2.2 (1.5-6.6) 10^3/uL Lymph # (Auto) 1.3 L (1.5-3.5) 10^3/uL Pickens # (Auto) 0.3 (0.0-1.0) 10^3/uL Eos # (Auto) 0.1 (0.0-0.7) 10^3/uL Baso # (Auto) 0.0 (0.0-0.1) 10^3/uL Absolute Nucleated RBC 0.00 x10^3/uL Nucleated RBC % 0.0 /100WBC Manual Slide Review Indicated Platelet Estimate NORMAL (130-450,000) (NORMAL) Platelet Morphology NORMAL APPEARANCE (NORMAL) RBC Morph Micro Appear 2+ ANISOCYTOSIS (NORMAL) PT (9.9-12.6) secs INR (0.8-1.2) Sodium (135-145) mmol/L Potassium (3.5-5.0) mmol/L Chloride (101-111) mmol/L Carbon Dioxide (21-32) mmol/L Anion Gap (6-13) BUN (6-20) mg/dL Creatinine (0.6-1.2) mg/dL Estimated GFR (MDRD) (>89) Glucose (70-100) mg/dL Calcium (8.5-10.3) mg/dL Magnesium (1.7-2.8) mg/dL Total Bilirubin (0.2-1.0) mg/dL AST (10-42) IU/L ALT (10-60) IU/L Alkaline Phosphatase (42-121) IU/L Troponin I High Sens (2.3-19.7) ng/L Total Protein (6.7-8.2) g/dL Albumin (3.2-5.5) g/dL Globulin (2.1-4.2) g/dL Albumin/Globulin Ratio (1.0-2.2) Nasal Adenovirus (PCR) NOT DETECTED Nasal B. parapertussis DNA (PCR) NOT DETECTED Nasal Coronavir 229E PCR NOT DETECTED Nasal Coronavir HKU1 PCR NOT DETECTED Nasal Coronavir NL63 PCR NOT DETECTED Nasal Coronavir OC43 PCR NOT DETECTED Nasal Enterovir/Rhinovir PCR NOT DETECTED Nasal Influenza B PCR NOT DETECTED Nasal Influenza A PCR NOT DETECTED Nasal Parainfluen 1 PCR NOT DETECTED Nasal Parainfluen 2 PCR NOT DETECTED Nasal Parainfluen 3 PCR NOT DETECTED Nasal Parainfluen 4 PCR NOT DETECTED Nasal RSV (PCR) NOT DETECTED Nasal B.pertussis DNA PCR NOT DETECTED Nasal C.pneumoniae (PCR) NOT DETECTED Chon Human Metapneumo PCR NOT DETECTED Nasal M.pneumoniae (PCR) NOT DETECTED Nasal SARS-CoV-2 (PCR) NOT DETECTED Ethyl Alcohol mg/dL Blood Type Blood Type Recheck A POSITIVE Antibody Screen Assessment/Plan - Problem List (1) Major hemoptysis Impression: No acute episodes of hemopsysis today. Likely due to metastatic cancer eroding pulmonary vessels as seen on CAT scan. Will continue with IV fluids, abx, and pain control. (2) Ground glass opacity present on imaging of lung Impression: Likely due to mets to lungs, but infectious cause cannot be rule out. Today he has repiratory distress and lungs clear to auscultation. Will continue with IV fluids and abx and monitor vitals and labs. (3) Renal cell carcinoma Impression: Patient is experiencing decline from known mets to lungs and adrenals. Family and patient are agreeable to focus on comfort measures is planning for home hospice care. (4) Generalized weakness Impression: Secondary too decline from metastatic renal cell carcinoma. Family and patient are agreeable to focusing on comfort and are planning for home hospice. They have been given a list of possible contacts and will begin to reach out to the with hopeful discharge for thursday. (5) Diabetes mellitus Impression: Continue qid blood sugar checks, lantus, and sliding scale lispro. Qualifiers: Diabetes mellitus type: type 2 Diabetes mellitus correction insulin use: without intermediate designer use Diabetes mellitus complication status: without complication Qualified Code(s): E11.9 - Type 2 diabetes mellitus without complications
[2021-06-01] MEDS ORDERED: AZITHROMYCIN INJ 500 MG in SODIUM CHLORIDE 0.9% 250 ML IV SCH (21:00)
[2021-06-01] MEDS ORDERED: INSULIN GLARGINE 300 UNIT/3 ML PEN SUBQ SCH (21:00)
[2021-06-02] MEDS: SODIUM CHLORIDE FLUSH 0.9% 10 ML SYRINGE IVP SCH ×4 (01:45→23:35)
[2021-06-02] MEDS: ZINC OXIDE 20% OINT 30 GM TUBE TOP PRN ×2 (05:26→23:38)
[2021-06-02] MEDS: INSULIN ASPART 300 UNIT/3 ML PEN SUBQ SCH (09:12)
[2021-06-02] MEDS: cefTRIAXone 2 GM in SODIUM CHLORIDE 0.9% MINIBAG 100 ML IV SCH (09:21)
[2021-06-02] MEDS ORDERED: guaiFENesin/CODEINE 5 ML UDC PO PRN (11:27)
[2021-06-02] MEDS ORDERED: MORPHINE SOL 10 MG/0.5 ML ORAL SYRINGE PO PRN (12:11)
[2021-06-02] MEDS ORDERED: LORazepam 0.5 MG TABLET SL PRN (12:11)
[2021-06-02] MEDS ORDERED: BENZONATATE 100 MG CAPSULE PO PRN (12:12)
--- NOTE | 2021-06-02 12:12 | ADVANCE CARE PLANNING NOTE ---
Advance Care Planning - Planning Encounter Date: 06/02/21 Time: 11:50 Purpose: To clarify goals of care. Parties in Attendance: The patient, his , his son, and myself. Decisional Capacity of the Patient: He has the ability to make his own medical decisions. - Diagnosis for Encounter (1) Pulmonary metastasis Summary: This is unfortunately the cause of his hemoptysis. We have since held his aspirin and he has not had any further episodes of hemoptysis. He remains hypoxic requiring 2 to 3 L of oxygen via nasal cannula. - Encounter Subjective/Patient's Story: He is and has one child who lives in [place]. He was previously in the [facility]. He has had progressive functional decline to the point where they got a hospital bed for the patient at home as well as wheelchair. He is now predominantly bedbound and his family has been his primary caregivers. 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 Follow-up CT of the chest revealed pulmonary metastasis. He has received treatment with induction immunotherapy with ipilimumab/nivolumab. He was then later treated with cabozantinib. He was hospitalized last week with sepsis due to UTI. He now presents with hemoptysis secondary to pulmonary metastasis and imaging is concerning for invasion of the pulmonary vessels. There was concern potential pneumonia and he was hypoxic so he was admitted for IV antibiotics. He has since had no further episodes of head hemoptysis and appears much more comfortable. Goals of Care: He would like to focus on his comfort at this point and he does not want to be a burden for his family. His biggest concern as well as his family's is the hemoptysis and what would happen if he had large amounts of stress at home or if the cancer invaded his pulmonary blood vessels. Plan: The plan at this time is to focus on his comfort and transition to hospice. We will discontinue antibiotics and we will not be checking labs. We will start him on morphine and lorazepam as needed. We will start him on Ritalin/codeine to help suppress his cough as the biggest concern for the patient is the hemoptysis. I have spoken with the hospice aide and they will let us know tomorrow regarding when they can admit the patient. He already has a hospital bed at home. Additional Discussion: We discussed the role of hospice and the fact that the should consider hiring caregivers to decrease the burden on the patient's family. We discussed what potential options are may be the patient was to develop significant emesis such as GIP admission. We also discussed the concern that if there was significant invasion of the pulmonary arteries due to the cancer then this would likely read to rapid deterioration due to blood loss. Code Status: Do Not Attempt Resuscitation Time spent on advance care plannin
--- NOTE | 2021-06-02 12:12 | PROVIDER PROGRESS NOTE ---
Subjective - Prog Note Date Prog Note Date: 06/02/21 - Subjective Subjective: He feels comfortable and denies any shortness of breath at this time. Has not had any more blood-tinged sputum or hemoptysis. Only has a mild cough. He has made his decision about going home with hospice and his goal is to focus on his comfort. Current Medications - Current Medications Current Medications: Active Medications Acetaminophen (Acetaminophen 325 Mg Tablet) 650 mg PO Q4HR PRN PRN Reason: Pain 1 to 4, or Fever Benzonatate (Benzonatate 100 Mg Capsule) 100 mg PO TID PRN PRN Reason: Cough Dexamethasone (Dexamethasone 4 Mg Tablet) 4 mg PO BIDWM [facility] Guaifenesin/Codeine Phosphate (Guaifenesin/Codeine 5 Ml Udc) 5 ml PO Q6HR PRN PRN Reason: Cough Insulin Aspart (Insulin Aspart 300 Unit/3 Ml Pen) 1 - 5 unit SUBQ 0800,1200,1700,2100 [facility]; Protocol Last Admin: 06/02/21 09:12 Dose: Not Given Insulin Glargine (Insulin Glargine 300 Unit/3 Ml Pen) 5 unit SUBQ QPM [facility] Last Admin: 06/01/21 20:58 Dose: 5 unit Lorazepam (Lorazepam 0.5 Mg Tablet) 1 mg SL Q6H PRN PRN Reason: Anxiety Morphine Sulfate (Morphine Marley 10 Mg/0.5 Ml Oral Syringe) 5 mg PO Q2HR PRN PRN Reason: NEEDED PER PROVIDER ORDERS Multi-Ingredient Ointment (Zinc Oxide 20% Oint 30 Gm Tube) 1 applic TOP PRN PRN PRN Reason: Skin Care Last Admin: 06/02/21 05:26 Dose: 1 applic Ondansetron HCl (Ondansetron 4 Mg/2 Ml Vial) 4 mg IVP Q6HR PRN PRN Reason: Nausea / Vomiting Oxycodone HCl (Oxycodone 5 Mg Tablet) 5 mg PO Q4HR PRN PRN Reason: Pain 5 to 7 Sodium Chloride (Sodium Chloride Flush 0.9% 10 Ml Syringe) 10 ml IVP PRN PRN PRN Reason: NEEDED PER PROVIDER ORDERS Sodium Chloride (Sodium Chloride Flush 0.9% 10 Ml Syringe) 10 ml IVP 0100,0900,1700 [facility] Last Admin: 06/02/21 09:22 Dose: 10 ml Glipizide [Glipizide Xl] 5 mg PO DAILY MDD hold if BS < 120 10/09/14 Atorvastatin [Lipitor] 40 mg PO DAILY 06/20/20 SITagliptin [Januvia] 100 mg PO DAILY 06/20/20 Aspirin Chewable [St Swapnil Aspirin] 81 mg PO DAILY 09/19/20 Metoprolol Succinate [Toprol Xl] 12.5 mg PO DAILY 05/22/21 lisinopriL [Zestril] 5 mg PO DAILY MDD hold if b/p , 110/60 05/22/21 Docusate Sodium [Stool Softener] 250 mg PO DAILY 05/29/21 Objective - Vital Signs/Intake & Output Reviewed Vital Signs: Yes Vital Signs: Vital Signs x48h Temp Pulse Resp BP Pulse Ox 06/02/21 08:00 36.9 C 83 16 107/64 98 Intake & Output: Intake & Output 05/30/21 05/31/21 06/01/21 06/02/21 23:59 23:59 23:59 23:59 Intake Total 250 3146.667 340 Balance 250 3146.667 340 - Objective General Appearance: positive: No acute distress, Alert Eyes Bilateral: positive: Normal inspection, Conjunctivae nml ENT: positive: ENT inspection nml, Other (Nasal cannula in place.) Neck: positive: Nml inspection Respiratory: positive: No respiratory distress, Other (Diminished.) Cardiovascular: positive: Regular rate & rhythm. negative: Tachycardia Skin: positive: Warm, Dry Extremities: positive: No pedal edema, Other (Significant muscular atrophy in the lower extremities.) Neurologic/Psychiatric: negative: Disoriented to person, Disoriented to place - Lab Results Fish Bones: 06/01/21 18:48 06/01/21 04:35 Other Labs: Lab Results x24hrs 06/01/21 06/01/21 Range/Units 18:48 12:56 WBC 3.5 L 3.5 L (4.8-10.8) x10^3/uL RBC 3.92 L 4.16 L (4.70-6.10) 10^6/uL Hgb 10.2 L 10.8 L (14.0-18.0) g/dL Hct 32.2 L 34.3 L (42.0-52.0) % MCV 82.1 82.5 (80.0-94.0) fL MCH 26.0 L 26.0 L (27.0-31.0) pg MCHC 31.7 L 31.5 L (32.0-36.0) g/dL RDW 22.2 H 22.2 H (12.0-15.0) % Plt Count 175 181 (130-450) 10^3/uL MPV 7.9 7.8 (7.4-11.4) fL ABX Reporting Has patient been on IV antibiotics over the past 48 hours?: Yes Assessment/Plan - Problem List (1) Acute respiratory failure with hypoxia Impression: This is likely secondary to the pulmonary mets. There was concern for potential pneumonia and he was treated with IV antibiotics. He remains on 2 to 3 L of oxygen via nasal cannula. The goal is not to focus on his comfort and so antibiotics have been discontinued. We will continue with supplemental oxygen as needed. We will start morphine as needed. We will use Robitussin/codeine for cough suppressant. The plan is to try and get him home on hospice tomorrow. (2) Major hemoptysis Impression: This is secondary to the pulmonary mets. He has had no more evidence of he moptysis or blood-tinged sputum over the past 24 hours. We will treat his cough with Robitussin/codeine and Tessalon as needed. Aspirin has been discontinued. (3) Ground glass opacity present on imaging of lung Impression: This was concerning for potential pneumonia. But this is more likely to be related to pulmonary metastasis. He had been on ceftriaxone and azithromycin and now it is discontinued as the goal is to focus on his comfort. (4) Pulmonary metastasis Impression: This is the cause of his hemoptysis. Plan as mentioned above with a focus on comfort. (5) Renal cell carcinoma Impression: This has metastasized to the lung. He has had functional decline and is no longer on immunotherapy. He decided to focus on his comfort and the goal is to discharge him home on hospice. (6) Chronic pulmonary embolism Impression: There was evidence of residual chronic pulmonary embolism on the CT angiogram. No anticoagulation or aspirin due to hemoptysis and the focus is now on his comfort. (7) Diabetes mellitus Impression: We have discontinued blood glucose checks given the focus is now on his comfort. Qualifiers: Diabetes mellitus type: type 2 Diabetes mellitus snf insulin use: without watermaster use Diabetes mellitus complication status: without complication Qualified Code(s): E11.9 - Type 2 diabetes mellitus without complications
[2021-06-02] MEDS: dexAMETHasone 4 MG TABLET PO SCH (17:03)
[2021-06-03] MEDS: SODIUM CHLORIDE FLUSH 0.9% 10 ML SYRINGE IVP SCH (08:22)
[2021-06-03] MEDS: dexAMETHasone 4 MG TABLET PO SCH (08:22)
--- NOTE | 2021-06-03 08:41 | Discharge Plan ---
Discharge Plan Problem Reviewed?: Yes Disposition: 50 Hospice/Home DC/Xfer Condition: Fair Prescriptions: Morphine Oral Soln [Roxanol] 5 mg PO Q4HR PRN #15 ml PRN Reason: As Needed Per Provider Orders LORazepam [Ativan] 1 mg PO Q6HR PRN #15 tablet PRN Reason: Anxiety guaiFENesin/CODEINE [Robitussin AC] 5 ml PO Q6HR PRN #1 bottle PRN Reason: Cough dexAMETHasone [Decadron] 4 mg PO BIDWM #60 tablet Benzonatate [Tessalon] 100 mg PO TID PRN #30 cap PRN Reason: Cough Ondansetron Odt [Zofran Odt] 4 mg TL Q6H PRN #10 tablet PRN Reason: Nausea / Vomiting Diet: Regular Health Concerns: You were admitted to the hospital because of bleeding during your coughing episodes as well as concern for pneumonia. We treated you with antibiotics. We did a CT scan of your chest which showed that you had the cancer spread thro ughout your lungs and part of it was close to your blood vessels which can increase your risk of bleeding when coughing. You have since been stable with no further evidence of bleeding. After discussion with you and your family, you have decided to focus on your comfort and transition to hospice. Plan of Treatment: We will be discharging you to home today on hospice. You can stop taking the lisinopril, Januvia, metoprolol, Lipitor, aspirin, glipizide. We will prescribe the Decadron 4 mg twice daily. This may potentially help control the size of the tumor to an extent. We have also prescribed you guaifenesin/codeine which is a cough medication to help decrease the frequency of your cough in hopes of decreasing likelihood of you bleeding. We have also provided you with medications for pain and anxiety to take as needed. Care Goals: The goal is to focus on your comfort. Assessment: The patient and family expressed understanding of the treatment plan. Additional Instructions or Follow Up instructions: Please follow-up with hospice on discharge. If you develop significant bleeding and your symptoms cannot be managed at home then please contact hospice as fredi may benefit from coming back to the hospital for management of your symptoms. Follow-Up Care: Hospice No Smoking: If you smoke, Please STOP! Call for help. Follow-up with: Kamilla Quintana PA-C [Primary Care Provider] -
[2021-06-03] MEDS: ZINC OXIDE 20% OINT 30 GM TUBE TOP PRN (10:00)
--- NOTE | 2021-06-03 10:50 | DISCHARGE SUMMARY ---
Discharge Summary Admit Date: 05/31/21 Discharge Date: 06/03/21 Discharging Provider: Daquan Harris Primary Care Provider: Kamilla Quintana Code Status: Do Not Attempt Resuscitation Condition at Discharge: Fair Discharge Disposition: 50 Hospice/Home DC/Xfer - DIAGNOSES Admission Diagnoses: Major hemoptysis Groundglass opacity present on imaging of lung Renal cell carcinoma Generalized weakness Diabetes mellitus Discharge Diagnoses with Status of Each Condition: Acute respiratory failure with hypoxia - resolved. Major hemoptysis - resolved. Groundglass opacity present on imaging of lung - stable. Pulmonary metastasis - ongoing. Renal cell carcinoma - ongoing. Chronic pulmonary embolism - stable. Diabetes mellitus - stable. 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 Earlier this afternoon he started having a coughing fit and while at first he was coughing up sputum, the sputum then turned into blood. He told ED provider that the quantity of blood was about 2-3 palm surface areas. He denies shortness of breath or fevers but reports chills and "not being able to get warm." He was previously on immunotherapy but stopped it this week after having an encepholapathic response resulting in his hospitalization from 05/22-05/24/21. He had an outpatient palliative care consult with Kay LEVINE on 05/28/21. She notes failure to thrive, declining functional status, and bedbound condition and discussed with family options for future planning. His family has not pursued further advanced care planning at this time. Their RN niece from [place] was previously staying with them for additional support but has now gone home. The niece was concerned for how they will manage when she leaves. Currently, they have PT/OT and shower assistance with [employer] and were able to get a wheelchair and hospital bed at home. The patient lives at home with his who is described in palliative care to be struggling with caring for and supporting the patient in his current state of health. They also have a friend living with them who works during the day as a lasting floorworker but is available at night for hands- on care but they have no other support during the day. Their son flew in from [place] to help out and continue end of life planning. 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 He is also worried about his mom, the patient's . The states during the interview that she "hasn't been making plans because its just so hard to think about." The patient remarks that he is "waiting for the Good Lord to call him home." At the end of the interview, family states that they will continue to discuss plan for end of life and "try to all get on the same page". - HOSPITAL COURSE Hospital Course: The patient was admitted to the floor for acute hypoxic respiratory failure secondary to pulmonary metastasis versus pneumonia. He was treated with ceftriaxone and azithromycin IV. CT angiogram she reveals a chronic pulmonary embolism and significant pulmonary metastasis with concern of invasion of the pulmonary artery. His home aspirin was discontinued and fortunately his hemoptysis resolved. He was able to be weaned off of oxygen over the following days. We discussed with the patient and his family regarding goals of care and ultimately he decided to be discharged home on hospice. Hospice will be admitting him tomorrow. He was provided a prescription for Roxanol and lorazepam to take as needed. He was asked to discontinue the aspirin to dec rease his risk of bleeding. He was also prescribed guaifenesin/codeine and Tessalon Perles to help decrease his cough to reduce his risk of hemoptysis. He was also prescribed Decadron in hopes that this may limit the tumor burden. - ALLERGIES Allergies/Adverse Reactions: Allergies Allergy/AdvReac Type Severity Reaction Status Date / Time No Known Drug Allergies Allergy Verified 05/22/21 09:53 - MEDICATIONS Home Medications: Ambulatory Orders Medication Instructions Recorded Confirmed Benzonatate [Tessalon] 100 mg PO TID PRN #30 cap 06/03/21 Docusate Sodium [Stool Softener] 250 mg PO DAILY #15 cap 06/03/21 06/01/21 LORazepam [Ativan] 1 mg PO Q6HR PRN #15 tablet 06/03/21 Morphine Oral Soln [Roxanol] 5 mg PO Q4HR PRN #15 ml 06/03/21 Ondansetron Odt [Zofran Odt] 4 mg TL Q6H PRN #10 tablet 06/03/21 dexAMETHasone [Decadron] 4 mg PO BIDWM #60 tablet 06/03/21 guaiFENesin/CODEINE [Robitussin AC] 5 ml PO Q6HR PRN #1 bottle 06/03/21 - PHYSICAL EXAM AT DISCHARGE General Appearance: positive: No acute distress, Alert Eyes Bilateral: positive: Normal inspection, Conjunctivae nml ENT: positive: ENT inspection nml Neck: positive: Nml inspection Respiratory: positive: Other (Diminished.). negative: No respiratory distress, Wheezes, Rales Cardiovascular: positive: Tachycardia. negative: Irregularly irregular, Bradycardia, Systolic murmur Abdomen: positive: Non-tender, No distention. negative: Tenderness Skin: positive: Warm, Dry Extremities: positive: No pedal edema Neurologic/Psychiatric: negative: Disoriented to person, Disoriented to place - LABS Result Diagrams: 06/01/21 18:48 06/01/21 04:35 - DIAGNOSTIC IMAGING Diagnostic Imaging Results: Final report reviewed - FOLLOW UP Follow Up: He will be following up with hospice tomorrow. - TIME SPENT Time Spent in Discharge (Minutes): 32
[2021-06-03 12:20] VITALS: BP 111/71
== END 2021-06-03 12:27 | disposition hospice, home (50) | DRG 189 ==
LOC: EDUNIT# → ED 19:09 → MS2 22:02 → OBSVTOIN 06-01 11:36
PROVIDERS: ADMIT Specialist; ATTEND Internal Medicine
PROC: 3E0333Z Introduction of Anti-inflammatory into Peripheral Vein, Percutaneous Approach (ICD-10-PCS; principal; 2021-06-02)
DX: J96.01 Acute respiratory failure with hypoxia (principal); J18.9 Pneumonia, unspecified organism; R04.2 Hemoptysis; J96.91 Respiratory failure, unspecified with hypoxia; R04.89 Hemorrhage from other sites in respiratory passages; Z20.822 Contact with and (suspected) exposure to COVID-19; C64.9 Malignant neoplasm of unspecified kidney, except renal pelvis; C78.00 Secondary malignant neoplasm of unspecified lung; C79.72 Secondary malignant neoplasm of left adrenal gland; C79.71 Secondary malignant neoplasm of right adrenal gland; I27.82 Chronic pulmonary embolism; Z68.1 Body mass index [BMI] 19.9 or less, adult; E11.9 Type 2 diabetes mellitus without complications; I25.10 Atherosclerotic heart disease of native coronary artery without angina pectoris; I10 Essential (primary) hypertension; Z66 Do not resuscitate; R91.8 Other nonspecific abnormal finding of lung field; G47.30 Sleep apnea, unspecified; R62.7 Adult failure to thrive; R00.0 Tachycardia, unspecified; I95.9 Hypotension, unspecified; M19.90 Unspecified osteoarthritis, unspecified site; R53.83 Other fatigue; R53.1 Weakness; M62.58 Muscle wasting and atrophy, not elsewhere classified, other site; Z74.01 Bed confinement status; Z90.5 Acquired absence of kidney; Z95.1 Presence of aortocoronary bypass graft; Z79.84 Long term (current) use of oral hypoglycemic drugs
CPT/HCPCS: 36415; 71275; 80048; 80053; 81599; 83735; 84484; 85025; 85027; 85610; 86850; 86900; 86901; 87633; 93005; 96365; 96366; 96367; 99283; 99285; A9270; G0378; G0480; J1815; J8540; Q9967; 80320; 83036

== ENCOUNTER 2021-06-03 12:29 | Outpatient (CLI) | payer MEDICARE, OTHER | END 2021-06-03 12:30 | disposition hospice, home (50) | LOC: EMS 12:29 | PROVIDERS: ATTEND Internal Medicine | DX: Z51.5 Encounter for palliative care (principal); Z74.01 Bed confinement status; R53.1 Weakness; C64.9 Malignant neoplasm of unspecified kidney, except renal pelvis; C79.9 Secondary malignant neoplasm of unspecified site | CPT/HCPCS: A0425; A0428 ==